=== PATIENT | male | born 1950 | race Caucasian/White ===

== ENCOUNTER 2019-04-30 22:07 | Inpatient (IN) | payer MEDICARE, BC, SELFPAY ==
[2019-04-30 22:12] VITALS: BP 185/85; PULSE 64; RESP 18; TEMP 36.6; O2SAT 98; BMI 26.8
[2019-04-30] MEDS: SODIUM CHLORIDE 0.9% 1,000 ML 1000 ML IV (22:21)
[2019-04-30] MEDS: KETOROLAC 60 MG/2 ML VIAL 15 MG IV (22:21)
[2019-04-30] MEDS: ONDANSETRON 4 MG/2 ML INJ IV (22:21)
[2019-04-30 22:26] LABS: Add Manual Diff / Slide Review NO; Basophils Absolute Auto 0 /uL (0-100); Basophils Percent Auto 0.3 % (0-2); Eosinophils Absolute Auto 100 /uL (0-450); Eosinophils Percent Auto 2.1 % (2-4); Hematocrit 37.8 % (41-53); Hemoglobin 12.8 g/dL (13.5-17.5); Lymphocytes Absolute Auto 1000 /uL (1100-4500); Mean Corpuscular HGB Conc 33.9 % (30-36); Mean Corpuscular Hemoglobin 32.4 PG (26-34); Mean Corpuscular Volume 95.6 fL (80-100); Monocytes Absolute Auto 700 /uL (0-900); Monocytes Percent Auto 12.2 % (3-14); Neutrophils Absolute Auto 4100 /uL (1500-7000); Neutrophils Percent Auto 69.4 % (50-75); Platelet Count 166 X10^3/uL (150-400); Red Blood Cell Count 3.95 X10^6/uL (4.5-5.9); Red Cell Distribution Width 13.7 % (11.6-14.8)
[2019-04-30 22:35] LABS: BUN Creatinine Ratio 14.2 (6-22); Blood Urea Nitrogen 75 mg/dL (9-20); Calcium 9.3 mg/dL (8.4-10.2); Carbon Dioxide 20 mmol/L (22-32); Chloride 109 mmol/L (98-107); Estimated Glomerular Filt Rate 10.8 mL/min (>60); Glucose 114 mg/dL (80-110); HEMOLYSIS < 15 (0-50); Potassium 4.9 mmol/L (3.4-5.1); Sodium 139 mmol/L (137-145)
--- NOTE | 2019-04-30 22:36 | ED.ABDPAIN ---
HPI - Abdominal Pain General Chief Complaint: Abdominal Pain Stated Complaint: Kidney Stone Time Seen by Provider: 04/30/19 22:07 Source: patient and family Mode of arrival: ambulatory Limitations: no limitations History of Present Illness HPI narrative: 68-year-old male occasional smoker with medical history significant for stroke secondary to PFO (which has been repaired), GERD, hypertension, and kidney stones presents with his with a chief complaint of severe right lower quadrant pain with radiation to his right flank over the course of the day. He denies any provocation or palliation of the pain and states that it is colicky in nature, seemingly having a mind of its own. He has had kidney stones in the past and states this feels just like prior stones. Patient denies dysuria or hematuria, but does admit to frequent night time urination and excessive thirst as of late. MD complaint: abdominal pain and flank pain Onset (ago): hour(s) Pain Consistency: intermittent Location: RLQ and R flank Severity: moderate Radiation: R flank Relieving factors: nothing Exacerbating factors: nothing Related Data Home Medications Medication Instructions Recorded Confirmed aspirin 325 mg PO QDAY #0 10/03/16 cholecalciferol (vitamin D3) 5,000 iu PO QDAY #0 10/03/16 glucosamine sulfate [Genicin] 1,500 mg PO Q DAY #0 10/03/16 ibuprofen 600 mg PO PRN PRN #0 10/03/16 lisinopril 10 mg PO QDAY #0 10/03/16 omega 7-rdt-mbw-fish oil [Fish Oil] 1,000 mg PO QDAY #0 10/03/16 omeprazole 20 mg PO QDAY #0 10/03/16 [flax seed] #0 11/18/17 Allergies Allergy/AdvReac Type Severity Reaction Status Date / Time levofloxacin [From LEVAQUIN] Allergy Mild RASH Unverified 01/03/18 12:38 hydroxyzine [From VISTARIL] AdvReac Intermediate LOOPY Unverified 01/03/18 12:38 Review of Systems Constitutional Denies chills, Denies fever(s), Denies lethargy and Denies weakness Eyes Denies change in vision, Denies eye discharge, Denies irritation and Denies loss of vision ENT Ears, Nose, Mouth, and Throat: Denies change in voice, Denies neck pain and Denies sore throat Cardiovascular Denies chest pain, Denies irregular heart rhythm, Denies lightheadedness, Denies palpitations, Denies dyspnea, Denies dyspnea on exertion and Denies orthopnea Respiratory Denies cough, Denies dyspnea, Denies dyspnea on exertion and Denies wheezing Gastrointestinal Gastrointestinal: Denies abdominal pain, Denies change in bowel habits, Denies diarrhea, Denies nausea and Denies vomiting Genitourinary Denies hematuria, Reports flank pain, Reports nocturia, Denies urinary incontinence and Denies urinary urgency Musculoskeletal Denies neck pain Integumentary/Breasts Denies pruritus, Denies erythema, Denies rash and Denies wounds Neurologic Denies confusion, Denies loss of vision and Denies weakness Psychiatric Denies anxiety, Denies confusion, Denies depression, Denies homicidal ideation and Denies suicidal ideation Endocrine Denies palpitations Hematologic/Lymphatic Denies easy bruising Allergic/Immunologic Denies wheezing [facility] Medical History (Updated 05/01/19 @ 00:14 by Jordy Kern DO) Obstructive sleep apnea syndrome (Chronic) Snoring (Resolved) Primary insomnia (Chronic) CVA (cerebral vascular accident) (Chronic) Hypertension (Chronic) Surgical History (Updated 08/07/18 @ 18:59 by NIXON Nettles) S/P percutaneous patent foramen ovale closure (Chronic ~2007) Social History Smoking Status: Current some day smoker Social History Smoking Status: Current some day smoker Exam Narrative Exam Narrative: GENERAL: 68-year-old male appears younger than stated age and clearly uncomfortable, alert oriented x3, GCS 15 HEAD: Atraumatic. Normocephalic. No temporal or scalp tenderness. EYES: Pupils equal round and reactive. Extraocular motions intact. No scleral icterus. No injection or drainage. ENT: Nose without bleeding, purulent drainage or septal hematoma. Throat without erythema, tonsillar hypertrophy or exudate. Uvula midline. Airway patent. NECK: Trachea midline. No JVD or lymphadenopathy. Supple, nontender, no meningeal signs. CARDIOVASCULAR: Regular rate and rhythm without murmurs, gallops, or rubs. RESPIRATORY: Clear to auscultation. Breath sounds equal bilaterally. No wheezes, rales, or rhonchi. GASTROINTESTINAL: Abdomen soft, mild suprapubic tenderness, nondistended. No hepato-splenomegaly, or palpable masses. No guarding. EXTREMITIES: No clubbing, cyanosis, or edema. No joint tenderness, effusion, or edema noted. BACK: Nontender without deformity or crepitance. No flank tenderness. NEURO: AOx3. SKIN: No rash or erythema. Initial Vital Signs Initial Vital Signs: Vital Signs Temperature 97.9 F 04/30/19 22:12 Pulse Rate 64 04/30/19 22:12 Respiratory Rate 18 04/30/19 22:12 Blood Pressure 185/85 H 04/30/19 22:12 Pulse Oximetry 98 04/30/19 22:12 Course Orders Ordered: ED Orders 04/30/19 22:15 Alanine Aminotransferase Stat Aspartate Aminotransferase Stat Basic Metabolic Panel Stat Complete Blood Count AUTO DIFF Stat Prostate Specific Antigen Stat 04/30/19 22:52 CT kidney ureter bladder (KUB) Stat 05/01/19 00:30 Creatinine & eGFR Stat 05/01/19 03:05 Creatinine & eGFR Stat Belladonna Alkaloids/Opium (B&O Supprettes) 1 each OR Q6HR PRN PRN Reason: Spasms Last Admin: 05/01/19 02:41 Dose: 1 each Ondansetron HCl (Zofran) 4 mg IV Q4HR PRN PRN Reason: Nausea And Vomiting Last Admin: 04/30/19 22:21 Dose: 4 mg Discontinued Medications Sodium Chloride (Normal Saline 0.9%) 1,000 mls @ 1,000 mls/hr IV BOLUS ONE Stop: 04/30/19 23:09 Last Infusion: 04/30/19 23:21 Dose: 0 mls/hr Admin: 04/30/19 22:21 Dose: 1,000 mls/hr Ketorolac Tromethamine (Toradol) 15 mg IV NOW ONE Stop: 04/30/19 22:11 Last Admin: 04/30/19 22:21 Dose: 15 mg Reevaluation(s) Reevaluation #1: Ashby catheter placed after bladder distension noted on CT, rapid improvement of symptoms, large volume of urine Consultations Consultation #1: call to urology at . No additional intervention needed at this time, certainly no need for transfer. Ashby needs to stay in until follow up with local urology Consultation #2: call to Nephrology at [facility]. No need for transfer. Local admission appropriate given downward trend of Cr/GFR, normal electrolytes, and reversible cause of renal failure Consultation #3: hospitalist happy to accept patient Vital Signs - 8 hr 04/30/19 22:12 04/30/19 23:15 04/30/19 23:33 Temperature 97.9 F Pulse Rate 64 52 L 50 L Respiratory Rate 18 16 Blood Pressure 185/85 H Blood Pressure [Left Arm] 154/80 H 154/100 H Pulse Oximetry 98 100 100 05/01/19 00:01 05/01/19 00:36 05/01/19 00:40 Temperature Pulse Rate 57 L 51 L 51 L Respiratory Rate 16 Blood Pressure Blood Pressure [Left Arm] 163/80 H 151/79 H 141/79 H Pulse Oximetry 100 98 99 05/01/19 02:03 05/01/19 03:37 Temperature Pulse Rate 53 L 50 L Respiratory Rate 16 Blood Pressure Blood Pressure [Left Arm] 148/75 H 133/79 Pulse Oximetry 99 97 MDM - Abdominal Pain Lab Data Result diagrams: 04/30/19 22:15 05/01/19 03:05 Lab Results 04/30/19 04/30/19 04/30/19 Range/Units 00:30 22:15 22:15 WBC 6.0 (4.5-11.0) X10^3/uL RBC 3.95 L (4.5-5.9) X10^6/uL Hgb 12.8 L (13.5-17.5) g/dL Hct 37.8 L (41-53) % MCV 95.6 (80-100) fL MCH 32.4 (26-34) PG MCHC 33.9 (30-36) % RDW 13.7 (11.6-14.8) % Plt Count 166 (150-400) X10^3/uL Neut % (Auto) 69.4 (50-75) % Lymph % (Auto) 16.0 L (25-40) % [place] % (Auto) 12.2 (3-14) % Eos % (Auto) 2.1 (2-4) % Baso % (Auto) 0.3 (0-2) % Neut # (Auto) 4100 (7746-5524) /uL Lymph # (Auto) 1000 L (2920-6797) /uL [place] # (Auto) 700 (0-900) /uL Eos # (Auto) 100 (0-450) /uL Baso # (Auto) 0 (0-100) /uL Sodium 139 (137-145) mmol/L Potassium 4.9 (3.4-5.1) mmol/L Chloride 109 H (98-107) mmol/L Carbon Dioxide 20 L (22-32) mmol/L BUN 75 H (9-20) mg/dL Creatinine 5.30 H (0.66-1.25) mg/dL Estimated GFR 10.8 L (>60) mL/min BUN/Creatinine Ratio 14.2 (6-22) Glucose 114 H (80-110) mg/dL Calcium 9.3 (8.4-10.2) mg/dL AST (17-59) IU/L ALT (21-72) IU/L Prostate Specific Ag (0.10-4.00) ng/mL Urine RBC 0-1/hpf (0-5/HPF) Urine WBC None seen (0-5/HPF) Ur Squamous Epith Cells None seen (0-5/HPF) Urine Bacteria None seen (None) Ur Culture Indicated? Cult not indicated 04/30/19 05/01/19 05/01/19 Range/Units 22:15 00:30 03:05 WBC (4.5-11.0) X10^3/uL RBC (4.5-5.9) X10^6/uL Hgb (13.5-17.5) g/dL Hct (41-53) % MCV (80-100) fL MCH (26-34) PG MCHC (30-36) % RDW (11.6-14.8) % Plt Count (150-400) X10^3/uL Neut % (Auto) (50-75) % Lymph % (Auto) (25-40) % [place] % (Auto) (3-14) % Eos % (Auto) (2-4) % Baso % (Auto) (0-2) % Neut # (Auto) (4457-0935) /uL Lymph # (Auto) (3049-9393) /uL [place] # (Auto) (0-900) /uL Eos # (Auto) (0-450) /uL Baso # (Auto) (0-100) /uL Sodium (137-145) mmol/L Potassium (3.4-5.1) mmol/L Chloride (98-107) mmol/L Carbon Dioxide (22-32) mmol/L BUN (9-20) mg/dL Creatinine 4.70 H 3.80 H (0.66-1.25) mg/dL Estimated GFR 12.4 L 15.9 L (>60) mL/min BUN/Creatinine Ratio (6-22) Glucose (80-110) mg/dL Calcium (8.4-10.2) mg/dL AST 20 (17-59) IU/L ALT 17 L (21-72) IU/L Prostate Specific Ag 3.93 (0.10-4.00) ng/mL Urine RBC (0-5/HPF) Urine WBC (0-5/HPF) Ur Squamous Epith Cells (0-5/HPF) Urine Bacteria (None) Ur Culture Indicated? Point of care testing: Urine Dip Bedside Urine Glucose Negative Bedside Urine Bilirubin - Negative Bedside Urine Ketone - Negative Urine Specific [place] 1.015 Bedside Urine Occult Blood +/- Bedside Urine pH 6.0 Bedside Urine Protein - Negative Bedside Urine Nitrite - Negative Bedside Urine Leukocytes - Negative Esterase Critical Care Time Critical Care Time: Yes Total Critical Care Time: 35 Attestation: The high probability of a clinically significant, sudden or life threatening deterioration of the [renal] system(s) required my full and direct attention, intervention and personal management. The aggregate critical care time was [35] minutes. This time is in addition to time spent performing reported procedures but includes the following: [x] Data Review and interpretation [x] Patient assessment and monitoring of vital signs [x] Documentation [x] Medication orders and management Discharge Plan Departure Patient Disposition: Admitted as Observation Clinical Impression: Acute bilateral obstructive uropathy Acute renal failure Qualifiers: Acute renal failure type: unspecified Qualified Code(s): N17.9 - Acute kidney failure, unspecified Admit Date/Time: 05/01/19 03:28 Admit Provider: Cheaynne Matta
--- NOTE | 2019-04-30 22:52 | DI.CT.S_ITS ---
PROCEDURE: CT KIDNEY URETER BLADDER (KUB) INDICATIONS: flank pain, history stones TECHNIQUE: Noncontrast 5 mm thick sections acquired from the diaphragms to the symphysis. 5 mm thick coronal and sagittal reformats were then performed. For radiation dose reduction, the following was used: automated exposure control, adjustment of mA and/or kV according to patient size. COMPARISON: None. FINDINGS: Image quality: Excellent. Lung bases: Lung bases are clear. The abnormal heart size. Prosthetic device between the left and right atria. Urinary system: Right kidney: No stone, moderate hydronephrosis. Calyceal rupture with perirenal fluid tracking predominantly anterior to the kidney. Multiple large exophytic renal cysts. Right ureter: Moderate island as the base of the bladder. No stone. Left kidney: Moderate hydronephrosis. No stone. Multiple large or very large exophytic renal cysts. The left ureter: Moderately dilated to the base of the bladder. No stone. There is significant enlargement of the prostate. The bladder is markedly distended, and trabeculated. Findings are consistent with bladder outlet obstruction. Other solid organs: Numerous hepatic cysts, including a partially peripherally calcified left lobe liver cyst which measures 7.8 cm. No suspicious liver masses. Gallbladder is contracted. Pancreas is normal in contours. Spleen is normal in size. No adrenal nodules. Peritoneum and bowel: Unenhanced bowel loops demonstrate normal wall thickness and caliber. No free fluid or air. The surgical clips suggest remote sigmoid colectomy. Nodes and vessels: No retroperitoneal or mesenteric adenopathy by size criteria. Aorta and inferior vena cava are normal in caliber. Abdominal wall: No ventral hernias. Pelvis: No free pelvic fluid. No inguinal hernias or adenopathy. Bones: No suspicious bony lesions. No vertebral body compression fractures. IMPRESSION: 1. Findings are consistent with bladder outlet obstruction secondary to a one enlarged prostate. The bladder is markedly distended and trabeculated. 2. There is moderate bilateral hydronephrosis and hydroureter to the level of the base of the bladder. This is consistent with obstruction at the bladder outlet. 3. There has been rupture of a right renal calyx with perirenal fluid present. Comment: Final report is concurrent with preliminary interpretation provided by [facility]. Dictated by: Dinh Sellers M.D. on 05/01/2019 at 8:46 Approved by: Dinh Sellers M.D. on 05/01/2019 at 8:54
[2019-04-30 23:15] VITALS: BP 154/80; PULSE 52; RESP 16; O2SAT 100
[2019-04-30 23:33] VITALS: BP 154/100; PULSE 50; O2SAT 100
[2019-04-30 23:50] LABS: Alanine Aminotransferase 17 IU/L (21-72); Aspartate Aminotransferase 20 IU/L (17-59)
--- NOTE | 2019-04-30 23:54 | ED_ITS ---
HPI - Abdominal Pain General Chief Complaint: Abdominal Pain Stated Complaint: Kidney Stone Time Seen by Provider: 04/30/19 22:07 Source: patient and family Mode of arrival: ambulatory Limitations: no limitations History of Present Illness HPI narrative: 68-year-old male occasional smoker with medical history signif icant for stroke secondary to PFO (which has been repaired), GERD, hypertension, and kidney stones presents with his with a chief complaint of severe right lower quadrant pain with radiation to his right flank over the course of the day. He denies any provocation or palliation of the pain and states that it is colicky in nature, seemingly having a mind of its own. He has had kidney stones in the past and states this feels just like prior stones. Patient denies dysuria or hematuria, but does admit to frequent night time urination and excessive thirst as of late. MD complaint: abdominal pain and flank pain Onset (ago): hour(s) Pain Consistency: intermittent Location: RLQ and R flank Severity: moderate Radiation: R flank Relieving factors: nothing Exacerbating factors: nothing Related Data Home Medications Medication Instructions Recorded Confirmed aspirin 325 mg PO QDAY #0 10/03/16 cholecalciferol (vitamin D3) 5,000 iu PO QDAY #0 10/03/16 glucosamine sulfate [Genicin] 1,500 mg PO Q DAY #0 10/03/16 ibuprofen 600 mg PO PRN PRN #0 10/03/16 lisinopril 10 mg PO QDAY #0 10/03/16 omega 6-std-ozw-fish oil [Fish Oil] 1,000 mg PO QDAY #0 10/03/16 omeprazole 20 mg PO QDAY #0 10/03/16 [flax seed] #0 11/18/17 Allergies Allergy/AdvReac Type Severity Reaction Status Date / Time levofloxacin [From LEVAQUIN] Allergy Mild RASH Unverified 01/03/18 12:38 hydroxyzine [From VISTARIL] AdvReac Intermediate LOOPY Unverified 01/03/18 12:38 Review of Systems Constitutional Denies chills, Denies fever(s), Denies lethargy and Denies weakness Eyes Denies change in vision, Denies eye discharge, Denies irritation and Denies loss of vision ENT Ears, Nose, Mouth, and Throat: Denies change in voice, Denies neck pain and Denies sore throat Cardiovascular Denies chest pain, Denies irregular heart rhythm, Denies lightheadedness, Denies palpitations, Denies dyspnea, Denies dyspnea on exertion and Denies orthopnea Respiratory Denies cough, Denies dyspnea, Denies dyspnea on exertion and Denies wheezing Gastrointestinal Gastrointestinal: Denies abdominal pain, Denies change in bowel habits, Denies diarrhea, Denies nausea and Denies vomiting Genitourinary Denies hematuria, Reports flank pain, Reports nocturia, Denies urinary incontinence and Denies urinary urgency Musculoskeletal Denies neck pain Integumentary/Breasts Denies pruritus, Denies erythema, Denies rash and Denies wounds Neurologic Denies confusion, Denies loss of vision and Denies weakness Psychiatric Denies anxiety, Denies confusion, Denies depression, Denies homicidal ideation and Denies suicidal ideation Endocrine Denies palpitations Hematologic/Lymphatic Denies easy bruising Allergic/Immunologic Denies wheezing [facility] Medical History (Updated 05/01/19 @ 00:14 by Jordy Kern DO) Obstructive sleep apnea syndrome (Chronic) Snoring (Resolved) Primary insomnia (Chronic) CVA (cerebral vascular accident) (Chronic) Hypertension (Chronic) Surgical History (Updated 08/07/18 @ 18:59 by NIXON Nettles) S/P percutaneous patent foramen ovale closure (Chronic ~2007) Social History Smoking Status: Current some day smoker Social History Smoking Status: Current some day smoker Exam Narrative Exam Narrative: GENERAL: 68-year-old male appears younger than stated age and clearly uncomfortable, alert oriented x3, GCS 15 HEAD: Atraumatic. Normocephalic. No temporal or scalp tenderness. EYES: Pupils equal round and reactive. Extraocular motions intact. No scleral icterus. No injection or drainage. ENT: Nose without bleeding, purulent drainage or septal hematoma. Throat without erythema, tonsillar hypertrophy or exudate. Uvula midline. Airway patent. NECK: Trachea midline. No JVD or lymphadenopathy. Supple, nontender, no meningeal signs. CARDIOVASCULAR: Regular rate and rhythm without murmurs, gallops, or rubs. RESPIRATORY: Clear to auscultation. Breath sounds equal bilaterally. No wheezes, rales, or rhonchi. GASTROINTESTINAL: Abdomen soft, mild suprapubic tenderness, nondistended. No hepato-splenomegaly, or palpable masses. No guarding. EXTREMITIES: No clubbing, cyanosis, or edema. No joint tenderness, effusion, or edema noted. BACK: Nontender without deformity or crepitance. No flank tenderness. NEURO: AOx3. SKIN: No rash or erythema. Initial Vital Signs Initial Vital Signs: Vital Signs Temperature 97.9 F 04/30/19 22:12 Pulse Rate 64 04/30/19 22:12 Respiratory Rate 18 04/30/19 22:12 Blood Pressure 185/85 H 04/30/19 22:12 Pulse Oximetry 98 04/30/19 22:12 Course Orders Ordered: ED Orders 04/30/19 22:15 Alanine Aminotransferase Stat Aspartate Aminotransferase Stat Basic Metabolic Panel Stat Complete Blood Count AUTO DIFF Stat Prostate Specific Antigen Stat 04/30/19 22:52 CT kidney ureter bladder (KUB) Stat 05/01/19 00:30 Creatinine & eGFR Stat 05/01/19 03:05 Creatinine & eGFR Stat Belladonna Alkaloids/Opium (B&O Supprettes) 1 each NH Q6HR PRN PRN Reason: Spasms Last Admin: 05/01/19 02:41 Dose: 1 each Ondansetron HCl (Zofran) 4 mg IV Q4HR PRN PRN Reason: Nausea And Vomiting Last Admin: 04/30/19 22:21 Dose: 4 mg Discontinued Medications Sodium Chloride (Normal Saline 0.9%) 1,000 mls @ 1,000 mls/hr IV BOLUS ONE Stop: 04/30/19 23:09 Last Infusion: 04/30/19 23:21 Dose: 0 mls/hr Admin: 04/30/19 22:21 Dose: 1,000 mls/hr Ketorolac Tromethamine (Toradol) 15 mg IV NOW ONE Stop: 04/30/19 22:11 Last Admin: 04/30/19 22:21 Dose: 15 mg Reevaluation(s) Reevaluation #1: Ashby catheter placed after bladder distension noted on CT, rapid improvement of symptoms, large volume of urine Consultations Consultation #1: call to urology at . No additional intervention needed at this time, certainly no need for transfer. Ashby needs to stay in until follow up with local urology Consultation #2: call to Nephrology at [facility]. No need for transfer. Local admission appropriate given downward trend of Cr/GFR, normal electrolytes, and reversible cause of renal failure Consultation #3: hospitalist happy to accept patient Vital Signs - 8 hr 04/30/19 22:12 04/30/19 23:15 04/30/19 23:33 Temperature 97.9 F Pulse Rate 64 52 L 50 L Respiratory Rate 18 16 Blood Pressure 185/85 H Blood Pressure [Left Arm] 154/80 H 154/100 H Pulse Oximetry 98 100 100 05/01/19 00:01 05/01/19 00:36 05/01/19 00:40 Temperature Pulse Rate 57 L 51 L 51 L Respiratory Rate 16 Blood Pressure Blood Pressure [Left Arm] 163/80 H 151/79 H 141/79 H Pulse Oximetry 100 98 99 05/01/19 02:03 05/01/19 03:37 Temperature Pulse Rate 53 L 50 L Respiratory Rate 16 Blood Pressure Blood Pressure [Left Arm] 148/75 H 133/79 Pulse Oximetry 99 97 MDM - Abdominal Pain Lab Data Result diagrams: 04/30/19 22:15 05/01/19 03:05 Lab Results 04/30/19 04/30/19 04/30/19 Range/Units 00:30 22:15 22:15 WBC 6.0 (4.5-11.0) X10^3/uL RBC 3.95 L (4.5-5.9) X10^6/uL Hgb 12.8 L (13.5-17.5) g/dL Hct 37.8 L (41-53) % MCV 95.6 (80-100) fL MCH 32.4 (26-34) PG MCHC 33.9 (30-36) % RDW 13.7 (11.6-14.8) % Plt Count 166 (150-400) X10^3/uL Neut % (Auto) 69.4 (50-75) % Lymph % (Auto) 16.0 L (25-40) % [place] % (Auto) 12.2 (3-14) % Eos % (Auto) 2.1 (2-4) % Baso % (Auto) 0.3 (0-2) % Neut # (Auto) 4100 (5539-4136) /uL Lymph # (Auto) 1000 L (8042-8604) /uL Bee # (Auto) 700 (0-900) /uL Eos # (Auto) 100 (0-450) /uL Baso # (Auto) 0 (0-100) /uL Sodium 139 (137-145) mmol/L Potassium 4.9 (3.4-5.1) mmol/L Chloride 109 H (98-107) mmol/L Carbon Dioxide 20 L (22-32) mmol/L BUN 75 H (9-20) mg/dL Creatinine 5.30 H (0.66-1.25) mg/dL Estimated GFR 10.8 L (>60) mL/min BUN/Creatinine Ratio 14.2 (6-22) Glucose 114 H (80-110) mg/dL Calcium 9.3 (8.4-10.2) mg/dL AST (17-59) IU/L ALT (21-72) IU/L Prostate Specific Ag (0.10-4.00) ng/mL Urine RBC 0-1/hpf (0-5/HPF) Urine WBC None seen (0-5/HPF) Ur Squamous Epith Cells None seen (0-5/HPF) Urine Bacteria None seen (None) Ur Culture Indicated? Cult not indicated 04/30/19 05/01/19 05/01/19 Range/Units 22:15 00:30 03:05 WBC (4.5-11.0) X10^3/uL RBC (4.5-5.9) X10^6/uL Hgb (13.5-17.5) g/dL Hct (41-53) % MCV (80-100) fL MCH (26-34) PG MCHC (30-36) % RDW (11.6-14.8) % Plt Count (150-400) X10^3/uL Neut % (Auto) (50-75) % Lymph % (Auto) (25-40) % [place] % (Auto) (3-14) % Eos % (Auto) (2-4) % Baso % (Auto) (0-2) % Neut # (Auto) (1977-6763) /uL Lymph # (Auto) (9611-8349) /uL Bee # (Auto) (0-900) /uL Eos # (Auto) (0-450) /uL Baso # (Auto) (0-100) /uL Sodium (137-145) mmol/L Potassium (3.4-5.1) mmol/L Chloride (98-107) mmol/L Carbon Dioxide (22-32) mmol/L BUN (9-20) mg/dL Creatinine 4.70 H 3.80 H (0.66-1.25) mg/dL Estimated GFR 12.4 L 15.9 L (>60) mL/min BUN/Creatinine Ratio (6-22) Glucose (80-110) mg/dL Calcium (8.4-10.2) mg/dL AST 20 (17-59) IU/L ALT 17 L (21-72) IU/L Prostate Specific Ag 3.93 (0.10-4.00) ng/mL Urine RBC (0-5/HPF) Urine WBC (0-5/HPF) Ur Squamous Epith Cells (0-5/HPF) Urine Bacteria (None) Ur Culture Indicated? Point of care testing: Urine Dip Bedside Urine Glucose Negative Bedside Urine Bilirubin - Negative Bedside Urine Ketone - Negative Urine Specific [place] 1.015 Bedside Urine Occult Blood +/- Bedside Urine pH 6.0 Bedside Urine Protein - Negative Bedside Urine Nitrite - Negative Bedside Urine Leukocytes - Negative Esterase Critical Care Time Critical Care Time: Yes Total Critical Care Time: 35 Attestation: The high probability of a clinically significant, sudden or life threatening deterioration of the [renal] system(s) required my full and direct attention, intervention and personal management. The aggregate critical care time was [35] minutes. This time is in addition to time spent performing reported procedures but includes the following: [x] Data Review and interpretation [x] Patient assessment and monitoring of vital signs [x] Documentation [x] Medication orders and management Discharge Plan Departure Patient Disposition: Admitted as Observation Clinical Impression: Acute bilateral obstructive uropathy Acute renal failure Qualifiers: Acute renal failure type: unspecified Qualified Code(s): N17.9 - Acute kidney failure, unspecified Admit Date/Time: 05/01/19 03:28 Admit Provider: Cheyanne Matta
[2019-05-01] VITALS (14 sets, daily range): BP systolic 133–163; BP diastolic 60–85; PULSE 40–57; RESP 16–18; TEMP 36.4–37.1; O2SAT 96–100; BMI 26.8
[2019-05-01 00:22] LABS: Prostate Specific Antigen 3.93 ng/mL (0.10-4.00)
[2019-05-01 00:34] LABS: Bacteria Urine None Seen; WBC Urine None Seen (0-5/HPF)
[2019-05-01 00:47] LABS: Culture Indicated Urine Cult Not Indicated; RBC Urine 0-1/HPF (0-5/HPF); Squamous Epithelial Cell Urine None Seen (0-5/HPF)
[2019-05-01 00:57] LABS: Estimated Glomerular Filt Rate 12.4 mL/min (>60)
--- NOTE | 2019-05-01 02:36 | PC.NURSE ---
pt ambulating to the bathroom to attempt a bowel movement
[2019-05-01] MEDS: BELLADONNA/OPIUM SUPPOSITORIES 1 EACH PR (02:41)
[2019-05-01 03:23] LABS: Estimated Glomerular Filt Rate 15.9 mL/min (>60)
--- NOTE | 2019-05-01 04:49 | PM.HP.1 ---
History of Present Illness Date Patient Seen: 05/01/19 Time Patient Seen: 04:50 Chief complaint: Kidney Stone Narrative: The patient is a 68-year-old male with PMH significant for PFO (s/p PFO closure), TIA/CVA w/residual deficit, HTN, nephrolithiasis (4-5 lifetime episodes, passed on his own w/o surgical intervention), PURNIMA (on CPAP), current tobacco dependence, OA (s/p bilateral knee replacement), and spinal stenosis. Patient does use NSAIDs daily. Patient presented to the ED out of concern for abdominal pain. Symptom onset is acute, initially noted to days ago. Initially pain localized to the LLQ of the abdomen, patient felt he was constipated and treated discomfort with milk of magnesia. Shortly after pain migrated to the RLQ of the abdomen now radiating posteriorly to the right flank. Associated symptoms include nausea and decreased urine output. Denies fever and chills. No chest pain, palpitations, dizziness, lightheadedness, dysuria, or hematuria. Patient takes naproxen daily for osteoarthritis and lumbar pain. In the ED initial lab work revealed a creatinine of 5.3, which is significantly elevated from baseline of 0.8. CT of A/P suggestive bladder outlet obstruction with bilateral hydroureteronephrosis. No urolithiasis. Enlarged prostate. ED presentation & work-up T 97.9? F BP 185/85 HR 64 RR 18 SpO2 98% on room air GCS 15 WBC 6.0 HGB 12.8 HCT 37.8 PLT 166 NA 139 K 4.9 CL 109 CA 9.3 GLU 114 CO2 20 BUN 75 CR 5.3 AST 20 ALT 17 Prostate specific AG 3.93 Urinalysis negative for sediment CT A/P without contrast Minor atelectasis at the lung bases. Partially visualized atrial septal occluder. 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 Severe bilateral hydroureteronephrosis. Urinary bladder significantly distended and trabeculated suggesting chronic outlet obstruction. The prostate is enlarged. No urolithiasis. Gallbladder solid or is otherwise unremarkable. Bowel gas pattern nonspecific. No obstruction. No hernia or acute fracture. Impression Suspect bladder outlet obstruction with resultant hydroureteronephrosis and distended trabeculated urinary bladder. ED treatment. Hand catheter was placed. Patient has diuresed 3600 ml. Received 1 L NS bolus, 4 mg of IV ondansetron, 15 mg of IV ketorolac, and belladonna/opium suppository Patient History Medical History Obstructive sleep apnea syndrome (Chronic) Snoring (Resolved) Primary insomnia (Chronic) CVA (cerebral vascular accident) (Chronic) Hypertension (Chronic) Surgical History S/P percutaneous patent foramen ovale closure (Chronic ~2007) Social History household members: spouse Smoking Status: Current some day smoker alcohol intake: current Family & Social History Social History: household members spouse Prior Living Arrangements House Safety & Behavioral: Feels Safe in Current Yes Environment Been Physically Hurt or No Threatened By a Person Suicidal Ideation Description None Suicide Plan Description No Plan Tobacco & Substance use: Tobacco type Cigars. Smoke cigarettes in the past. Smoking Status Current some day smoker. Reports 30 year history of tobacco dependence of which 10 years w/ 1 ppd. Currently smokes 1 cigar daily. alcohol intake Current. Social drinker. alcohol intake frequency 0-2 drinks per day Substance Use Type Denies use. Meds Home Medications Medication Instructions Recorded Confirmed Type cholecalciferol (vitamin D3) 5,000 iu PO QDAY #0 10/03/16 05/01/19 History glucosamine sulfate [Genicin] 1,500 mg PO Q DAY #0 10/03/16 05/01/19 History ibuprofen 600 mg PO PRN PRN #0 10/03/16 05/01/19 History lisinopril 10 mg PO QDAY #0 10/03/16 05/01/19 History omega 4-jfq-dfa-fish oil [Fish Oil] 1,000 mg PO QDAY #0 10/03/16 05/01/19 History omeprazole 20 mg PO QDAY #0 10/03/16 05/01/19 History [flax seed] #0 11/18/17 History Allergies Allergy/AdvReac Type Severity Reaction Status Date / Time levofloxacin [From LEVAQUIN] Allergy Mild RASH Unverified 01/03/18 12:38 hydroxyzine [From VISTARIL] AdvReac Intermediate LOOPY Unverified 01/03/18 12:38 Review of Systems Review of Systems All systems reviewed & are unremarkable except as noted in HPI and below Exam Vital Signs (past 8 hours): - 04/30/19 22:12 04/30/19 23:15 04/30/19 23:33 Temperature 97.9 F Pulse Rate 64 52 L 50 L Respiratory Rate 18 16 Blood Pressure 185/85 H Blood Pressure [Left Arm] 154/80 H 154/100 H Pulse Oximetry 98 100 100 05/01/19 00:01 05/01/19 00:36 05/01/19 00:40 Temperature Pulse Rate 57 L 51 L 51 L Respiratory Rate 16 Blood Pressure Blood Pressure [Left Arm] 163/80 H 151/79 H 141/79 H Pulse Oximetry 100 98 99 05/01/19 02:03 05/01/19 03:37 05/01/19 03:57 Temperature 98.5 F Pulse Rate 53 L 50 L 49 L Respiratory Rate 16 17 Blood Pressure 143/79 H Blood Pressure [Left Arm] 148/75 H 133/79 Pulse Oximetry 99 97 98 Oxygen Delivery Method Room Air Oxygen Flow Rate 0 Narrative Exam Narrative: Constitutional: NAD Neurologic: AOx3, no focal neurological deficits Head: NC, AT Eyes: PERRL, EOMI, Ears: external ears normal, no otorrhea Nose: external nose normal, no epistaxis Throat: dry MM, oropharynx w/o exudate Neck: no masses, lymphadenopathy, or JVD Chest / Respiratory: equal chest rise, unlabored respiratory effort, no dyspnea or tachypnea, diminished lower lobes, otherwise clear Heart / CV: S1S2 Abdomen / GI: round, nontender : Moderate suprapubic distention, no CVA tenderness, hand catheter present with hematuria Peripheral / Vascular: warm to touch, DP and PT pulses palpable, BLE edema 2+ pitting (pre-tibial) Skin: no ecchymosis or suspicious lesions / ulcers Objective Labs Result Diagrams: 05/01/19 05:50 05/01/19 05:50 Labs: Laboratory Results - last 24 hr 04/30/19 04/30/19 04/30/19 00:30 22:15 22:15 WBC 6.0 RBC 3.95 L Hgb 12.8 L Hct 37.8 L MCV 95.6 MCH 32.4 MCHC 33.9 RDW 13.7 Plt Count 166 Neut % (Auto) 69.4 Lymph % (Auto) 16.0 L [place] % (Auto) 12.2 Eos % (Auto) 2.1 Baso % (Auto) 0.3 Neut # (Auto) 4100 Lymph # (Auto) 1000 L [place] # (Auto) 700 Eos # (Auto) 100 Baso # (Auto) 0 Sodium 139 Potassium 4.9 Chloride 109 H Carbon Dioxide 20 L BUN 75 H Creatinine 5.30 H Estimated GFR 10.8 L BUN/Creatinine Ratio 14.2 Glucose 114 H Calcium 9.3 AST ALT Prostate Specific Ag Urine RBC 0-1/hpf Urine WBC None seen Ur Squamous Epith Cells None seen Urine Bacteria None seen Ur Culture Indicated? Cult not indicated 04/30/19 05/01/19 05/01/19 22:15 00:30 03:05 WBC RBC Hgb Hct MCV MCH MCHC RDW Plt Count Neut % (Auto) Lymph % (Auto) [place] % (Auto) Eos % (Auto) Baso % (Auto) Neut # (Auto) Lymph # (Auto) [place] # (Auto) Eos # (Auto) Baso # (Auto) Sodium Potassium Chloride Carbon Dioxide BUN Creatinine 4.70 H 3.80 H Estimated GFR 12.4 L 15.9 L BUN/Creatinine Ratio Glucose Calcium AST 20 ALT 17 L Prostate Specific Ag 3.93 Urine RBC Urine WBC Ur Squamous Epith Cells Urine Bacteria Ur Culture Indicated? Assessment & Plan Assessment & Plan narrative: Patient is admitted for obstructive uropathy and LUIS FERNANDO. Obstructive uropathy, acute, present on admission, active LUIS FERNANDO with benign urinary sediment. No evidence of an infection. CT imaging with findings of polycystic kidneys, severe bilateral hydroureteronephrosis, urinary bladder distension, and trabeculation the bladder. RF for obstructive uropathy include nephrolithiasis and enlarged prostate - Urethral catheter inserted in ED. Manage accordingly. Explained to the patient that he may need to go home with a Hand catheter. - Concern for post-obstructive diuresis, UO 4300 (3600 ED + 700 on unit), will need to monitor closely; so far has received 1L on IVF. - NS bolus 1L, then NS at 250 ml / hr - Close monitoring of VS, I/O (Q2H), and electrolytes - Replete electrolyte disturbances accordingly - Supportive care: pain and nausea management Acute kidney injury, present on admission, active Baseline sCr 0.8. Presented w/ sCr 5.3. LUIS FERNANDO in the setting of obstructive uropathy. Recovery of renal function will depend on extent induration of the obstruction. - sCr downward trending, 5.3 -> 4.7 -> 3.8, continue trending - Freq lab monitoring and e-lyte repletion Post-obstructive diuresis, acute, complication of bladder decompression, active Initial output of 1000 mils post insertion of urethral catheter. Followed by 800 to a 1000 male diuresis each hour. Diuresed 4300 since 2350 to 0500, w/ 1L of infused. - 1L NS bolus, followed NS at 250 ml/hr - Close monitoring of urine output and electrolytes. Consider checking urine and serum osmolality. renal panel, mag q4h starting at 10 am x6 - IV fluid with normal saline, will need to be adjusted to no more than 75% of the prior to our urine output to avoid stimulation of further diuresis - Close monitoring for hypovolemia, hemodynamic instability, acid-base disturbances, and electrolyte imbalance Metabolic acidosis w/normal anion gap, acute, present on admission, active - Complication of bladder outlet obstruction, correct underlying condition Essential hypertension, chronic condition, present on admission, active Patient notes will control BP at home with lisinopril. BP elevated on initial presentation, likely a sequela of bladder outlet obstruction. BP downward trending with bladder decompression. Patient is at risk of transient hypotension and post obstructive diuresis. - Monitor BP closely, Q4H and prn - Hold CHIMNEY BUILDER BRICK lisinopril at this time Hematuria, acute, present on admission, active Hematuria has become apparent after placement urethral catheter. Likely transient. - Continue monitoring - Trend hemoglobin level, H/H q8h starting at 10 am x3 Full code. Spouse is the designated surrogate decision maker. Home medications reviewed and reconciled accordingly. VTE prophylaxis with SCDs. Quality VTE Deep Vein Thrombosis/Pulmonary Embolism Present on Admission: No
--- NOTE | 2019-05-01 05:22 | PC.ADMIT ---
Safe handoff from Sandra MOREAU, ED. Pt arrived on stretcher at 0357, was able to ambulate to bed. Pt VSS, lung sounds are clear bilaterally. Pt denies pain or nausea at this time. Pt has hand catheter that has urine output w/ hematuria. Pt was educated about the use of call light and it is within reach. Patient is calm and cooperative. [email or web address] Admission Note: The patient,Richmond Jane,68 y/o, was given written information regarding hospital policies, unit procedures and contact persons. Patient's smoking status: Current some day smoker. Vital Signs - 8 hr 04/30/19 22:12 04/30/19 23:15 04/30/19 23:33 Temperature 97.9 F Pulse Rate 64 52 L 50 L Respiratory Rate 18 16 Blood Pressure 185/85 H Blood Pressure [Left Arm] 154/80 H 154/100 H Pulse Oximetry 98 100 100 05/01/19 00:01 05/01/19 00:36 05/01/19 00:40 Temperature Pulse Rate 57 L 51 L 51 L Respiratory Rate 16 Blood Pressure Blood Pressure [Left Arm] 163/80 H 151/79 H 141/79 H Pulse Oximetry 100 98 99 05/01/19 02:03 05/01/19 03:37 05/01/19 03:57 Temperature 98.5 F Pulse Rate 53 L 50 L 49 L Respiratory Rate 16 17 Blood Pressure 143/79 H Blood Pressure [Left Arm] 148/75 H 133/79 Pulse Oximetry 99 97 98
[2019-05-01] MEDS: SODIUM CHLORIDE 0.9% 500 ML 1000 ML IV (05:53)
--- NOTE | 2019-05-01 06:02 | PC.NURSE ---
Pt had 750 ml of urine out at 0550, 500ml bolus of NS given. Pt then started on NS 250ml/hr.
[2019-05-01 06:12] LABS: Add Manual Diff / Slide Review NO; Basophils Absolute Auto 0 /uL (0-100); Basophils Percent Auto 0.4 % (0-2); Eosinophils Absolute Auto 100 /uL (0-450); Eosinophils Percent Auto 2.3 % (2-4); Hematocrit 34.4 % (41-53); Hemoglobin 11.9 g/dL (13.5-17.5); Lymphocytes Absolute Auto 900 /uL (1100-4500); Lymphocytes Percent Auto 18.1 % (25-40); Mean Corpuscular HGB Conc 34.5 % (30-36); Mean Corpuscular Hemoglobin 32.7 PG (26-34); Mean Corpuscular Volume 94.9 fL (80-100); Monocytes Absolute Auto 600 /uL (0-900); Monocytes Percent Auto 10.9 % (3-14); Neutrophils Absolute Auto 3600 /uL (1500-7000); Neutrophils Percent Auto 68.3 % (50-75); Platelet Count 156 X10^3/uL (150-400); Red Blood Cell Count 3.62 X10^6/uL (4.5-5.9); Red Cell Distribution Width 13.8 % (11.6-14.8); White Blood Cell Count 5.2 X10^3/uL (4.5-11.0)
[2019-05-01 06:18] LABS: Lactate (Lactic Acid) 0.6 mmol/L (0.7-2.1)
[2019-05-01 06:19] LABS: Albumin 3.6 g/dL (3.5-5.0); BUN Creatinine Ratio 16.2 (6-22); Blood Urea Nitrogen 55 mg/dL (9-20); Calcium 9.3 mg/dL (8.4-10.2); Carbon Dioxide 20 mmol/L (22-32); Chloride 112 mmol/L (98-107); Glucose 98 mg/dL (80-110); HEMOLYSIS < 15 (0-50); Magnesium 2.5 mg/dL (1.6-2.3); Phosphorous 4.2 mg/dL (2.3-3.7); Sodium 140 mmol/L (137-145); Uric Acid 8.1 mg/dL (3.5-8.5)
[2019-05-01] MEDS: SODIUM CHLORIDE 0.9% 1,000 ML 250 ML IV ×3 (06:25→14:35)
--- NOTE | 2019-05-01 09:18 | CM.DANOTE ---
DCP: Case received, EMR reviewed and met with patient. Introduced self and role. Was able to meet with patient and obtain some baseline health history. DCP assessment completed with information currently available. Patient is a 68 year old male who admitted early this morning to the care of the hospitalist team. PCP: Dr. Crockett. Payer: confirmed: Medicare/BCBS Out of [facility]. Patient came to the hospital via family vehicle secondary to symptoms of kidney stone. Patient holds diagnosis of urinary retention. Met with patient in his room. He stated, I really thought it was a kidney stone, because I have had them before, and they told me that it could be my prostate, because there was some kind of blockage. At this time, he has a hand catheter. Patient is alert and oriented, independent. He resides here in [place] with his spouse, Fanta. He will be having some tests while he is here in the hospital. P: DCP to follow closely, and be available for any resources that patient may need at discharge. Rika Bah RN/Weigher Operator
[2019-05-01 11:51] LABS: Hematocrit 35.2 % (41-53); Hemoglobin 12.1 g/dL (13.5-17.5)
[2019-05-01 11:59] LABS: Albumin 3.6 g/dL (3.5-5.0); BUN Creatinine Ratio 18.8 (6-22); Blood Urea Nitrogen 45 mg/dL (9-20); Calcium 8.9 mg/dL (8.4-10.2); Carbon Dioxide 21 mmol/L (22-32); Chloride 112 mmol/L (98-107); Glucose 101 mg/dL (80-110); HEMOLYSIS < 15 (0-50); Magnesium 2.4 mg/dL (1.6-2.3); Phosphorous 3.3 mg/dL (2.3-3.7); Potassium 5.3 mmol/L (3.4-5.1); Sodium 140 mmol/L (137-145)
[2019-05-01 14:53] LABS: Albumin 3.5 g/dL (3.5-5.0); Blood Urea Nitrogen 42 mg/dL (9-20); Calcium 8.8 mg/dL (8.4-10.2); Carbon Dioxide 20 mmol/L (22-32); Chloride 112 mmol/L (98-107); Estimated Glomerular Filt Rate 33.3 mL/min (>60); Glucose 121 mg/dL (80-110); HEMOLYSIS < 15 (0-50); Magnesium 2.2 mg/dL (1.6-2.3); Phosphorous 3.4 mg/dL (2.3-3.7); Potassium 5.1 mmol/L (3.4-5.1); Sodium 141 mmol/L (137-145)
--- NOTE | 2019-05-01 16:07 | PM.EVENT ---
Date Patient Seen: 05/01/19 Patient seen and examined, chart reviewed, patient has no specific complaints. He is not short of breath and has no pain. He continues to put out significant urine. His creatinine has improved from 5.3 down to 2.0. He understands that he will likely will be discharged home on a Ashby catheter. Will start Flomax at this time. Impression 1. Acute renal failure, secondary to ATN, improving Plan continue IV hydration, add Flomax
[2019-05-01] MEDS: TAMSULOSIN 0.4 MG CAPSULE PO (17:19)
[2019-05-01] MEDS: SODIUM CHLORIDE 0.9% 1,000 ML 150 ML IV (17:20)
[2019-05-01 21:07] LABS: Hematocrit 35.4 % (41-53)
[2019-05-01 21:14] LABS: Albumin 3.5 g/dL (3.5-5.0); BUN Creatinine Ratio 22.4 (6-22); Blood Urea Nitrogen 38 mg/dL (9-20); Carbon Dioxide 23 mmol/L (22-32); Chloride 109 mmol/L (98-107); Estimated Glomerular Filt Rate 40.2 mL/min (>60); Glucose 106 mg/dL (80-110); HEMOLYSIS < 15 (0-50); Magnesium 2.2 mg/dL (1.6-2.3); Phosphorous 3.7 mg/dL (2.3-3.7); Potassium 5.3 mmol/L (3.4-5.1); Sodium 138 mmol/L (137-145)
[2019-05-02] VITALS (7 sets, daily range): BP systolic 127–144; BP diastolic 61–79; PULSE 46–58; RESP 16–18; TEMP 36.5–37; O2SAT 94–98
[2019-05-02 02:08] LABS: Hematocrit 35.1 % (41-53); Hemoglobin 12.3 g/dL (13.5-17.5)
[2019-05-02 02:24] LABS: Albumin 3.3 g/dL (3.5-5.0); Blood Urea Nitrogen 33 mg/dL (9-20); Carbon Dioxide 23 mmol/L (22-32); Chloride 111 mmol/L (98-107); Estimated Glomerular Filt Rate 46.4 mL/min (>60); Glucose 98 mg/dL (80-110); HEMOLYSIS < 15 (0-50); Magnesium 2.1 mg/dL (1.6-2.3); Phosphorous 3.3 mg/dL (2.3-3.7); Sodium 138 mmol/L (137-145)
[2019-05-02] MEDS: SODIUM CHLORIDE 0.9% 1,000 ML 150 ML IV (03:04)
--- NOTE | 2019-05-02 03:11 | PC.NURSE ---
Senior Design Engineer Note: 0000: Pt resting in bed. Vital signs stable. Remains on telemetry. Ashby catheter patent, draining large amt clear asha urine. Ashby drainage bag changed to urinemeter. IV in place in rt forearm, with NS infusing at 150cc/hr. Pt denies pain or discomfort at this time.
[2019-05-02 06:04] LABS: Add Manual Diff / Slide Review NO; Basophils Absolute Auto 0 /uL (0-100); Basophils Percent Auto 0.7 % (0-2); Eosinophils Absolute Auto 100 /uL (0-450); Eosinophils Percent Auto 2.5 % (2-4); Hematocrit 36.9 % (41-53); Hemoglobin 12.6 g/dL (13.5-17.5); Lymphocytes Absolute Auto 1400 /uL (1100-4500); Lymphocytes Percent Auto 27.2 % (25-40); Mean Corpuscular Hemoglobin 32.4 PG (26-34); Mean Corpuscular Volume 95.3 fL (80-100); Monocytes Absolute Auto 500 /uL (0-900); Monocytes Percent Auto 10.1 % (3-14); Neutrophils Absolute Auto 3100 /uL (1500-7000); Neutrophils Percent Auto 59.5 % (50-75); Platelet Count 163 X10^3/uL (150-400); Red Blood Cell Count 3.88 X10^6/uL (4.5-5.9); Red Cell Distribution Width 13.5 % (11.6-14.8); White Blood Cell Count 5.2 X10^3/uL (4.5-11.0)
[2019-05-02 06:15] LABS: Albumin 3.6 g/dL (3.5-5.0); BUN Creatinine Ratio 18.1 (6-22); Blood Urea Nitrogen 29 mg/dL (9-20); Calcium 9.2 mg/dL (8.4-10.2); Carbon Dioxide 24 mmol/L (22-32); Chloride 111 mmol/L (98-107); Estimated Glomerular Filt Rate 43.1 mL/min (>60); Glucose 97 mg/dL (80-110); HEMOLYSIS < 15 (0-50); Magnesium 2.2 mg/dL (1.6-2.3); Phosphorous 3.2 mg/dL (2.3-3.7); Potassium 5.1 mmol/L (3.4-5.1); Sodium 140 mmol/L (137-145)
[2019-05-02 06:23] LABS: BUN Creatinine Ratio 20.7 (6-22); Blood Urea Nitrogen 29 mg/dL (9-20); Calcium 9.2 mg/dL (8.4-10.2); Carbon Dioxide 25 mmol/L (22-32); Chloride 111 mmol/L (98-107); Estimated Glomerular Filt Rate 50.2 mL/min (>60); Glucose 98 mg/dL (80-110); HEMOLYSIS 16 (0-50); Sodium 139 mmol/L (137-145)
[2019-05-02] MEDS: TAMSULOSIN 0.4 MG CAPSULE PO (08:53)
--- NOTE | 2019-05-02 11:41 | P.DS_ITS ---
History of Present Illness Date Patient Seen: 05/02/19 Chief complaint: Kidney Stone Narrative: he patient is a 68-year-old male with PMH significant for PFO (s/p PFO closure), TIA/CVA w/residual deficit, HTN, nephrolithiasis (4-5 lifetime episodes, passed on his own w/o surgical intervention), PURNIMA (on CPAP), current tobacco dependence, OA (s/p bilateral knee replacement), and spinal stenosis. Patient does use NSAIDs daily. Patient presented to the ED out of concern for abdominal pain. Symptom onset is acute, initially noted to days ago. Initially pain localized to the LLQ of the abdomen, patient felt he was constipated and treated discomfort with milk of magnesia. Shortly after pain migrated to the RLQ of the abdomen now radiating posteriorly to the right flank. Associated symptoms include nausea and decreased urine output. Denies fever and chills. No chest pain, palpitations, dizziness, lightheadedness, dysuria, or hematuria. Patient takes naproxen daily for osteoarthritis and lumbar pain. In the ED initial lab work revealed a creatinine of 5.3, which is significantly elevated from baseline of 0.8. CT of A/P suggestive bladder outlet obstruction with bilateral hydroureteronephrosis. No urolithiasis. Enlarged prostate. Discharge Providers Date of admission: 05/01/19 03:28 Discharge Date: 05/02/19 Primary care physician: Mirza Crockett MD Discharge provider: Yaquelin Torres MD Summary Discharge Diagnosis: 1. Acute renal failure secondary to 2. Bladder outlet obstruction 3. Bilateral hydronephrosis 4. Prostatic hypertrophy 5. Hypertension 6. GERD 7. Bilateral renal cysts Hospital Course: The patient is 68-year-old male who was admitted to the [facility] for acute renal failure secondary to bladder outlet obstruction with associated bilateral hydronephrosis. Patient had a Hand catheter placed with significant diuresis following. He was given IV hydration which resulted and improvement. His electrolytes remain normal. His creatinine decreased from 5.3 down to 1.4. The patient had evidence of chronic urinary retention on CT scan. Therefore Hand catheter was left in place. The patient was started on Flomax. He will follow up as an outpatient with Urology. The patient recovered quicker than expected. The patient denies any abdominal pain, he does have some discomfort from the Hand catheter, otherwise has no significant complaints. He had minimal bleeding with movement but the urine remains clear. The patient was deemed rajiv ropriate for discharge and arrangements are being made for him to follow up with Urology as an outpatient and he will follow up his primary care physician Dr. Crockett next week. Status at Discharge Cognitive/behavioral status at discharge: oriented Functional status at discharge: independent ambulation Overall status at discharge: patient is back to baseline Time Spent with Patient Less than 30 minutes Exam Vital Signs (past 8 hours): - 05/02/19 05:00 05/02/19 07:10 05/02/19 07:55 Temperature 98.6 F 98.3 F Pulse Rate 54 L 46 L Respiratory Rate 17 16 Blood Pressure 127/61 131/77 Pulse Oximetry 97 94 97 Oxygen Delivery Method Room Air Oxygen Flow Rate 0 Narrative Exam Narrative: Pleasant gentleman in no acute distress Lungs: Clear to auscultation Cardiac exam: Regular rate rhythm normal S1-S2 Abdomen: Soft and nontender Extremities: No edema : Hand catheter in place Objective Labs Result Diagrams: 05/02/19 05:45 05/02/19 05:45 Labs: Laboratory Results - last 24 hr 05/01/19 05/01/19 05/01/19 11:40 11:40 14:28 WBC RBC Hgb 12.1 L Hct 35.2 L MCV MCH MCHC RDW Plt Count Neut % (Auto) Lymph % (Auto) [place] % (Auto) Eos % (Auto) Baso % (Auto) Neut # (Auto) Lymph # (Auto) [place] # (Auto) Eos # (Auto) Baso # (Auto) Sodium 140 141 Potassium 5.3 H 5.1 Chloride 112 H 112 H Carbon Dioxide 21 L 20 L BUN 45 H 42 H Creatinine 2.40 H 2.00 H Estimated GFR 27.0 L 33.3 L BUN/Creatinine Ratio 18.8 21.0 Glucose 101 121 H Calcium 8.9 8.8 Phosphorus 3.3 3.4 Magnesium 2.4 H 2.2 Albumin 3.6 3.5 05/01/19 05/01/19 05/02/19 20:45 20:45 01:55 WBC RBC Hgb 12.0 L 12.3 L Hct 35.4 L 35.1 L MCV MCH MCHC RDW Plt Count Neut % (Auto) Lymph % (Auto) [place] % (Auto) Eos % (Auto) Baso % (Auto) Neut # (Auto) Lymph # (Auto) [place] # (Auto) Eos # (Auto) Baso # (Auto) Sodium 138 Potassium 5.3 H Chloride 109 H Carbon Dioxide 23 BUN 38 H Creatinine 1.70 H Estimated GFR 40.2 L BUN/Creatinine Ratio 22.4 H Glucose 106 Calcium 9.0 Phosphorus 3.7 Magnesium 2.2 Albumin 3.5 05/02/19 05/02/19 05/02/19 01:55 05:45 05:45 WBC 5.2 RBC 3.88 L Hgb 12.6 L Hct 36.9 L MCV 95.3 MCH 32.4 MCHC 34.0 RDW 13.5 Plt Count 163 Neut % (Auto) 59.5 Lymph % (Auto) 27.2 [place] % (Auto) 10.1 Eos % (Auto) 2.5 Baso % (Auto) 0.7 Neut # (Auto) 3100 Lymph # (Auto) 1400 [place] # (Auto) 500 Eos # (Auto) 100 Baso # (Auto) 0 Sodium 138 140 Potassium 5.0 5.1 Chloride 111 H 111 H Carbon Dioxide 23 24 BUN 33 H 29 H Creatinine 1.50 H 1.60 H Estimated GFR 46.4 L 43.1 L BUN/Creatinine Ratio 22.0 18.1 Glucose 98 97 Calcium 9.0 9.2 Phosphorus 3.3 3.2 Magnesium 2.1 2.2 Albumin 3.3 L 3.6 05/02/19 05:45 WBC RBC Hgb Hct MCV MCH MCHC RDW Plt Count Neut % (Auto) Lymph % (Auto) [place] % (Auto) Eos % (Auto) Baso % (Auto) Neut # (Auto) Lymph # (Auto) [place] # (Auto) Eos # (Auto) Baso # (Auto) Sodium 139 Potassium 5.0 Chloride 111 H Carbon Dioxide 25 BUN 29 H Creatinine 1.40 H Estimated GFR 50.2 L BUN/Creatinine Ratio 20.7 Glucose 98 Calcium 9.2 Phosphorus Magnesium Albumin Discharge Plan Discharge Plan Discharge Problem: Acute bilateral obstructive uropathy, Acute renal failure Patient Disposition: Home Discharge comment: Patient to follow up with Urology [facility] [phone] Please call to schedule follow up appointment 1-2 weeks Discharge Med Rec/Prescriptions Prescriptions: New tamsulosin [Flomax] 0.4 mg Capsule 0.4 mg PO DAILY Qty: 30 RF: 0 Continued lisinopril 10 MG tablet 10 mg PO QDAY Qty: 0 RF: 0 omega 5-vni-nal-fish oil [Fish Oil] 1,000 MG capsule 1,000 mg PO QDAY Qty: 0 RF: 0 cholecalciferol (vitamin D3) 10,000 UNIT tablet 5,000 iu PO QDAY Qty: 0 RF: 0 omeprazole 20 MG capsule,delayed release(DR/EC) 20 mg PO QDAY Qty: 0 RF: 0 glucosamine sulfate [Genicin] 500 MG capsule 1,500 mg PO Q DAY Qty: 0 RF: 0 [flax seed] Qty: 0 RF: 0 Discontinued ibuprofen 200 MG tablet 600 mg PO PRN PRN (Reason: Pain (Scale Score 1-3)) Qty: 0 RF: 0 Follow up/Referrals: Mirza Crockett MD [Primary Care Provider] - Provider Discharge Instructions Diet: Low-sodium Activity: as tolerated Other treatments: continue hand catheter Visit Report/Discharge Packet Instructions: How to Care for Your Hand Catheter -- Male, DI for Constipation, Tamsulosin Discharge Data Primary Care Provider: Mirza Crockett Attending Provider: Cheyanne Matta Admit Date/Time: 05/01/19 03:28 Quality VTE Deep Vein Thrombosis/Pulmonary Embolism Present on Admission: No
--- NOTE | 2019-05-02 15:34 | PC.NURSE ---
pending discharge: Pt feels ready to d/c home. MD Torres reviewed d/c instructions with pt. Leg bag given and instructed in use. Pt is able to take the bag off and on leg. Instructed in how to clean the leg bag and hand bag and how to do self cath care. His appt to urology has been made and was already scheduled to see his PCP Crockett this monday. Reviewed d/c instruction sheets. Questions answered. Will d/c home when arrives.
[2019-05-02 15:58] LABS: Prostate Specific Antigen 3.49 ng/mL (0.10-4.00)
--- NOTE | 2019-05-02 16:26 | PC.NURSE ---
Vesna powers note: Patient alert and pleasant. Discharged home via in stable condition. Discussed importance of discharge instructions and follow up appt. with PMD. Verbalized understanding of instructions. Home with via private vehicle.
== END 2019-05-02 16:28 | disposition home or self-care (01) | DRG 683 ==
LOC: ED 05-01 03:28 → AC 05-01 08:55
PROVIDERS: Internal Medicine; Admitting Provider Nurse Practitioner Gerontology; Emergency Provider Emergency Medicine; Family Provider Internal Medicine; PCP Internal Medicine; Visit Provider Nurse Practitioner Gerontology
DX: N17.9 Acute kidney failure, unspecified (principal); N13.8 Other obstructive and reflux uropathy; E87.2 Acidosis; Q61.3 Polycystic kidney, unspecified; N40.1 Benign prostatic hyperplasia with lower urinary tract symptoms; N13.30 Unspecified hydronephrosis; R31.0 Gross hematuria; I10 Essential (primary) hypertension; G47.33 Obstructive sleep apnea (adult) (pediatric); F17.290 Nicotine dependence, other tobacco product, uncomplicated
CPT/HCPCS: 36415; 36591; 51701; 74176; 80048; 80069; 81003; 81015; 82565; 83605; 83735; 84153; 84450; 84460; 84550; 85014; 85018; 85025; 96361; 96374; 96375; 99284; 99285; J1885; J2405

== ENCOUNTER → 2019-05-21 09:32 | Outpatient (CLI) | payer MEDICARE, BC, SELFPAY ==
[2019-05-01 04:07] VITALS: BMI 26.8
--- NOTE | 2019-05-21 | DI.US.S_ITS ---
PROCEDURE: US RENAL COMPLETE INDICATIONS: CYST TECHNIQUE: Real-time scanning was performed of the kidneys and bladder, with image documentation. COMPARISON: [facility], CT, CT KIDNEY URETER BLADDER (KUB), 04/30/2019, 22:56. FINDINGS: Kidneys: Kidneys are normal in size. Right kidney measures 12.6 cm long; left kidney measures 15.8 cm long. Right renal cortical thickness is 1.9 cm; left renal cortical thickness is 1.3 cm. Renal cortical echotexture is normal. No hydronephrosis or nephrolithiasis. No suspicious solid mass lesions. Bilateral simple appearing renal cysts are seen. The largest cyst on the right measures up to 5.9 cm. The largest cyst in the left measures up to 8.3 cm. Bladder: A Ashby catheter decompresses the urinary bladder. There is a nonvascular solid mass versus hematoma seen involving the urinary bladder that measures up to 10.2 cm. Miscellaneous: There is mild free fluid seen involving the left flank, as previously demonstrated. IMPRESSION: No hydronephrosis is now seen. Bilateral prominent renal cysts are seen. The urinary bladder is decompressed by a catheter. There is a 10.2 cm nonvascular focus seen within the bladder, likely representing hemorrhage. Differential diagnosis includes a bladder mass, yet this is considered to be less likely given the prior CT appearance. Mild left flank free fluid can be seen. Dictated by: Bakari Maldonado M.D. on 05/21/2019 at 12:15 Approved by: Bakari Maldonado M.D. on 05/21/2019 at 12:19
== END ==
PROVIDERS: Family Provider Internal Medicine; PCP Internal Medicine; Visit Provider Urology
DX: N28.1 Cyst of kidney, acquired (principal)
CPT/HCPCS: 76770

== ENCOUNTER 2019-05-22 23:45 | Emergency (ER) | payer MEDICARE, BC, SELFPAY ==
[2019-05-01 04:07] VITALS: BMI 26.8
[2019-05-22 23:55] VITALS: BP 136/81; PULSE 75; RESP 15; TEMP 37.1; O2SAT 97; BMI 26.4
--- NOTE | 2019-05-23 00:55 | PC.NURSE ---
Patient reports that his catheter is no longer draining. States he was at his urologist's earlier today and had a 16fr coude placed to a leg bag which was draining great, no blood. States at 2130 the bag stopped draining urine. Pt reports no pain and arrives for further eval. Upon bladder scan, pt had approximately 500mL of urine retained. The present catheter was discontinued without complications and a new 18Fr coude placed to the leg bag which drained 900mL of clear urine. Patient reports he can not feel any difference, but states also that he wasn't feeling the urge to go when he came in either. Patient catheter placed with sterile technique, pt tolerated well. Urine to lab.
[2019-05-23 00:59] VITALS: BP 130/78; PULSE 75; RESP 18; O2SAT 100
[2019-05-23 01:04] LABS: Bacteria Urine None Seen
--- NOTE | 2019-05-23 01:08 | ED.MALEGU ---
HPI - Male Genitourinary General Chief complaint: Urogenital-Male Stated complaint: catheter is leaking, not working properly Time Seen by Provider: 05/23/19 00:23 Source: patient Mode of arrival: ambulatory Limitations: no limitations History of Present Illness HPI Narrative: Patient is a 68-year-old male who presents with leaking around his Ashby catheter. He had acute renal failure due to urinary retention. He was actually at the Urology office today worried Ashby catheter changed. He is unable to urinate on his own. Change around 3:00 p.m.. Around 930 they noticed that it stopped draining he had absolutely no abdominal pain. Related Data Home Medications Medication Instructions Recorded Confirmed cholecalciferol (vitamin D3) 5,000 iu PO QDAY #0 10/03/16 05/01/19 glucosamine sulfate [Genicin] 1,500 mg PO Q DAY #0 10/03/16 05/01/19 lisinopril 10 mg PO QDAY #0 10/03/16 05/01/19 omega 8-rju-ncg-fish oil [Fish Oil] 1,000 mg PO QDAY #0 10/03/16 05/01/19 omeprazole 20 mg PO QDAY #0 10/03/16 05/01/19 [flax seed] #0 11/18/17 Previous Rx's Medication Instructions Recorded tamsulosin [Flomax] 0.4 mg PO DAILY #30 cap 05/02/19 Allergies Allergy/AdvReac Type Severity Reaction Status Date / Time levofloxacin [From LEVAQUIN] Allergy Mild RASH Verified 05/22/19 23:55 hydroxyzine [From VISTARIL] AdvReac Intermediate LOOPY Verified 05/22/19 23:55 Review of Systems Review of Systems Narrative: GENERAL: Denies chills,fever HEENT: Denies throat pain RESPIRATORY: Denies dyspnea, cough, wheezing CARDIOVASCULAR: Denies chest pain, palpitations GASTROINTESTINAL: Denies nausea, vomiting : See HPI MUSCULOSKELETAL: Denies extremity pain, injury SKIN: No rash, no laceration, no pruritus NEUROLOGIC: Denies weakness, dizziness, headache, numbness 8 point review of systems is negative except for those stated above and HPI PFSH Medical History CVA (cerebral vascular accident) (Chronic) Hypertension (Chronic) Obstructive sleep apnea syndrome (Chronic) Primary insomnia (Chronic) Snoring (Resolved) Surgical History S/P percutaneous patent foramen ovale closure (Chronic ~2007) Family History (Updated 05/01/19 @ 06:03 by NIXON Piedra) Grandfather Stroke Sister PFO (patent foramen ovale) Social History household members: spouse Smoking Status: Current some day smoker alcohol intake: current Family History Grandfather Stroke Sister PFO (patent foramen ovale) Social History household members: spouse Smoking Status: Current some day smoker alcohol intake: current Exam Initial Vital Signs Initial Vital Signs: Vital Signs Temperature 98.7 F 05/22/19 23:55 Pulse Rate 75 05/22/19 23:55 Respiratory Rate 15 05/22/19 23:55 Blood Pressure 136/81 05/22/19 23:55 Pulse Oximetry 97 05/22/19 23:55 GENERAL: Well-appearing, well-nourished and in no acute distress. CARDIOVASCULAR: peripheral pulses in tact, cap refill <2 sec RESPIRATORY: No respiratory distress, speaks in full sentences without difficulty ABDOMEN: Soft, nontender, no guarding or rebound : Ashby catheter in place young clean no gross hematuria EXTREMITIES: Normal range of motion, no clubbing or edema. Neurovascularly intact NEUROLOGICAL: Cranial nerves II through XII grossly intact. Normal gait and speech. SKIN: Warm, dry, no petechiae, no rashes or lesions. Course Orders Ordered: ED Orders 05/23/19 00:46 Urine Culture Stat Urine Microscopic Stat Vital Signs Vital signs: Vital Signs - 8 hr 05/22/19 23:55 05/23/19 00:59 Temperature 98.7 F Pulse Rate 75 75 Respiratory Rate 15 18 Blood Pressure 136/81 Blood Pressure [Left Arm] 130/78 Pulse Oximetry 97 100 MDM - Male Genitourinary Lab Data Attestation: I reviewed the patient's lab results. Labs: Lab Results 05/23/19 Range/Units 00:46 Urine RBC 0-1/hpf (0-5/HPF) Urine WBC 5-10/hpf H (0-5/HPF) Urine Bacteria None seen (None) Ur Culture Indicated? Specimen cultured Urine Dip Bedside Urine Glucose Negative Bedside Urine Bilirubin - Negative Bedside Urine Ketone - Negative Urine Specific [place] [facility] 1.010 Bedside Urine Occult Blood +++ Bedside Urine pH 6.0 Bedside Urine Protein - Negative Bedside Urine Urobilinogen - Negative Bedside Urine Nitrite - Negative Bedside Urine Leukocytes + 70 Esterase MDM Narrative Medical decision making narrative: Patient has had a Ashby catheter for at least the last 3 weeks. Some will wait for culture sensitivity to return. At this time he is afebrile he is asymptomatic. Discharge Plan Departure Patient Disposition: Home Clinical Impression: Acute urinary retention Discharge Date/Time: 05/23/19 01:24 Instructions: How to Care for Your Ashby Catheter -- Male Activity Restrictions/Additional Instructions: *You have been diagnosed with urinary retention *What to do: At this time will wait for your culture to return before starting antibiotics. *Continue to take medications as directed *Follow up with your primary care provider in 2-3 days *Return to ER if you should have decreased Ashby output, gross blood in tube or any new, worsening or concerning symptoms Prescriptions: No Action lisinopril 10 MG tablet 10 mg PO QDAY Qty: 0 RF: 0 omega 4-flx-ifm-fish oil [Fish Oil] 1,000 MG capsule 1,000 mg PO QDAY Qty: 0 RF: 0 cholecalciferol (vitamin D3) 10,000 UNIT tablet 5,000 iu PO QDAY Qty: 0 RF: 0 omeprazole 20 MG capsule,delayed release(DR/EC) 20 mg PO QDAY Qty: 0 RF: 0 glucosamine sulfate [Genicin] 500 MG capsule 1,500 mg PO Q DAY Qty: 0 RF: 0 [flax seed] Qty: 0 RF: 0 tamsulosin [Flomax] 0.4 mg Capsule 0.4 mg PO DAILY Qty: 30 RF: 0 Referrals: Mirza Crockett MD [Primary Care Provider] -
[2019-05-23 01:15] LABS: Culture Indicated Urine Specimen Cultured; RBC Urine 0-1/HPF (0-5/HPF); WBC Urine 5-10/HPF (0-5/HPF)
== END 2019-05-23 01:24 | disposition home or self-care (01) ==
PROVIDERS: Emergency Provider Emergency Medicine; Family Provider Internal Medicine; PCP Internal Medicine
DX: R33.8 Other retention of urine (principal); G47.33 Obstructive sleep apnea (adult) (pediatric)
CPT/HCPCS: 51701; 51705; 51798; 81003; 81015; 87086; 99214; 99282; 99283

== ENCOUNTER → 2019-08-21 16:12 | Outpatient (ROUT) | payer MEDICARE, BC, SELFPAY ==
[2019-05-01 04:07] VITALS: BMI 26.8
[2019-08-21 16:27] LABS: HEMOLYSIS < 15 (0-50); Iron 68 ug/dL (49-181)
[2019-08-21 16:29] LABS: BUN Creatinine Ratio 18.9 (6-22); Blood Urea Nitrogen 17 mg/dL (9-20); Calcium 9.5 mg/dL (8.4-10.2); Carbon Dioxide 26 mmol/L (22-32); Chloride 104 mmol/L (98-107); Estimated Glomerular Filt Rate > 60.0 mL/min (>60); Glucose 104 mg/dL (80-110); HEMOLYSIS < 15 (0-50); Magnesium 2.3 mg/dL (1.6-2.3); Potassium 4.4 mmol/L (3.4-5.1); Sodium 138 mmol/L (137-145)
[2019-08-21 16:34] LABS: Add Manual Diff / Slide Review NO; Basophils Absolute Auto 100 /uL (0-100); Basophils Percent Auto 0.8 % (0-2); Eosinophils Absolute Auto 300 /uL (0-450); Eosinophils Percent Auto 3.2 % (2-4); Hematocrit 39.8 % (41-53); Hemoglobin 13.8 g/dL (13.5-17.5); Lymphocytes Absolute Auto 1300 /uL (1100-4500); Mean Corpuscular HGB Conc 34.7 % (30-36); Mean Corpuscular Hemoglobin 32.6 PG (26-34); Monocytes Absolute Auto 1200 /uL (0-900); Monocytes Percent Auto 12.7 % (3-14); Neutrophils Absolute Auto 6600 /uL (1500-7000); Neutrophils Percent Auto 69.3 % (50-75); Platelet Count 296 X10^3/uL (150-400); Red Blood Cell Count 4.24 X10^6/uL (4.5-5.9); Red Cell Distribution Width 13.5 % (11.6-14.8); White Blood Cell Count 9.6 X10^3/uL (4.5-11.0)
[2019-08-21 16:38] LABS: Percent Iron Saturation 23 % (20-50); Total Iron Binding Capacity 300 ug/dL (261-462); Transferrin 241 mg/dL (206-381)
[2019-08-21 17:17] LABS: Vitamin B12 643 pg/mL (239-931)
== END ==
PROVIDERS: Family Provider Internal Medicine; PCP Internal Medicine; Visit Provider Physician Assistant
DX: N17.9 Acute kidney failure, unspecified (principal); D64.9 Anemia, unspecified; N39.0 Urinary tract infection, site not specified; A41.9 Sepsis, unspecified organism; E53.8 Deficiency of other specified B group vitamins; E83.42 Hypomagnesemia; E87.6 Hypokalemia
CPT/HCPCS: 80048; 82607; 83540; 83550; 83735; 85025

== ENCOUNTER 2019-10-23 10:18 | Day surgery (SDC) | payer MEDICARE, OTHER, SELFPAY ==
[2019-05-01 04:07] VITALS: BMI 26.8
--- NOTE | 2019-10-23 | PATH_ITS ---
[facility] Accession Number: [id number] . 01 Material submitted: . colon - ASCENDING COLON POLYP X3 . 01 Diagnosis: Ascending Colon, Polyps: Tubular adenoma x3. Additional step sections examined. V 10/25/2019 1508 Local . 01 Electronically signed: . Ashutosh Ballard MD, PhD, Pathologist NPI- [id number] . 01 Gross description: . ASCENDING COLON POLYP X3: Received in formalin are 3 fragment(s) of howell, soft tissue measuring 0.2 x 0.2 x 0.2 cm to 0.4 x 0.3 x 0.2 cm submitted entirely in 1 cassette(s) /[facility] 10/23/2019 2244 Local . 01 Pathologist provided ICD-10: D12.2 . 01 CPT . 981887 Performed at: 01 [facility] [address] [place] [address] [id number] MD Noel Todd MD Phone: [phone]
--- NOTE | 2019-10-23 08:09 | PM.HP.1 ---
History of Present Illness History of Present Illness Date Patient Seen: 10/23/19 Chief complaint: [id number] SCREENING COLONOSCOPY W/POSS BX Narrative: 69-year-old male who is here for for primary colon cancer screening. The patient states he had a colonoscopy performed 10 years ago which showed no abnormalities. There is no family history of colon cancer or colon polyps. He describes a history of ruptured diverticulitis in the 90s which was treated with segmental colon resection. Patient History Medical History (Updated 06/07/19 @ 00:00 by ) CVA (cerebral vascular accident) (Chronic) Hypertension (Chronic) Obstructive sleep apnea syndrome (Chronic) Primary insomnia (Inactive) Snoring (Inactive) Surgical History (Updated 05/23/19 @ 14:33 by NIXON Nettles) Hx of total knee arthroplasty (Inactive) S/P percutaneous patent foramen ovale closure (Chronic ~2007) S/P total knee arthroplasty (Inactive) Family & Social History Social History: household members spouse Tobacco & Substance use: Tobacco type cigars Smoking Status Current some day smoker alcohol intake current alcohol intake frequency 0-2 drinks per day Substance Use Type does not use Meds Home Medications and Allergies Home Medications Medication Instructions Recorded Confirmed Type omeprazole 20 mg PO QDAY #0 10/03/16 10/23/19 History tamsulosin [Flomax] 0.4 mg PO DAILY #30 cap 05/02/19 05/23/19 Rx Resmed Airsense 10 CPAP #1 ea 05/23/19 05/23/19 History Allergies Allergy/AdvReac Type Severity Reaction Status Date / Time levofloxacin [From LEVAQUIN] Allergy Mild RASH Verified 05/23/19 13:43 hydroxyzine [From VISTARIL] AdvReac Intermediate LOOPY Verified 05/23/19 13:43 Exam Narrative Exam Narrative: General: Patient is well developed, not in apparent distress Cardiovascular: Regular rate and rhythm, no murmurs, rubs, or gallops; no evidence of edema; no palpable abdominal aortic aneurysm Gastrointestinal: Normoactive bowel sounds, soft, nontender, nondistended, no rebound tenderness, no hepatosplenomegaly, no evidence of hernia Assessment & Plan Assessment & Plan narrative: 69-year-old male who is here for colon cancer screening Regarding the procedure(s), the risks and potential complications, benefits, and alternatives (including not doing the procedure) were discussed with the patient. The risks include but are not limited to bleeding, splenic injury, infection, perforation which may require surgical intervention, missed lesions, and adverse reactions to sedative medicines. After a question and answer period, the patient agreed to proceed with the procedure(s) and gives informed consent.
[2019-10-23 10:43] VITALS: BP 143/83; PULSE 72; RESP 15; TEMP 36.8; O2SAT 96; BMI 25.5
--- NOTE | 2019-10-23 11:03 | PM.OP.ENDO ---
Operative Date/Time/Diagnoses Date of procedure: 10/23/19 Procedure Notes Procedure in detail: Surgeon: Elijah Griffith MD Procedure: Colonoscopy with snare and forceps polypectomy Preoperative diagnosis: Colon cancer screening, average risk Postoperative diagnosis: Colon polyps x3 status post polypectomy; colocolonic anastomosis; grade 2 internal hemorrhoids Medications: Conscious sedation using 4 mg IV of Midazolam and 100 mcg IV of Fentanyl Preanesthesia Assessment An H and P was performed/updated and the Px?s ASA class is 2. The procedure was discussed in detail with the patient. The potential risks and complications including infection, bleeding, missed lesions, perforation, need for surgery in case of perforation, prolonged hospital stay, and were explained. A brief question and answer period was allotted and once all questions were answered, informed consent was obtained. The patient was brought back to the procedure room and placed on standard monitoring. The patient?s vital signs were monitored continuously throughout the entire procedure. Prior to starting, a timeout was performed to confirm the patient?s identity, allergies, medications, and procedure. Procedure in detail The patient was placed in left lateral decubitus position and once adequate sedation was obtained a MARCO ANTONIO was performed. The digital rectal examination did not reveal any palpable lesions. The tip of the colonoscope was placed in the anal canal and advanced without difficulty all the way to the cecum which was identified by the appendiceal orifice and the ileocecal valve. Careful examination of all alcantar of the colon was performed with irrigation of any residual stool. In the ascending colon, there was note of 2 sessile polyps measuring 2-3 mm which were removed by means of cold Jumbo forceps. Resection and retrieval was complete with minimal bleeding In the ascending colon, there was note of a 5 mm sessile polyp which was removed by means of a cold snare. Resection and retrieval was complete with minimal bleeding. There was note of scattered diverticula in the descending colon and sigmoid colon At 10 cm from the anal verge there was note of a healthy-appearing end to end colocolonic anastomosis Retroflexion was performed in the rectum which revealed grade 2 internal hemorrhoids The patient tolerated the procedure well and will be brought back to the recovery area to be discharged once criteria are met. The prep was judged to be good and adequate to identify polyps less than 5 mm. The withdrawal time was 9 minutes. The total physician intraservice time was 14 minutes. Complications There were no complications and estimated blood loss was minimal. Recommendations: Resume previous diet Continue outPx medications Follow up pathology results Repeat colonoscopy in 3 or 5 years depending on pathology results An emergency contact number was given to the patient for any complications related to the procedure
[2019-10-23] MEDS: fentaNYL 250 MCG/5 ML INJ IV (11:28)
[2019-10-23] MEDS: MIDAZOLAM 5 MG/5 ML VIAL IV (11:29)
[2019-10-23 11:32] VITALS: BP 139/94; PULSE 70; RESP 16; TEMP 36.4; O2SAT 98
[2019-10-23 11:35] VITALS: BP 125/86; PULSE 61; RESP 16; TEMP 36.4; O2SAT 98
== END 2019-10-23 12:01 | disposition home or self-care (01) ==
PROVIDERS: Family Provider Internal Medicine; PCP Internal Medicine; Visit Provider Internal Medicine Gastroenterology
PROC: 0DJD8ZZ Inspection of Lower Intestinal Tract, Via Natural or Artificial Opening Endoscopic (ICD-10-PCS; CPT 45378; principal; 2019-10-23 11:30)
DX: Z12.11 Encounter for screening for malignant neoplasm of colon (principal); F17.210 Nicotine dependence, cigarettes, uncomplicated; I10 Essential (primary) hypertension; G47.33 Obstructive sleep apnea (adult) (pediatric); Z86.73 Personal history of transient ischemic attack (TIA), and cerebral infarction without residual deficits; K64.1 Second degree hemorrhoids; D12.2 Benign neoplasm of ascending colon
CPT/HCPCS: 45385; 45380; J2250; J3010

== ENCOUNTER → 2020-06-10 10:22 | Outpatient (CLI) | payer MEDICARE, OTHER, SELFPAY ==
[2019-05-01 04:07] VITALS: BMI 26.8
[2020-06-11 08:52] LABS: COVID19 Sendout Not Detected (Not Detect)
== END ==
PROVIDERS: Family Provider Internal Medicine; PCP Internal Medicine; Visit Provider Physician Assistant
DX: Z11.59 Encounter for screening for other viral diseases (principal)
CPT/HCPCS: 87635

== ENCOUNTER → 2021-06-07 09:34 | Outpatient (CLI) | payer MEDICARE, OTHER, SELFPAY ==
[2019-05-01 04:07] VITALS: BMI 26.8
[2021-06-10 17:36] LABS: Lactoferrin, Fecal Quant 2.94 ug/mL(g) (0.00-7.24)
== END ==
PROVIDERS: Family Provider Internal Medicine; PCP Internal Medicine; Referring Provider Internal Medicine; Visit Provider Internal Medicine
DX: R19.7 Diarrhea, unspecified (principal)
CPT/HCPCS: 83631; 87045; 87493; 87899

== ENCOUNTER → 2021-11-10 15:44 | Outpatient (CLI) | payer MEDICARE, OTHER, SELFPAY ==
[2019-05-01 04:07] VITALS: BMI 26.8
[2021-11-10 17:10] LABS: BUN Creatinine Ratio 22.2 (6-22); Blood Urea Nitrogen 22 mg/dL (9-20); Estimated Glomerular Filt Rate > 60.0 mL/min (>60)
== END ==
PROVIDERS: Family Provider Internal Medicine; PCP Internal Medicine; Referring Provider Urology; Visit Provider Urology
DX: R31.0 Gross hematuria (principal)
CPT/HCPCS: 36415; 82565; 84520

== ENCOUNTER → 2021-11-16 14:05 | Outpatient (CLI) | payer MEDICARE, OTHER, SELFPAY ==
[2019-05-01 04:07] VITALS: BMI 26.8
--- NOTE | 2021-11-16 | DI.CT.S_ITS ---
PROCEDURE: CT ABDOMEN PELVIS WO/W CON INDICATIONS: Hematuria TECHNIQUE: After the administration of oral contrast, 5 mm thick sections acquired from the diaphragms to the iliac crests. After the administration of intravenous contrast, 5 mm thick sections acquired from the diaphragms to the symphysis. 5 mm thick coronal and sagittal reformats were acquired. For radiation dose reduction, the following was used: automated exposure control, adjustment of mA and/or kV according to patient size. COMPARISON: [facility], CT, CT KIDNEY URETER BLADDER (KUB), 04/30/2019, 22:56. FINDINGS: Image quality: Excellent. ABDOMEN: Lung bases: Lung bases are clear. Heart size is normal. Hiatal hernia contains fat, similar prior Solid organs: Liver again shows a multiple cysts of varying size with mural calcification involving a left hepatic cyst, similar prior exam. Gallbladder is unremarkable. Spleen, adrenal glands and pancreas unremarkable other than mild bilateral adrenal hypertrophy, similar prior. Both kidneys also contained cysts of varying size, similar prior exam. Hydronephrosis, however, has resolved compared to the prior. No calculi present. Bowel and peritoneum: Stomach, small and large bowel loops are normal in caliber and wall thickness. No free fluid or air. Moderate fecal debris in the colon without obstruction. Rectal and small bowel anastomotic suture ring intact. Nodes and vessels: No retroperitoneal or mesenteric adenopathy by size criteria. Aorta and inferior vena are normal in caliber. Miscellaneous: No ventral hernias. PELVIS: Genitourinary: Bladder is again distended with significant trabeculations. Prostate is enlarged also similar prior Miscellaneous: No inguinal hernias or adenopathy. Bones: No suspicious bony lesions. No vertebral body compression fractures. IMPRESSION: 1. Bilateral hydronephrosis has resolved in the interval. 2. Prostatic hypertrophy and bladder distension with bladder wall trabeculations consistent with sequelae of chronic bladder outlet obstruction, stable from the prior. 3. 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 on 11/16/2021 at 16:59
== END ==
PROVIDERS: Family Provider Internal Medicine; PCP Internal Medicine; Referring Provider Urology; Visit Provider Urology
DX: R31.0 Gross hematuria (principal); N32.89 Other specified disorders of bladder; N40.0 Benign prostatic hyperplasia without lower urinary tract symptoms; N20.0 Calculus of kidney; K76.89 Other specified diseases of liver
CPT/HCPCS: 74178

== ENCOUNTER → 2021-12-29 09:06 | Outpatient (CLI) | payer MEDICARE, OTHER, SELFPAY ==
[2019-05-01 04:07] VITALS: BMI 26.8
--- NOTE | 2021-12-29 | DI.US.S_ITS ---
PROCEDURE: US ABD AORTA ANEURYSM SCREEN INDICATIONS: AAA SCREEN TECHNIQUE: Real time scanning was performed of the aorta and iliac arteries, with image documentation. COMPARISON: None. FINDINGS: Aorta: Proximal aorta is not seen. Mid-aorta measures 1.8 cm. Distal aortic diameter is 1.6 cm. Iliac arteries: Right common iliac artery measures 1.3 cm. Left common iliac artery measures 1.1 cm. IMPRESSION: No evidence of abdominal aortic aneurysm. Dictated by: Carlos Tyler M.D. on 12/29/2021 at 11:23 Approved by: Carlos Tyler M.D. on 12/29/2021 at 11:24
== END ==
PROVIDERS: Family Provider Internal Medicine; PCP Internal Medicine; Referring Provider Internal Medicine; Visit Provider Internal Medicine
DX: Z13.6 Encounter for screening for cardiovascular disorders (principal)
CPT/HCPCS: 76706

== ENCOUNTER → 2022-03-17 11:05 | Outpatient (CLI) | payer MEDICARE, OTHER, SELFPAY ==
[2019-05-01 04:07] VITALS: BMI 26.8
[2022-03-17 11:55] LABS: Add Manual Diff / Slide Review NO; Basophils Absolute Auto 0 /uL (0-100); Basophils Percent Auto 0.5 % (0-2); Eosinophils Absolute Auto 100 /uL (0-450); Eosinophils Percent Auto 1.8 % (2-4); Hematocrit 40.3 % (41-53); Hemoglobin 13.6 g/dL (13.5-17.5); Lymphocytes Absolute Auto 900 /uL (1100-4500); Lymphocytes Percent Auto 23.6 % (25-40); Mean Corpuscular HGB Conc 33.8 % (30-36); Mean Corpuscular Hemoglobin 31.9 PG (26-34); Mean Corpuscular Volume 94.5 fL (80-100); Monocytes Absolute Auto 400 /uL (0-900); Monocytes Percent Auto 9.8 % (3-14); Neutrophils Absolute Auto 2500 /uL (1500-7000); Neutrophils Percent Auto 64.3 % (50-75); Platelet Count 168 X10^3/uL (150-400); Red Blood Cell Count 4.27 X10^6/uL (4.5-5.9); Red Cell Distribution Width 13.5 % (11.6-14.8); White Blood Cell Count 3.9 X10^3/uL (4.5-11.0)
[2022-03-17 12:30] LABS: Erythrocyte Sedimentation Rate 6 MM/HR (0-15)
== END ==
PROVIDERS: Family Provider Internal Medicine; PCP Internal Medicine; Referring Provider Orthopaedic Surgery; Visit Provider Orthopaedic Surgery
DX: M25.561 Pain in right knee (principal); T84.84XA Pain due to internal orthopedic prosthetic devices, implants and grafts, initial encounter
CPT/HCPCS: 36415; 85025; 85651; 86140

== ENCOUNTER → 2022-04-04 11:48 | Outpatient (CLI) | payer MEDICARE, OTHER, SELFPAY ==
[2019-05-01 04:07] VITALS: BMI 26.8
[2022-04-04 13:17] LABS: Alanine Aminotransferase 21 IU/L (<50); Albumin 3.7 g/dL (3.5-5.0); Albumin Globulin Ratio 1.6 (1.0-2.8); Alkaline Phosphatase 62 U/L (38-126); Aspartate Aminotransferase 24 IU/L (17-59); Bilirubin Total 0.6 mg/dL (0.2-1.3); Bilirubin Unconjugated 0.5 mg/dL (0.0-1.1); Globulin 2.3 g/dL (1.7-4.1); HEMOLYSIS < 15 (0-50)
== END ==
PROVIDERS: Family Provider Internal Medicine; PCP Internal Medicine; Referring Provider Dermatology; Visit Provider Dermatology
DX: B35.1 Tinea unguium (principal)
CPT/HCPCS: 36415; 80076

== ENCOUNTER → 2022-04-11 14:53 | Outpatient (CLI) | payer MEDICARE, OTHER, SELFPAY ==
[2019-05-01 04:07] VITALS: BMI 26.8
--- NOTE | 2022-04-11 15:04 | DI.CT.S_ITS ---
PROCEDURE: CT KNEE RIGHT WITHOUT CON INDICATIONS: pain due to internal orthopedic prosthetic device TECHNIQUE: Noncontrast 1-1.5 mm axial sections acquired from the mid-patella to the proximal tibia, with coronal and sagittal reformats. COMPARISON: [facility], CR, XR KNEE ARTHRITIC SERIES BI, 03/17/2022, 9:46. FINDINGS: Image quality: Diagnostic. Beam hardening artifacts from right knee prosthesis are seen. Bones: Patient is status post prior right total knee arthroplasty. Right knee alignment is anatomic. No gross hardware loosening or failure. No evidence of hardware malrotation. There is no fracture or dislocation. No suspicious bony lesion. Soft tissues: Moderate joint effusion is seen with thickened synovial lining concerning for synovitis. No gross intra-articular loose body. No abnormal soft tissue calcifications. Distal quadriceps tendon and patellar tendon are intact. IMPRESSION: 1. Prior right total knee arthroplasty with anatomic right knee alignment. No fracture or dislocation. No gross hardware loosening or failure. 2. Moderate joint effusion with thickened synovial lining concerning for synovitis. No abnormal soft tissue calcifications or intra-articular loose bodies. Dictated by: Allan Butler M.D. on 04/11/2022 at 17:02 Approved by: Allan Butler M.D. on 04/11/2022 at 17:04
== END ==
PROVIDERS: Family Provider Internal Medicine; PCP Internal Medicine; Referring Provider Orthopaedic Surgery; Visit Provider Orthopaedic Surgery
DX: T84.84XA Pain due to internal orthopedic prosthetic devices, implants and grafts, initial encounter (principal); M25.461 Effusion, right knee; Z96.651 Presence of right artificial knee joint
CPT/HCPCS: 73700

== ENCOUNTER 2022-06-10 21:49 | Emergency (ER) | payer MEDICARE, OTHER, SELFPAY ==
[2019-05-01 04:07] VITALS: BMI 26.8
[2022-06-10 22:02] VITALS: BP 143/89; PULSE 69; RESP 16; TEMP 36.4; O2SAT 96; BMI 27.1
--- NOTE | 2022-06-10 22:14 | DI.RAD.S_ITS ---
PROCEDURE: XR KNEE RT 3V INDICATIONS: fall TECHNIQUE: 3 views of the knee were acquired. COMPARISON: [facility] ZACHARY Perez, KNEE SERIES RT, 05/05/2017, 14:28. FINDINGS: Bones: No fractures or dislocations. A right knee prosthesis is redemonstrated. No definite new suspicious periprosthetic lucencies. There is moderate lateral tilt of the patella which appears slightly increased from the prior study. No suspicious bony lesions. Soft tissues: There is a moderate joint effusion. No suspicious soft tissue calcifications. IMPRESSION: 1. No fracture or dislocation. 2. No definite evidence of hardware loosening or infection. 3. Moderate joint effusion. Dictated by: Noel aCllaway M.D. on 06/11/2022 at 0:05 Approved by: Noel Callaway M.D. on 06/11/2022 at 0:07
--- NOTE | 2022-06-10 22:14 | DI.RAD.S_ITS ---
PROCEDURE: XR KNEE LT 3V INDICATIONS: fall TECHNIQUE: 3 views of the knee were acquired. COMPARISON: [facility], , KNEE 1-2 VIEWS LEFT, 02/09/2017, 11:41. FINDINGS: Bones: No fractures or dislocations. There is a left knee prosthesis redemonstrated. No definite new suspicious periprosthetic lucencies. There is a moderate lateral tilt of the patella No suspicious bony lesions. Soft tissues: There is a small joint effusion. No suspicious soft tissue calcifications. IMPRESSION: 1. No fractures or dislocation. 2. No definite periprosthetic lucencies to suggest loosening or infection. 3. Small joint effusion. Dictated by: Noel Callaway M.D. on 06/11/2022 at 0:04 Approved by: Noel Callaway M.D. on 06/11/2022 at 0:05
[2022-06-10] MEDS: ACETAMINOPHEN 325 MG TABLET 975 MG PO (22:44)
[2022-06-10] MEDS: TRAMADOL 50 MG TABLET PO (22:44)
--- NOTE | 2022-06-10 23:38 | DI.RAD.S_ITS ---
PROCEDURE: XR WRIST RT MIN 3V INDICATIONS: Fall, Swelling TECHNIQUE: 4 views of the wrist were acquired. COMPARISON: None. FINDINGS: Bones: There is deformity of the scaphoid suggesting sequelae of a prior fracture, with an adjacent fracture fragment along the ulnar aspect of the scaphoid. There is associated widening of the scapholunate interval. Mild to moderate degeneration demonstrated within the carpus and at the 1st carpometacarpal joint. There is moderate to severe degeneration at the radiocarpal joint. Scaphoid view: There is deformity of the scaphoid consistent with sequelae of a prior fracture. There is a small ossicle along the ulnar aspect of the scaphoid which may represent the distal fracture fragment. Soft tissues: No suspicious soft tissue calcifications. IMPRESSION: 1. No definite acute displaced fracture or dislocation. 2. 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 Dictated by: Noel Callaway M.D. on 06/11/2022 at 1:15 Approved by: Noel Callaway M.D. on 06/11/2022 at 1:19
--- NOTE | 2022-06-11 02:44 | ED.FALL ---
HPI - Fall General Chief Complaint: Fall Stated Complaint: Fell and hurt lip and knee Time Seen by Provider: 06/10/22 22:14 Source: patient Mode of arrival: Wheelchair History of Present Illness HPI Narrative: 71-year-old gentleman with a history of bilateral knee replacements, BPH, reflux was out hiking today stumbled fell forward landing on both knees and his left wrist also hit his lower lip. There is no dental injury no jaw pain. He was able to get up and get back to the car is complaining of increasing pain in both knees with walking and notices more swelling in the left knee. Was a minor abrasion to the base of the left hand. He reports no recent fever, cough, chills, chest pain, palpitations, dyspnea, orthopnea, lower extremity edema. Related Data Home Medications Medication Instructions Recorded Confirmed omeprazole 20 mg capsule,delayed 20 mg PO QDAY ##0 10/03/16 10/23/19 release Resmed Airsense 10 CPAP #1 ea 05/23/19 05/23/19 gabapentin 300 mg capsule 300 mg PO DAILY 05/21/20 05/21/20 tamsulosin 0.4 mg capsule (Flomax) 0.8 mg PO DAILY 11/12/20 Allergies Allergy/AdvReac Type Severity Reaction Status Date / Time levofloxacin [From LEVAQUIN] Allergy Mild RASH Verified 06/10/20 12:38 hydroxyzine [From VISTARIL] AdvReac Intermediate LOOPY Verified 06/10/20 12:38 Review of Systems Review of Systems Narrative: Remainder of complete review of systems is otherwise unremarkable except for that included in the HPI. Patient History Medical History CVA (cerebral vascular accident) GERD (gastroesophageal reflux disease) Hypertension Kidney stones Obstructive sleep apnea syndrome Primary insomnia Snoring Surgical History Hx of total knee arthroplasty S/P percutaneous patent foramen ovale closure (~2007) S/P total knee arthroplasty Family History Grandfather Stroke Sister PFO (patent foramen ovale) Social History household members: spouse Smoking Status: Former smoker alcohol intake: current Smoking Status: Former smoker alcohol intake frequency: 0-2 drinks per day Substance Use Type: does not use Exam Initial Vital Signs Initial Vital Signs: Vital Signs Temperature 97.6 F 06/10/22 22:02 Pulse Rate 69 06/10/22 22:02 Respiratory Rate 16 06/10/22 22:02 Blood Pressure 143/89 H 06/10/22 22:02 Pulse Oximetry 96 06/10/22 22:02 Oxygen Delivery Method 06/10/22 22:02 General: Alert appropriate in no acute distress HEENT: Minor abrasion to the lower lip without any dental injury. There is no tenderness with closing his jaw and jaw joint pain Respiratory: Able to speak in full sentences, no obvious respiratory distress Skin: No obvious rashes, warm and dry Neurologic: Grossly intact no obvious asymmetries or abnormalities Psych: appropriate insight and affect, cooperative Extremity: Left wrist with minor tenderness but neurovascularly intact. No gross bony deformity. Both knees are examined. Left knee with moderate effusion, minor abrasion, able to extend to 180? and to flex to approximately 90. Right knee with mild effusion, mild abrasion slightly improved range of motion overall. Neurovascularly intact bilaterally. Course Orders Ordered: ED Orders 06/10/22 22:14 XR knee LT 3V Stat XR knee RT 3V Stat 06/10/22 23:38 XR wrist RT min 3V Stat Discontinued Medications Acetaminophen (Acetaminophen 325 Mg Tablet) 975 mg PO NOW ONE Stop: 06/10/22 22:15 Last Admin: 06/10/22 22:44 Dose: 975 mg Documented By: BHAVIN Tramadol HCl (Tramadol 50 Mg Tablet) 50 mg PO NOW ONE Stop: 06/10/22 22:15 Last Admin: 06/10/22 22:44 Dose: 50 mg Documented By: BHAVIN Vital Signs Vital signs: Vital Signs - 8 hr 06/10/22 22:02 Temperature 97.6 F Pulse Rate 69 Respiratory Rate 16 Blood Pressure 143/89 H Pulse Oximetry 96 Oxygen Delivery Method Room Air MDM - Fall Imaging Data X-ray wrist: Radiologist's Impression: FINDINGS:? ? Bones:? There is deformity of the scaphoid suggesting sequelae of a prior fracture, with an adjacent fracture fragment along the ulnar aspect of the scaphoid.? There is associated widening of the scapholunate interval.? Mild to moderate degeneration demonstrated within the carpus and at the 1st carpometacarpal joint.? There is moderate to severe degeneration at the radiocarpal joint.? ? Scaphoid view:? There is deformity of the scaphoid consistent with sequelae of a prior fracture.? There is a small ossicle along the ulnar aspect of the scaphoid which may represent the distal fracture fragment. ? Soft tissues:? No suspicious soft tissue calcifications.? ? IMPRESSION:? ? 1. No definite acute displaced fracture or dislocation. ? 2. 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 ? ? Dictated by: Noel Callaway M.D. on 06/11/2022 at 1:15 ? ? Xray knee: My Impression: Left side Radiologist's Impression: FINDINGS:? ? Bones:? No fractures or dislocations.? There is a left knee prosthesis redemonstrated.? No definite new suspicious periprosthetic lucencies.? There is a moderate lateral tilt of the patella No suspicious bony lesions.? ? Soft tissues:? There is a small joint effusion.? No suspicious soft tissue calcifications.? ? IMPRESSION:? ? 1. No fractures or dislocation. ? 2. No definite periprosthetic lucencies to suggest loosening or infection. ? 3. Small joint effusion.? ? Dictated by: Noel Callaway M.D. on 06/11/2022 at 0:04 ? ? XR right knee: Radiologist's Impression: FINDINGS:? ? Bones:? No fractures or dislocations.? A right knee prosthesis is redemonstrated.? No definite new suspicious periprosthetic lucencies.? There is moderate lateral tilt of the patella which appears slightly increased from the prior study.? No suspicious bony lesions.? ? Soft tissues:? There is a moderate joint effusion.? No suspicious soft tissue calcifications.? ? IMPRESSION:? ? 1. No fracture or dislocation. ? 2. No definite evidence of hardware loosening or infection.? ? 3. Moderate joint effusion.? ? ? Dictated by: Noel Callaway M.D. on 06/11/2022 at 0:05 ? ? MDM Narrative Medical decision making narrative: 71-year-old gentleman who was hiking earlier today fell forward minor abrasion to the his lower lip with no dental injury, sprain to the left wrist with no bony injury. Landed on both knees both been replaced no problems with the prostheses he is a bit tender has minor effusions bilaterally left greater than right. Had been frustrated that he did not have complete range of motion back after knee replacements and had been working with physical therapy. Encouraged him to continue with physical therapy and if he feels that he is having increasing issues he will need to follow up again with his orthopedic surgeon. There is no other injuries identified and he is safe for home discharge. Discharge Plan Departure Patient Disposition: Home Clinical Impression: Sprain of both knees Fall Qualifiers: Encounter type: initial encounter Qualified Code(s): W19.XXXA - Unspecified fall, initial encounter Sprain of wrist, right Qualifiers: Encounter type: initial encounter Qualified Code(s): S63.501A - Unspecified sprain of right wrist, initial encounter Instructions: DI for Knee Sprain Activity Restrictions/Additional Instructions: Thank you for coming in today Fortunately you did not break anything or damage your knee prostheses with your fall today. You are going to be sore in you clearly did sprain your wrist in both knees. If you are feeling unsteady or feeling that your knee is actually going to give out you need to make sure that you are using an immobilizer and a cane, crutches or walker. I would encourage you to continue with physical therapy and if you find that you are not improving by the end of next week following up with Dr. Zeng would be very appropriate. I wish you the best Prescriptions: No Action omeprazole 20 MG capsule,delayed release(DR/EC) 20 mg PO QDAY Qty: 0 (DME) Resmed Airsense 10 CPAP Qty: 1 Label Comments: Pressure: 6-12 cmH2O DME: Rx Instructions: As directed gabapentin 300 mg capsule 300 mg PO DAILY tamsulosin [Flomax] 0.4 mg capsule 0.8 mg PO DAILY Referrals: Albert Hopper MD [Primary Care Provider] -
[2022-06-11 03:32] VITALS: BP 144/78; PULSE 80; RESP 19
== END 2022-06-11 03:34 | disposition home or self-care (01) ==
PROVIDERS: Emergency Provider Emergency Medicine; Family Provider Internal Medicine; PCP Internal Medicine
DX: S83.92XA Sprain of unspecified site of left knee, initial encounter (principal); S83.91XA Sprain of unspecified site of right knee, initial encounter; S63.501A Unspecified sprain of right wrist, initial encounter; W19.XXXA Unspecified fall, initial encounter
CPT/HCPCS: 73110; 73562; 99283; 99284

== ENCOUNTER → 2023-06-30 07:58 | Outpatient (CLI) | payer MEDICARE, OTHER, SELFPAY ==
[2019-05-01 04:07] VITALS: BMI 26.8
[2023-06-30 09:07] LABS: Alanine Aminotransferase 19 IU/L (<50); Albumin 3.7 g/dL (3.5-5.0); Albumin Globulin Ratio 1.7 (1.0-2.8); Alkaline Phosphatase 49 U/L (38-126); Aspartate Aminotransferase 19 IU/L (17-59); BUN Creatinine Ratio 17.2 (6-22); Bilirubin Total 0.5 mg/dL (0.2-1.3); Blood Urea Nitrogen 15 mg/dL (9-20); Calcium 9.3 mg/dL (8.4-10.2); Carbon Dioxide 25 mmol/L (22-32); Chloride 106 mmol/L (98-107); Cholesterol 167 mg/dL (140-199); Estimated Glomerular Filt Rate > 60 mL/min (>60); Globulin 2.2 g/dL (1.7-4.1); Glucose 101 mg/dL (80-110); HDL Cholesterol 55 mg/dL (40-60); HEMOLYSIS < 15 (0-50); LDL Cholesterol Calculated 89 mg/dL (<100); Potassium 4.1 mmol/L (3.4-5.1); Sodium 137 mmol/L (137-145); Total Protein 5.9 g/dL (6.3-8.2); Triglycerides 113 mg/dL (35-150)
== END ==
PROVIDERS: Family Provider Internal Medicine; PCP Student in an Organized Health Care Education/Training Program
DX: I10 Essential (primary) hypertension (principal)
CPT/HCPCS: 36415; 80053; 80061

== ENCOUNTER 2023-10-17 07:10 | Day surgery (SDC) | payer MEDICARE, OTHER, SELFPAY ==
[2019-05-01 04:07] VITALS: BMI 26.8
--- NOTE | 2023-10-17 | PATH_ITS ---
[facility] Accession Number: [id number] No. of containers..01 Tissue . 01 Material submitted: . colon - CECAL POLYP . 01 Diagnosis: Cecum, Polyp x1: Tubular adenoma. MRV 10/20/2023 1359 Local . 01 Electronically signed: . Stephie Shen MD, Pathologist NPI- [id number] . 01 Gross description: . CECAL POLYP: Received in formalin are 2 fragment(s) of howell, soft tissue measuring 0.2 x 0.2 x 0.2 cm to 0.3 x 0.2 x 0.2 cm submitted entirely in 1 cassette(s) /OUMAR 10/18/2023 1835 Local . 01 Pathologist provided ICD-10: D12.0 . 01 CPT . 408907 Specimen Comment: A courtesy copy of this report has been sent to [phone] Performed at: 01 [facility] [address] [place] [address], [place], [place] [id number] MD Noel Todd MD Phone: [phone]
[2023-10-17 07:34] VITALS: BP 156/92; PULSE 65; RESP 24; TEMP 36; O2SAT 96
[2023-10-17] MEDS: LACTATED RINGERS 1,000 ML 42 ML IV (07:34)
--- NOTE | 2023-10-17 07:58 | P.HP_ITS ---
History of Present Illness History of Present Illness Date Patient Seen: 10/17/23 Time Patient Seen: 07:58 Chief complaint: Screening Colonoscopy Narrative: 73-year-old man personal history of colonic polyps here for screening colonoscopy. No abdominal concerns today. Last colonoscopy 5 years ago. No family history of intestinal malignancy. 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 [facility] Medical History CVA (cerebral vascular accident) GERD (gastroesophageal reflux disease) Hypertension Kidney stones Obstructive sleep apnea syndrome Primary insomnia Snoring Surgical History Hx of total knee arthroplasty S/P percutaneous patent foramen ovale closure (~2007) S/P total knee arthroplasty Family History Grandfather Stroke Sister PFO (patent foramen ovale) Social History household members: spouse Smoking Status: Former smoker alcohol intake: current Meds Home Medications and Allergies Home Medications Medication Instructions Recorded Confirmed Type Resmed Airsense 10 CPAP #1 ea 05/23/19 08/03/23 History tamsulosin 0.4 mg capsule (Flomax) 0.8 mg PO DAILY 11/12/20 10/17/23 History acetaminophen 650 mg 1,300 mg PO Q12H 08/10/22 10/17/23 History tablet,extended release (Tylenol Arthritis Pain) cholecalciferol (vitamin D3) 125 125 mcg PO DAILY 06/29/23 08/03/23 History mcg (5,000 unit) capsule finasteride 5 mg tablet 5 mg PO DAILY 06/29/23 10/17/23 History loratadine 10 mg tablet 10 mg PO DAILY 06/29/23 08/03/23 History gabapentin 300 mg capsule See Rx Instructions PO DAILY #270 09/19/23 10/17/23 Rx caps Allergies Allergy/AdvReac Type Severity Reaction Status Date / Time levofloxacin [From LEVAQUIN] Allergy Mild RASH Verified 10/17/23 07:22 Exam Vital Signs (past 8 hours): - 10/17/23 07:34 Temperature 96.8 F L Pulse Rate 65 Respiratory Rate 24 Blood Pressure 156/92 H Pulse Oximetry 96 Oxygen Delivery Method Room Air Oxygen Delivery Method Room Air Narrative Exam Narrative: General adult man alert oriented no acute distress Chest nonlabored respiration Extremities warm well perfused Assessment & Plan Assessment & Plan narrative: The patient requires colorectal screening and colonoscopy is recommended. Technical details were discussed. Risks, benefits, alternatives explained. Risks including but not limited to myocardial infarction, aspiration, bleeding, pain, missed lesion, incomplete examination, need for further radiographic studies, colonic perforation, and need for major abdominal surgery were discussed. All questions were answered to their satisfaction, and they are in agreement with this plan.
--- NOTE | 2023-10-17 08:00 | P.OP.COLON_ITS ---
Operative Date/Time/Diagnoses Date of procedure: 10/17/23 Time of procedure: 08:00 Pre-op diagnosis: Personal history of colonic polyps Post-op diagnosis: other (Colonic polyp x1) Procedure & Clinicians Study performed: Colonoscopy and polypectomy Same procedure as scheduled: Yes Indications: Personal history of colonic polyps Colorectal screening Surgeon: Dany Armendariz Procedure Notes Procedure in detail: The history and physical was performed/updated and the patient is ASA class is 2. The procedure was discussed in detail with the patient. Potential risks complications including infection, bleeding, missed diagnosis, perforation, need for surgery, and were explained. Their questions were answered and informed consent was obtained. Patient was brought to the procedure room and placed standard monitoring equipment. The patient's vital signs were monitored continuously throughout the entire procedure. Prior to starting time-out was performed. The patient was placed in the left lateral recumbent position. Procedural sedation was administered by anesthesia. Examination began with a thorough inspection of the perianal area there was no evidence of fissures, fistulae, external hemorrhoids or cutaneous malignancy. The colonoscopy scope was then placed into the anal canal and was advanced to the cecum, which was identified by the ileocecal valve, the appendiceal orifice and the confluence of the taenia. The scope was then slowly withdrawn examining colon thoroughly in all directions, irrigating it of any residual stool. The scope was retroflexed within the rectum The patient tolerated the procedure well. They will be discharged once criteria are met. The prep was of good/excellent quality. The withdrawl time was 8 minutes. FINDINGS * Cecum flat linear 5 mm in length polyp removed in pieces using biopsy forceps * Descending colon mild diverticulosis * Internal hemorrhoids Specimen(s): other (Cecal polyp) Impression: Colonic polyp x1 Post-procedure Recommendations: High fiber diet Plan for aftercare: Follow-up is dependent on pathology findings Disposition: same day surgery
[2023-10-17 08:26] VITALS: BP 127/72; PULSE 52; RESP 18; TEMP 36.1; O2SAT 98
[2023-10-17 08:30] VITALS: BP 124/67; PULSE 44; RESP 14; O2SAT 98
--- NOTE | 2023-10-17 08:32 | PM.OP.EC ---
Operative Date/Time/Diagnoses Date of procedure: 10/17/23 Time of procedure: 08:32 Pre-op diagnosis: Colorectal screening Esophageal dysphagia Procedure & Clinicians Study performed: Diagnostic esophagoduodenoscopy and screening colonoscopy Same procedure as scheduled: Yes Indications: Esophageal dysphagia. Colorectal screening Surgeon: Dany Armendariz Procedure Notes Procedure in detail: The history and physical was performed/updated and the patient is ASA class is 2. The procedure was discussed in detail with the patient. Potential risks complications including infection, bleeding, missed diagnosis, perforation, need for surgery, and were explained. Their questions were answered and informed consent was obtained. Patient placed in left lateral decubitus position. Time out was performed. Procedural sedation was administered by Anesthesia. A bite block was placed. the scope was inserted into the mouth and advanced through the esophagus and into the stomach. the pylorus was intubated and the duodenum was examined to the 2nd portion.. The scope was retroflexed within the stomach. The stomach was then decompressed and scope pulled back to the GE junction. The scope was then removed Examination began with a thorough inspection of the perianal area there was no evidence of fissures, fistulae, external hemorrhoids or cutaneous malignancy. The colonoscopy scope was then placed into the anal canal and was advanced to the cecum, which was identified by the ileocecal valve, the appendiceal orifice and the confluence of the taenia. The scope was then slowly withdrawn examining colon thoroughly in all directions, irrigating it of any residual stool. FINDINGS ? The patient tolerated the procedure well. They will be discharged once criteria are met. The prep was of good/excellent quality. The withdrawl time was * minutes. Post-procedure Disposition: same day surgery
[2023-10-17 08:35] VITALS: BP 131/71; PULSE 58; RESP 12; O2SAT 97
[2023-10-17 08:44] VITALS: BP 133/76; PULSE 57; RESP 14; TEMP 36.1; O2SAT 99
== END 2023-10-17 08:56 | disposition home or self-care (01) ==
PROVIDERS: Family Provider Internal Medicine; PCP Student in an Organized Health Care Education/Training Program; Referring Provider Surgery; Visit Provider Surgery
PROC: 0DJD8ZZ Inspection of Lower Intestinal Tract, Via Natural or Artificial Opening Endoscopic (ICD-10-PCS; CPT 45378; principal; 2023-10-17 08:15)
DX: Z12.11 Encounter for screening for malignant neoplasm of colon (principal); Z86.010 Personal history of colon polyps; Z98.890 Other specified postprocedural states; K21.9 Gastro-esophageal reflux disease without esophagitis; G47.33 Obstructive sleep apnea (adult) (pediatric); K57.30 Diverticulosis of large intestine without perforation or abscess without bleeding; K64.8 Other hemorrhoids; D12.0 Benign neoplasm of cecum
CPT/HCPCS: 45380; J2704

== ENCOUNTER → 2023-11-22 16:26 | Outpatient (CLI) | payer MEDICARE, OTHER, SELFPAY ==
[2019-05-01 04:07] VITALS: BMI 26.8
--- NOTE | 2023-11-22 16:27 | DI.US.S_ITS ---
PROCEDURE: US PERIPH VENOUS LOW EXTREM RT INDICATIONS: SWELLING TECHNIQUE: Real-time imaging, as well as color and pulse Doppler interrogation, were performed of the lower extremity deep veins from the inguinal ligament to the popliteal fossa, with documentation of the visualized calf veins. COMPARISON: None. FINDINGS: The common femoral, femoral, popliteal, and the visualized calf veins are normally compressible, and free of intraluminal thrombus. Color and pulse Doppler demonstrate normal phasic intraluminal flow. There is normal augmentation response to distal compression maneuver. Gabriel's cyst measuring 5.8 x 5.8 x 3.5 centimeters. At the palpable region of concern, there is a hypoechoic fluid collection containing thin internal septations measuring 4.4 x 3.9 x 2.5 centimeters. IMPRESSION: No findings of lower extremity deep venous thrombosis. Soft tissue hematoma along the proximal/medial calf. Dictated by: Santosh Colmenares M.D. on 11/22/2023 at 17:09 Approved by: Santosh Colmenares M.D. on 11/22/2023 at 17:10
== END ==
PROVIDERS: Family Provider Internal Medicine; PCP Student in an Organized Health Care Education/Training Program; Referring Provider Family Medicine; Visit Provider Family Medicine
DX: M79.89 Other specified soft tissue disorders (principal); M79.81 Nontraumatic hematoma of soft tissue; M71.21 Synovial cyst of popliteal space [Baker], right knee
CPT/HCPCS: 93971

== ENCOUNTER 2024-04-03 11:06 | Inpatient (IN) | payer MEDICARE, OTHER, SELFPAY ==
[2019-05-01 04:07] VITALS: BMI 26.8
[2024-04-03] VITALS (12 sets, daily range): BP systolic 110–150; BP diastolic 67–89; PULSE 59–86; RESP 16–18; TEMP 36.2–36.8; O2SAT 92–98; BMI 26.4
--- NOTE | 2024-04-03 11:22 | ED_ITS ---
HPI - Abdominal Pain General Chief Complaint: Abdominal Pain Stated Complaint: ABD PAIN T-3 Time Seen by Provider: 04/03/24 11:07 Source: patient Mode of arrival: Ambulatory History of Present Illness HPI narrative: Patient is a 73-year-old male history of diverticulitis with colon resection presenting today with abdominal cramping for the last 3 days. He denies any nausea or vomiting he says that he has not had a bowel movement he is passing very little gas. No fever or chills. No other symptoms Related Data Home Medications Medication Instructions Recorded Confirmed Resmed Airsense 10 CPAP #1 ea 05/23/19 11/22/23 tamsulosin 0.4 mg capsule (Flomax) 0.8 mg PO DAILY 11/12/20 11/22/23 acetaminophen 650 mg 1,300 mg PO Q12H 08/10/22 11/22/23 tablet,extended release (Tylenol Arthritis Pain) cholecalciferol (vitamin D3) 125 125 mcg PO DAILY 06/29/23 11/22/23 mcg (5,000 unit) capsule finasteride 5 mg tablet 5 mg PO DAILY 06/29/23 11/22/23 loratadine 10 mg tablet 10 mg PO DAILY 06/29/23 11/22/23 Previous Rx's Medication Instructions Recorded tramadol 50 mg tablet 50 mg PO BID PRN pain #30 tabs 02/26/24 gabapentin 300 mg capsule 300 mg PO .COMPLEX #270 caps 03/18/24 Allergies Allergy/AdvReac Type Severity Reaction Status Date / Time levofloxacin [From LEVAQUIN] Allergy Mild RASH Verified 11/22/23 15:39 Patient History Medical History CVA (cerebral vascular accident) GERD (gastroesophageal reflux disease) Hypertension Kidney stones Obstructive sleep apnea syndrome Primary insomnia Snoring Surgical History Hx of total knee arthroplasty S/P percutaneous patent foramen ovale closure (~2007) S/P total knee arthroplasty Family History Grandfather Stroke Sister PFO (patent foramen ovale) Social History household members: spouse Smoking Status: Former smoker alcohol intake: current Smoking Status: Former smoker alcohol intake frequency: 0-2 drinks per day Substance Use Type: does not use Exam Initial Vital Signs Initial Vital Signs: Vital Signs Temperature 98.2 F 04/03/24 11:10 Pulse Rate 73 04/03/24 11:10 Respiratory Rate 18 04/03/24 11:10 Blood Pressure 141/86 H 04/03/24 11:10 Pulse Oximetry 98 04/03/24 11:10 Oxygen Delivery Method Room Air 04/03/24 11:10 GENERAL: Alert 73-year-old male appears HEENT: Head atraumatic,EOMI, pupils reactive, face symmetric, moist mucous membranes CARDIOVASCULAR: Regular rate and rhythm without murmurs, rubs or gallops. RESPIRATORY: Breath sounds equal bilaterally, no wheezes rales or rhonchi. ABDOMEN: Soft, mild tenderness noticed significant distention no guarding or EXTREMITIES: Normal range of motion, no clubbing or edema. Neurovascularly intact NEUROLOGICAL: Alert and oriented x4.Normal gait and speech. Cranial nerves II through XII grossly intact. SKIN: Warm, dry, no laceration, no petechiae, no rashes or lesions. Course Orders Ordered: ED Orders 04/03/24 11:55 Complete Blood Count AUTO DIFF Stat Comprehensive Metabolic Panel Stat Lipase Stat Urine Culture Stat Urine Microscopic Stat 04/03/24 12:32 CT abdomen pelvis w con Stat 04/03/24 14:06 EKG-12 Lead Stat Morphine Sulfate (Morphine 2 Mg/Ml Inj) 2 mg IV Q2HR PRN PRN Reason: Pain, Moderate (4-6) Last Admin: 04/03/24 14:34 Dose: 2 mg Documented By: [facility] Ondansetron HCl (Ondansetron 4 Mg/2 Ml Inj) 4 mg IV Q6HR PRN PRN Reason: Nausea And Vomiting Discontinued Medications Morphine Sulfate (Morphine 2 Mg/Ml Inj) 2 mg IV NOW ONE Stop: 04/03/24 12:33 Last Admin: 04/03/24 12:55 Dose: 2 mg Documented By: Ondansetron HCl (Ondansetron 4 Mg/2 Ml Inj) 4 mg IV NOW ONE Stop: 04/03/24 12:33 Last Admin: 04/03/24 12:55 Dose: 4 mg Documented By: Vital Signs Vital signs: Vital Signs - 8 hr 04/03/24 11:10 04/03/24 12:51 04/03/24 12:52 Temperature 98.2 F Pulse Rate 73 68 Respiratory Rate 18 Blood Pressure 141/86 H Pulse Oximetry 98 92 98 Oxygen Delivery Method Room Air 04/03/24 12:52 04/03/24 13:06 04/03/24 13:07 Temperature Pulse Rate 65 67 Respiratory Rate Blood Pressure 150/89 H Pulse Oximetry 94 96 Oxygen Delivery Method 04/03/24 13:07 04/03/24 13:30 04/03/24 13:30 Temperature Pulse Rate 63 Respiratory Rate Blood Pressure 141/77 H 120/74 Pulse Oximetry 97 Oxygen Delivery Method 04/03/24 14:00 04/03/24 14:00 Temperature Pulse Rate 62 Respiratory Rate Blood Pressure 125/87 Pulse Oximetry 96 Oxygen Delivery Method MDM - Abdominal Pain Lab Data 04/03/24 11:55 04/03/24 11:55 Labs: Lab Results 04/03/24 Range/Units 11:55 WBC 8.9 (4.5-11.0) X10^3/uL RBC 5.06 (4.5-5.9) X10^6/uL Hgb 15.5 (13.5-17.5) g/dL Hct 46.0 (41-53) % MCV 91.0 (80-100) fL MCH 30.6 (26-34) PG MCHC 33.6 (30-36) % RDW 14.0 (11.6-14.8) % Plt Count 214 (150-400) X10^3/uL Neut % (Auto) 86.7 H (50-75) % Lymph % (Auto) 6.8 L (25-40) % [place] % (Auto) 6.1 (3-14) % Eos % (Auto) 0.2 L (2-4) % Baso % (Auto) 0.2 (0-2) % Neut # (Auto) 7700 H (3363-3028) /uL Lymph # (Auto) 600 L (4752-9215) /uL [place] # (Auto) 500 (0-900) /uL Eos # (Auto) 0 (0-450) /uL Baso # (Auto) 0 (0-100) /uL Sodium 139 (137-145) mmol/L Potassium 4.0 (3.4-5.1) mmol/L Chloride 105 (98-107) mmol/L Carbon Dioxide 28 (22-32) mmol/L BUN 17 (9-20) mg/dL Creatinine 0.77 (0.66-1.25) mg/dL Estimated GFR > 60 (>60) mL/min BUN/Creatinine Ratio 22.1 H (6-22) Glucose 123 H (80-110) mg/dL Lactate 1.0 (0.7-2.1) mmol/L Calcium 9.5 (8.4-10.2) mg/dL Total Bilirubin 0.6 (0.2-1.3) mg/dL AST 25 (17-59) IU/L ALT 22 (<50) IU/L Alkaline Phosphatase 83 (38-126) U/L Total Creatine Kinase 60 (55-170) U/L Troponin I < 0.012 (0.01-0.034) ng/mL Total Protein 7.7 (6.3-8.2) g/dL Albumin 4.6 (3.5-5.0) g/dL Globulin 3.1 (1.7-4.1) g/dL Albumin/Globulin Ratio 1.5 (1.0-2.8) Lipase 78 (23-300) U/L Urine RBC None seen (0-5/HPF) Urine WBC 5-10/hpf H (0-5/HPF) Ur Squamous Epith Cells None seen (0-5/HPF) Urine Bacteria Few (2-10) H (None) Ur Culture Indicated? Specimen cultured Vol Urine Centrifuged 10ml (spun) Point of care testing: Urine Dip Bedside Urine Glucose Negative Bedside Urine Bilirubin - Negative Bedside Urine Ketone - Negative Urine Specific [place] 1.015 Bedside Urine Occult Blood - Negative Bedside Urine pH 6.0 Bedside Urine Protein +/- 15 Bedside Urine Urobilinogen - Negative Bedside Urine Nitrite - Negative Bedside Urine Leukocytes - Negative Esterase Imaging Data CT scan - abdomen/pelvis: Radiologist's Impression: PROCEDURE: CT ABDOMEN PELVIS W CON INDICATIONS: ab pain TECHNIQUE: After the administration of intravenous contrast, axial sections acquired from the lung bases to the pubic symphysis. Coronal and sagittal reformats were performed. For radiation dose reduction, the following was used: automated exposure control, adjustment of mA and/or kV according to patient size. COMPARISON: 04/30/2019. FINDINGS: Image quality: Diagnostic. Lower Chest: Bibasilar dependent atelectasis is seen. Heart size is mildly enlarged, no pericardial effusion. ABDOMEN: Liver: No solid mass. Numerous hepatic cysts are again seen including a partially peripherally calcified left hepatic cyst measures up to 7 x 5.6 cm in size series 2, image 21 not significantly changed from prior study. Gallbladder: No radiopaque gallstones or wall thickening. Biliary ducts: No biliary dilation. Pancreas: No ductal dilation. Spleen: Size is within normal limits. Adrenal Glands: No adrenal nodules. Kidneys and Ureters: No hydronephrosis. No solid mass. Simple appearing bilateral renal cysts are again seen unchanged from prior study. No complex renal cystic lesion which requires follow up. Stomach and Bowel: Fluid distension of small bowel loops throughout abdomen with a few air-fluid levels. There is zone of transition involving distal small bowel loop in right lower quadrant series 2, image 54 and series 3, image 32. No abnormal bowel wall thickening. No mesenteric fat stranding. Appendix is not definitively identified. Postsurgical changes are seen in right lower quadrant abdomen which may indicate prior appendectomy. Peritoneum: No abnormal intraperitoneal fluid. No free air. Ventral Wall: No significant ventral hernia. Abdominal Nodes: No retroperitoneal or mesenteric adenopathy by size criteria. Vessels: Aorta and inferior vena cava are normal in size. PELVIS: Pelvic Organs: Unremarkable. Bladder: Markedly distended urinary bladder without gross bladder wall thickening or discrete bladder wall mass. Multiple bladder wall diverticuli are seen. Pelvic Nodes: No enlarged lymph nodes. Miscellaneous: No inguinal hernias are seen. Bones: No aggressive osseous abnormality. IMPRESSION: 1. Finding is suggestive of high-grade distal small-bowel obstruction with zone of transition involving terminal ileum in right lower quadrant as above. 2. Suggestion of prior appendectomy. No abnormal bowel wall thickening. No free fluid or free air. 3. Markedly distended urinary bladder with multiple bladder wall diverticuli. No discrete bladder wall mass. No obstructing renal stones or hydronephrosis. Numerous bilateral renal cysts unchanged from prior study. 4. Numerous hepatic cysts also unchanged from prior study. Dictated by: Allan Butler M.D. on 04/03/2024 at 13:45 ECG Data Attestation: I personally reviewed and interpreted this ECG as follows: Prior ECG tracings: available for review Interpretation: Normal sinus rhythm rate 61 SC interval 182 QRS 80 QTC 414 T-wave inversions noted in lead 3 and AVF without acute ST elevations similar to previous EKG in 2016 MDM Narrative Medical decision making narrative: Patient is 73-year-old male prior abdominal surgeries presenting to the abdominal cramping. No significant nausea or vomiting. But definitely decreased bowel movements decreased flatulence. Abdomen is soft not significantly tender or distended not an acute abdomen and no signs of peritonitis Blood work has been reviewed WBC 8.9 hemoglobin 15.5 hematocrit 46.6 platelets 214, sodium 139, potassium 4.0 chloride 105 carbon dioxide 28 BUN 17 creatinine 0.7 glucose 123, troponin negative, lactate 1.0 Imaging has been reviewed and does show high grade distal small bowel obstruction with a transition point in right lower quadrant Re-evaluation patient complaining of chest pressure and pain EKG was done does not show any sort of ischemia troponin and lactate were added. He continues to deny any nausea expect suspect chest pain maybe secondary to SBO. Dr. Gomes on-call surgery updated patient's symptoms test results and agrees with admission Discharge Plan Departure Patient Disposition: Admitted as Observation Clinical Impression: Complete small bowel obstruction Admit Date/Time: 04/03/24 14:06 Admit Provider: Dale Gomes
[2024-04-03 12:13] LABS: Add Manual Diff / Slide Review NO; Basophils Absolute Auto 0 /uL (0-100); Basophils Percent Auto 0.2 % (0-2); Eosinophils Absolute Auto 0 /uL (0-450); Eosinophils Percent Auto 0.2 % (2-4); Hemoglobin 15.5 g/dL (13.5-17.5); Lymphocytes Absolute Auto 600 /uL (1100-4500); Lymphocytes Percent Auto 6.8 % (25-40); Mean Corpuscular HGB Conc 33.6 % (30-36); Mean Corpuscular Hemoglobin 30.6 PG (26-34); Monocytes Absolute Auto 500 /uL (0-900); Monocytes Percent Auto 6.1 % (3-14); Neutrophils Absolute Auto 7700 /uL (1500-7000); Neutrophils Percent Auto 86.7 % (50-75); Platelet Count 214 X10^3/uL (150-400); Red Blood Cell Count 5.06 X10^6/uL (4.5-5.9); White Blood Cell Count 8.9 X10^3/uL (4.5-11.0)
[2024-04-03 12:27] LABS: Alanine Aminotransferase 22 IU/L (<50); Albumin 4.6 g/dL (3.5-5.0); Albumin Globulin Ratio 1.5 (1.0-2.8); Alkaline Phosphatase 83 U/L (38-126); Aspartate Aminotransferase 25 IU/L (17-59); BUN Creatinine Ratio 22.1 (6-22); Bilirubin Total 0.6 mg/dL (0.2-1.3); Blood Urea Nitrogen 17 mg/dL (9-20); Calcium 9.5 mg/dL (8.4-10.2); Carbon Dioxide 28 mmol/L (22-32); Chloride 105 mmol/L (98-107); Estimated Glomerular Filt Rate > 60 mL/min (>60); Globulin 3.1 g/dL (1.7-4.1); Glucose 123 mg/dL (80-110); HEMOLYSIS < 15 (0-50); Lipase 78 U/L (23-300); Sodium 139 mmol/L (137-145); Total Protein 7.7 g/dL (6.3-8.2)
--- NOTE | 2024-04-03 12:32 | DI.CT.S_ITS ---
PROCEDURE: CT ABDOMEN PELVIS W CON INDICATIONS: ab pain TECHNIQUE: After the administration of intravenous contrast, axial sections acquired from the lung bases to the pubic symphysis. Coronal and sagittal reformats were performed. For radiation dose reduction, the following was used: automated exposure control, adjustment of mA and/or kV according to patient size. COMPARISON: 04/30/2019. FINDINGS: Image quality: Diagnostic. Lower Chest: Bibasilar dependent atelectasis is seen. Heart size is mildly enlarged, no pericardial effusion. ABDOMEN: Liver: No solid mass. Numerous hepatic cysts are again seen including a partially peripherally calcified left hepatic cyst measures up to 7 x 5.6 cm in size series 2, image 21 not significantly changed from prior study. Gallbladder: No radiopaque gallstones or wall thickening. Biliary ducts: No biliary dilation. Pancreas: No ductal dilation. Spleen: Size is within normal limits. Adrenal Glands: No adrenal nodules. Kidneys and Ureters: No hydronephrosis. No solid mass. Simple appearing bilateral renal cysts are again seen unchanged from prior study. No complex renal cystic lesion which requires follow up. Stomach and Bowel: Fluid distension of small bowel loops throughout abdomen with a few air-fluid levels. There is zone of transition involving distal small bowel loop in right lower quadrant series 2, image 54 and series 3, image 32. No abnormal bowel wall thickening. No mesenteric fat stranding. Appendix is not definitively identified. Postsurgical changes are seen in right lower quadrant abdomen which may indicate prior appendectomy. Peritoneum: No abnormal intraperitoneal fluid. No free air. Ventral Wall: No significant ventral hernia. Abdominal Nodes: No retroperitoneal or mesenteric adenopathy by size criteria. Vessels: Aorta and inferior vena cava are normal in size. PELVIS: Pelvic Organs: Unremarkable. Bladder: Markedly distended urinary bladder without gross bladder wall thickening or discrete bladder wall mass. Multiple bladder wall diverticuli are seen. Pelvic Nodes: No enlarged lymph nodes. Miscellaneous: No inguinal hernias are seen. Bones: No aggressive osseous abnormality. IMPRESSION: 1. Finding is suggestive of high-grade distal small-bowel obstruction with zone of transition involving terminal ileum in right lower quadrant as above. 2. Suggestion of prior appendectomy. No abnormal bowel wall thickening. No free fluid or free air. 3. Markedly distended urinary bladder with multiple bladder wall diverticuli. No discrete bladder wall mass. No obstructing renal stones or hydronephrosis. Numerous bilateral renal cysts unchanged from prior study. 4. Numerous hepatic cysts also unchanged from prior study. Dictated by: Allan Butler M.D. on 04/03/2024 at 13:45 Approved by: Allan Butler M.D. on 04/03/2024 at 13:49
[2024-04-03] MEDS: MORPHINE 2 MG/ML INJ IV ×2 (12:55→14:34)
[2024-04-03] MEDS: ONDANSETRON 4 MG/2 ML INJ IV ×2 (12:55→17:14)
[2024-04-03 13:06] LABS: Bacteria Urine Few (2-10); Culture Indicated Urine Specimen Cultured; RBC Urine None Seen (0-5/HPF); Squamous Epithelial Cell Urine None Seen (0-5/HPF); Urine Volume 10mL (spun); WBC Urine 5-10/HPF (0-5/HPF)
--- NOTE | 2024-04-03 14:06 | EKG_ITS ---
[address] [address] Test Date: 2024-04-03 Pat Name: Richmond Jane Department: Room: 90A Gender: Male Tools Developer: FRANCISCO : 1950 Requested By: Order Number: [id number] Reading MD: Boaz Lee MD Measurements Intervals [place] Rate: 61 P: 45 IN: 182 QRS: -26 QRSD: 80 T: -7 QT: 412 QTc: 414 Interpretive Statements Normal sinus rhythm with sinus arrhythmia Minimal voltage criteria for LVH, may be normal variant ( R in aVL ) Electronically Signed On 04-04-2024 7:52:56 PDT by Boaz Lee MD
[2024-04-03 15:01] LABS: Creatine Kinase 60 U/L (55-170)
[2024-04-03 15:14] LABS: Troponin I < 0.012 ng/mL (0.01-0.034)
--- NOTE | 2024-04-03 19:07 | P.HP_ITS ---
History of Present Illness History of Present Illness Date Patient Seen: 04/03/24 Time Patient Seen: 19:08 Chief complaint: ABD PAIN T-3 Narrative: Richmond is a 73-year-old man who presented with abdominal distention and discomfort for about [address] scan was performed and demonstrated a small-bowel obstruction. He did have several abdominal surgeries in the 90s starting with a colectomy for diverticulitis with a colostomy. He then had a complication which led to an ileostomy followed by an ileostomy reversal. He has never had a bowel obstruction before. He has not had a bowel movement in several days and has had minimal flatus for the past few days. [facility] Medical History CVA (cerebral vascular accident) GERD (gastroesophageal reflux disease) Hypertension Kidney stones Obstructive sleep apnea syndrome Primary insomnia Snoring Surgical History Hx of total knee arthroplasty S/P percutaneous patent foramen ovale closure (~2007) S/P total knee arthroplasty Family History Grandfather Stroke Sister PFO (patent foramen ovale) Social History household members: spouse Smoking Status: Former smoker alcohol intake: current Meds Home Medications and Allergies Home Medications Medication Instructions Recorded Confirmed Type Resmed Airsense 10 CPAP #1 ea 05/23/19 04/03/24 History tamsulosin 0.4 mg capsule (Flomax) 0.8 mg PO DAILY 11/12/20 04/03/24 History acetaminophen 650 mg 1,300 mg PO Q12H 08/10/22 04/03/24 History tablet,extended release (Tylenol Arthritis Pain) cholecalciferol (vitamin D3) 125 125 mcg PO DAILY 06/29/23 04/03/24 History mcg (5,000 unit) capsule finasteride 5 mg tablet 5 mg PO DAILY 06/29/23 04/03/24 History loratadine 10 mg tablet 10 mg PO DAILY 06/29/23 04/03/24 History tramadol 50 mg tablet 50 mg PO BID PRN pain #30 tabs 02/26/24 04/03/24 Rx gabapentin 300 mg capsule 300 mg PO .COMPLEX #270 caps 03/18/24 04/03/24 Rx Allergies Allergy/AdvReac Type Severity Reaction Status Date / Time levofloxacin [From LEVAQUIN] Allergy Mild RASH Verified 11/22/23 15:39 Exam Vital Signs (past 8 hours): - 04/03/24 11:10 04/03/24 12:51 04/03/24 12:52 Temperature 98.2 F Pulse Rate 73 68 Respiratory Rate 18 Blood Pressure 141/86 H Pulse Oximetry 98 92 98 Oxygen Delivery Method Room Air 04/03/24 12:52 04/03/24 13:06 04/03/24 13:07 Temperature Pulse Rate 65 67 Respiratory Rate Blood Pressure 150/89 H Pulse Oximetry 94 96 Oxygen Delivery Method 04/03/24 13:07 04/03/24 13:30 04/03/24 13:30 Temperature Pulse Rate 63 Respiratory Rate Blood Pressure 141/77 H 120/74 Pulse Oximetry 97 Oxygen Delivery Method 04/03/24 14:00 04/03/24 14:00 04/03/24 14:30 Temperature Pulse Rate 62 59 L Respiratory Rate Blood Pressure 125/87 Pulse Oximetry 96 96 Oxygen Delivery Method 04/03/24 14:30 04/03/24 14:56 04/03/24 14:57 Temperature Pulse Rate 60 Respiratory Rate Blood Pressure 123/78 132/80 Pulse Oximetry 97 Oxygen Delivery Method 04/03/24 15:00 04/03/24 16:03 Temperature 97.1 F L Pulse Rate 62 Respiratory Rate 16 Blood Pressure 145/88 H Pulse Oximetry 97 Oxygen Delivery Method Room Air Oxygen Delivery Method Room Air Narrative Exam Narrative: Abdomen is soft and moderately distended without peritoneal signs There is a Pfannenstiel scar Objective Labs 04/03/24 11:55 04/03/24 11:55 Labs: Laboratory Results - last 24 hr 04/03/24 11:55 WBC 8.9 RBC 5.06 Hgb 15.5 Hct 46.0 MCV 91.0 MCH 30.6 MCHC 33.6 RDW 14.0 Plt Count 214 Neut % (Auto) 86.7 H Lymph % (Auto) 6.8 L [place] % (Auto) 6.1 Eos % (Auto) 0.2 L Baso % (Auto) 0.2 Neut # (Auto) 7700 H Lymph # (Auto) 600 L [place] # (Auto) 500 Eos # (Auto) 0 Baso # (Auto) 0 Sodium 139 Potassium 4.0 Chloride 105 Carbon Dioxide 28 BUN 17 Creatinine 0.77 Estimated GFR > 60 BUN/Creatinine Ratio 22.1 H Glucose 123 H Lactate 1.0 Calcium 9.5 Total Bilirubin 0.6 AST 25 ALT 22 Alkaline Phosphatase 83 Total Creatine Kinase 60 Troponin I < 0.012 Total Protein 7.7 Albumin 4.6 Globulin 3.1 Albumin/Globulin Ratio 1.5 Lipase 78 Urine RBC None seen Urine WBC 5-10/hpf H Ur Squamous Epith Cells None seen Urine Bacteria Few (2-10) H Ur Culture Indicated? Specimen cultured Vol Urine Centrifuged 10ml (spun) Assessment & Plan Assessment and plan (1) Complete small bowel obstruction: Status: Acute Plan He did report passage of flatus at the time of this examination. Janeth appears to have a small-bowel obstruction which may be in the process of resolving. Since he has not vomited we will refrain from placing the NG tube and wait for more flatus. If he does have more flatus tonight he can have clear liquid diet tomorrow. I told him about the possible need for an NG-tube if he starts vomiting and a possible Gastrografin challenge versus surgery. Time-Based Coding :: [TOTAL MINUTES] spent with patient and on the chart (including review of chart, obtaining history, exam, reviewing outside data, placing orders, documenting exam and treatment plan, and counseling patient) on [DATE]. Quality VTE Deep Vein Thrombosis/Pulmonary Embolism Present on Admission: No
[2024-04-03] MEDS: DEXTROSE 5%-0.45% NS 1,000 ML 100 ML IV (20:55)
[2024-04-04] VITALS (16 sets, daily range): BP systolic 116–150; BP diastolic 67–86; PULSE 65–82; RESP 12–18; TEMP 35.9–36.8; O2SAT 90–98; BMI 26.4
--- NOTE | 2024-04-04 | DI.RAD.S_ITS ---
PROCEDURE: XR GASTROGRAFIN CHALLENGE COMPARISON: None. INDICATIONS: SBO FINDINGS: Partially visualized nasogastric tube is present overlying the stomach. Dilated loops of small bowel filled with Gastrografin are present. Small amount of contrast is noted in what appears to be the proximal right colon. IMPRESSION: Dilated loops of small bowel most consistent with partial small bowel obstruction. Appearance is relatively stable. Dictated by: Enriqueta Carpenter M.D. on 04/05/2024 at 16:33 Approved by: Enriqueta Carpenter M.D. on 04/05/2024 at 16:41
[2024-04-04 06:45] LABS: Add Manual Diff / Slide Review NO; Basophils Absolute Auto 0 /uL (0-100); Basophils Percent Auto 0.3 % (0-2); Eosinophils Absolute Auto 100 /uL (0-450); Eosinophils Percent Auto 1.8 % (2-4); Hematocrit 40.8 % (41-53); Hemoglobin 13.8 g/dL (13.5-17.5); Lymphocytes Absolute Auto 900 /uL (1100-4500); Lymphocytes Percent Auto 15.8 % (25-40); Mean Corpuscular HGB Conc 33.8 % (30-36); Mean Corpuscular Hemoglobin 30.7 PG (26-34); Mean Corpuscular Volume 90.6 fL (80-100); Monocytes Absolute Auto 700 /uL (0-900); Monocytes Percent Auto 12.2 % (3-14); Neutrophils Absolute Auto 4000 /uL (1500-7000); Neutrophils Percent Auto 69.9 % (50-75); Platelet Count 189 X10^3/uL (150-400); Red Cell Distribution Width 13.9 % (11.6-14.8); White Blood Cell Count 5.7 X10^3/uL (4.5-11.0)
[2024-04-04] MEDS: DEXTROSE 5%-0.45% NS 1,000 ML 100 ML IV (06:46)
[2024-04-04 06:50] LABS: BUN Creatinine Ratio 20.5 (6-22); Blood Urea Nitrogen 16 mg/dL (9-20); Calcium 8.4 mg/dL (8.4-10.2); Carbon Dioxide 26 mmol/L (22-32); Chloride 108 mmol/L (98-107); Estimated Glomerular Filt Rate > 60 mL/min (>60); Glucose 125 mg/dL (80-110); HEMOLYSIS < 15 (0-50); Potassium 4.2 mmol/L (3.4-5.1); Sodium 137 mmol/L (137-145)
[2024-04-04] MEDS: ACETAMINOPHEN 325 MG TABLET 650 MG PO (08:20)
--- NOTE | 2024-04-04 11:39 | P.PN_ITS ---
Subjective Subjective Date Patient Seen: 04/04/24 Time Patient Seen: 11:39 Interval history: Small liquid bowel movement last night but no significant bowel movement or flatus. Still feels bloated and distended. Exam Vital Signs (past 8 hours): - 04/04/24 08:00 Temperature 97.7 F Pulse Rate 72 Respiratory Rate 16 Blood Pressure 121/69 Pulse Oximetry 96 Oxygen Flow Rate 0 Oxygen Delivery Method Room Air Oxygen Flow Rate 0 Narrative Exam Narrative: Asleep Abdomen is soft nontender Objective Labs 04/04/24 06:00 04/04/24 06:00 Labs: Laboratory Results - last 24 hr 04/03/24 04/04/24 11:55 06:00 WBC 8.9 5.7 RBC 5.06 4.50 Hgb 15.5 13.8 Hct 46.0 40.8 L MCV 91.0 90.6 MCH 30.6 30.7 MCHC 33.6 33.8 RDW 14.0 13.9 Plt Count 214 189 Neut % (Auto) 86.7 H 69.9 Lymph % (Auto) 6.[address] [place] % (Auto) 6.1 12.2 Eos % (Auto) 0.2 L 1.8 L Baso % (Auto) 0.2 0.3 Neut # (Auto) 7700 H 4000 Lymph # (Auto) [address] # (Auto) 500 700 Eos # (Auto) 0 100 Baso # (Auto) 0 0 Sodium 139 137 Potassium 4.0 4.2 Chloride 105 108 H Carbon Dioxide 28 26 BUN 17 16 Creatinine 0.77 0.78 Estimated GFR > 60 > 60 BUN/Creatinine Ratio 22.1 H 20.5 Glucose 123 H 125 H Lactate 1.0 Calcium 9.5 8.4 Total Bilirubin 0.6 AST 25 ALT 22 Alkaline Phosphatase 83 Total Creatine Kinase 60 Troponin I < 0.012 Total Protein 7.7 Albumin 4.6 Globulin 3.1 Albumin/Globulin Ratio 1.5 Lipase 78 Urine RBC None seen Urine WBC 5-10/hpf H Ur Squamous Epith Cells None seen Urine Bacteria Few (2-10) H Ur Culture Indicated? Specimen cultured Vol Urine Centrifuged 10ml (spun) [facility] Medical History CVA (cerebral vascular accident) GERD (gastroesophageal reflux disease) Hypertension Kidney stones Obstructive sleep apnea syndrome Primary insomnia Snoring Surgical History Hx of total knee arthroplasty S/P percutaneous patent foramen ovale closure (~2007) S/P total knee arthroplasty Family History Grandfather Stroke Sister PFO (patent foramen ovale) Social History household members: spouse Smoking Status: Former smoker alcohol intake: current Assessment & Plan Assessment and plan (1) Complete small bowel obstruction: Status: Acute Plan Start a Gastrografin challenge by mouth today. Time-Based Coding :: [TOTAL MINUTES] spent with patient and on the chart (including review of chart, obtaining history, exam, reviewing outside data, placing orders, documenting exam and treatment plan, and counseling patient) on [DATE]. Quality VTE Deep Vein Thrombosis/Pulmonary Embolism Present on Admission: No
--- NOTE | 2024-04-04 14:36 | CM.DANOTE ---
Initial DCP Assessment Visit Note Reviewed EMR and team rounds for status updates. Met with pt at bedside to introduce self and role. Pt was found to be laying flat, eyes tighly closed, expressing acute discomfort. He was in the midst of a gastrogaffin challenge, and was not able to take pain medication yet. Pt lives independently at baseline in his own home with his . His will also plan to transport him home once he's medically stable for d/c. Payor: [employer] Provider: Dr. Alicea Pt is a 73 year-old M with a hx of diverticulitis and colon resection presented to the ED last evening with c/o 3-days abdominal cramping, and no BM in several days. CT abd/pelivs showed a small bowel obstruction. Pt was started on conservative measures of bowel rest, was admitted for further tx/evaluation. Today, he is doing the gastrogaffin challenge to clarify the need for surgical intervention or not. DCP will continue to monitor for any evolving needs for d/c plan. At this time, no needs are anticipated for DCP assistance. Discharge Planning/Care Management CM Discharge Assessment Start: 04/04/24 14:34 Freq: Status: Active Protocol: Document 04/04/24 14:35 DPL (Rec: 04/04/24 14:36 DPL [id number]) Discharge Planning Assessment Assigned Shrimp Peeler ALISON Palacios Advance Directives? Yes Advance Directives on File Yes History Provided By Patient,Medical Record Has Patient been admitted in last 30 No days? Prior Living Arrangements House Household Members spouse Type of transporation used prior to Drives own vehicle admit Independent with ADL's Yes Is patient alert and oriented? Yes Caregiver for Another No Comment N/A Comment No anticipated home d/c needs at this time. Barriers to Discharge No Discharge Plan Home Transportation Arrangement Spouse Referrals Initiated None needed Whiteboard Updated in Patient Room with Yes name and ext. # of Shrimp Peeler Review Status In Process Please Provide Date Initial DC 04/04/24 Assessment Was Performed
[2024-04-04] MEDS: HYDROMORPHONE 0.5 MG INJ 0.25 MG IV (15:06)
--- NOTE | 2024-04-04 15:31 | PM.PN.1 ---
Subjective Subjective Date Patient Seen: 04/04/24 Time Patient Seen: 15:31 Interval history: Attempted gastrograffin challenge today. Patient reported increased pain and distention after consuming the Gastrografin and vomited twice. Exam Vital Signs (past 8 hours): - 04/04/24 08:00 Temperature 97.7 F Pulse Rate 72 Respiratory Rate 16 Blood Pressure 121/69 Pulse Oximetry 96 Oxygen Flow Rate 0 Oxygen Delivery Method Room Air Oxygen Flow Rate 0 Narrative Exam Narrative: Abdomen is significantly more tender to palpation today than yesterday with percussion tenderness in the midline Objective Labs 04/04/24 06:00 04/04/24 06:00 Labs: Laboratory Results - last 24 hr 04/04/24 06:00 WBC 5.7 RBC 4.50 Hgb 13.8 Hct 40.8 L MCV 90.6 MCH 30.7 MCHC 33.8 RDW 13.9 Plt Count 189 Neut % (Auto) 69.9 Lymph % (Auto) 15.8 L [place] % (Auto) 12.2 Eos % (Auto) 1.8 L Baso % (Auto) 0.3 Neut # (Auto) 4000 Lymph # (Auto) 900 L [place] # (Auto) 700 Eos # (Auto) 100 Baso # (Auto) 0 Sodium 137 Potassium 4.2 Chloride 108 H Carbon Dioxide 26 BUN 16 Creatinine 0.78 Estimated GFR > 60 BUN/Creatinine Ratio 20.5 Glucose 125 H Calcium 8.4 PFSH Medical History CVA (cerebral vascular accident) GERD (gastroesophageal reflux disease) Hypertension Kidney stones Obstructive sleep apnea syndrome Primary insomnia Snoring Surgical History Hx of total knee arthroplasty S/P percutaneous patent foramen ovale closure (~2007) S/P total knee arthroplasty Family History Grandfather Stroke Sister PFO (patent foramen ovale) Social History household members: spouse Smoking Status: Former smoker alcohol intake: current Assessment & Plan Assessment and plan (1) Complete small bowel obstruction: Status: Acute Plan I recommended proceeding to the operating room for exploratory laparotomy and any indicated procedures due to worsening abdominal exam and symptoms. Time-Based Coding :: [TOTAL MINUTES] spent with patient and on the chart (including review of chart, obtaining history, exam, reviewing outside data, placing orders, documenting exam and treatment plan, and counseling patient) on [DATE]. Quality VTE Deep Vein Thrombosis/Pulmonary Embolism Present on Admission: No
--- NOTE | 2024-04-04 15:38 | DI.RAD.S_ITS ---
PROCEDURE: XR CHEST 1V INDICATIONS: NG placement TECHNIQUE: One view of the chest was acquired. COMPARISON: [facility], CR, XR GASTROGRAFIN CHALLENGE, 04/04/2024, 15:37. FINDINGS: Surgical changes and devices: Enteric tube loops in the stomach and terminates near the cardia. Lungs and pleura: Lung bases are unremarkable where visualized. Mediastinum: Partially seen heart size at the upper limit of normal Bones and chest wall: Unremarkable where visualized Oral contrast is seen within distended loops of bowel. IMPRESSION: Enteric tube loops in the stomach and terminates at the cardia. Oral contrast is partially seen within distended loops of bowel. Dictated by: Henri Morales M.D. on 04/04/2024 at 16:21 Approved by: Henri Morales M.D. on 04/04/2024 at 16:22
[2024-04-04] MEDS: LACTATED RINGERS 1,000 ML 42 ML IV ×2 (16:25→17:38)
[2024-04-04] MEDS: PIPERACILLIN/TAZO 4.5 GM in SODIUM CHLORIDE 0.9% 100 ML IV (16:30)
--- NOTE | 2024-04-04 16:49 | SUR.OPER ---
Supine on padded OR bed, head on pillow, arms secured on padded arm boards at <90 degrees abduction, legs uncrossed, safety belt at thigh, tape over blanket over lower legs.
[2024-04-04] MEDS: ACETAMINOPHEN IV 1,000 MG/100 ML VIAL 400 MG IV (17:00)
[2024-04-04] MEDS: BUPIVACAINE LIPOSOME 266 MG/20 ML VIAL INJ (17:28)
--- NOTE | 2024-04-04 17:49 | PM.OP.1 ---
Operative Date/Time/Diagnoses Date of procedure: 04/04/24 Time of procedure: 17:49 Pre-op diagnosis: Small bowel obstruction Post-op diagnosis: same Procedure & Clinicians Procedure: Exploratory laparotomy Lysis of adhesions Same procedure as scheduled: Yes Surgeon: Dale Gomes Anesthesia Type: General Operative Notes Procedure in detail: The patient was brought to the operating room and general endotracheal anesthesia was induced. Zosyn was administered. A Ashby catheter was placed. The abdomen was prepped and draped in the usual fashion and a time-out was performed. We made a 9 cm midline incision around the umbilicus. We divided the anterior sheath above the umbilicus and carefully grasped the posterior sheath between tonsil clamps and divided the tissue between the clamps with Metzenbaum scissors. We entered the abdomen without injuring the bowel. There were no adhesions to the abdominal wall near the umbilicus. We then carefully extended the incision inferiorly. We eviscerated some dilated loops of small bowel. We traced the first posture of adhesions to the anterior abdominal wall in the left lower quadrant. These adhesions were carefully divided with Metzenbaum scissors freeing up the bowel. It appeared that the bowel was still dilated beyond these points so we traced the bowel to more adhesions to the anterior abdominal wall in the right lower quadrant. Once we divided these adhesions we were across the transition point. There were a few small serosal tears were adhesions had been quite tenacious between bowel wall and anterior abdominal wall. These were closed with 2 or 3 multiple interrupted 3-0 Vicryl seromuscular stitches. We could run the bowel from clearly dilated bowel to clearly decompressed bowel with no obstruction we then injected some Exparel into the fascia and closed with a running 0 PDS suture supported by multiple interrupted 0 Vicryl internal retention sutures. We then closed skin with ava and a sterile dressing was applied. EBL: 10 mL Specimen: None Post-operative Condition: stable Disposition: PACU
[2024-04-04] MEDS: hydrOXYzine 50 MG/ML INJ 25 MG IM (18:25)
[2024-04-04] MEDS: HYDROMORPHONE 0.5 MG INJ IV ×2 (19:48→21:58)
[2024-04-04] MEDS: ONDANSETRON 4 MG/2 ML INJ IV (19:48)
[2024-04-04] MEDS: PIPERACILLIN/TAZO 3.375 GM in SODIUM CHLORIDE 0.9% 100 ML IV (19:49)
[2024-04-05] MEDS: HYDROMORPHONE 0.5 MG INJ IV ×8 (00:51→21:26)
[2024-04-05] MEDS: ONDANSETRON 4 MG/2 ML INJ IV ×2 (00:51→07:50)
[2024-04-05] MEDS: PIPERACILLIN/TAZO 3.375 GM in SODIUM CHLORIDE 0.9% 100 ML IV ×2 (03:47→11:37)
[2024-04-05 08:56] VITALS: BP 115/73; PULSE 64; RESP 16; TEMP 36.7; O2SAT 100
--- NOTE | 2024-04-05 10:41 | CM.DPC ---
DCP Continued: Reviewed EMR and team rounds for pt?s medical status. Per EMR, pt is POD1 exploratory laparotomy. No new discharge needs identified at this time. Plan: Pt to discharge home when stable with to transport. CM Team will continue to follow for coordination of discharge plans. CHASITY Thomas
--- NOTE | 2024-04-05 12:14 | PM.PNPO.1 ---
Subjective Subjective Date Patient Seen: 04/05/24 Time Patient Seen: 12:14 Interval history: Ex lap lysis of adhesions yesterday for SBO. No flatus or BM Exam Vital Signs (past 8 hours): - 04/05/24 08:56 Temperature 98.0 F Pulse Rate 64 Respiratory Rate 16 Blood Pressure 115/73 Pulse Oximetry 100 Oxygen Delivery Method Room Air Oxygen Flow Rate 0 Narrative Exam Narrative: General elderly man alert oriented Chest nonlabored respiration Abdomen distended Objective Labs 04/04/24 06:00 04/04/24 06:00 PFS Medical History CVA (cerebral vascular accident) GERD (gastroesophageal reflux disease) Hypertension Kidney stones Obstructive sleep apnea syndrome Primary insomnia Snoring Surgical History Hx of total knee arthroplasty S/P percutaneous patent foramen ovale closure (~2007) S/P total knee arthroplasty Family History Grandfather Stroke Sister PFO (patent foramen ovale) Social History household members: spouse Smoking Status: Former smoker alcohol intake: current Assessment & Plan Post-op Postoperative Procedures: Procedures Operation Date: 04/04/24 16:30 Actual Procedure Side Surgeon p Exploratory Laparotomy with lysis of adhesions aDle Gomes MD Postoperative status narrative: -continue nasogastric tube until return of bowel function Postoperative plan: routine post-op care Quality VTE Deep Vein Thrombosis/Pulmonary Embolism Present on Admission: No
[2024-04-05] MEDS: DEXTROSE 5%-0.45% NS 1,000 ML 100 ML IV (15:30)
[2024-04-05 17:01] VITALS: BP 139/71; PULSE 64; RESP 18; TEMP 36.7; O2SAT 94
[2024-04-05] MEDS: FINASTERIDE 5 MG TABLET PO (17:44)
[2024-04-05] MEDS: TAMSULOSIN 0.4 MG CAPSULE 0.8 MG PO (17:44)
[2024-04-05 20:16] VITALS: BP 122/68; PULSE 64; RESP 16; TEMP 36.3; O2SAT 94
[2024-04-05] MEDS: GABAPENTIN 600 MG TABLET PO (21:26)
[2024-04-06 01:18] VITALS: BP 121/68; PULSE 67; RESP 20; TEMP 36.4; O2SAT 94
[2024-04-06] MEDS: HYDROMORPHONE 0.5 MG INJ IV (01:25)
[2024-04-06] MEDS: DEXTROSE 5%-0.45% NS 1,000 ML 100 ML IV ×3 (01:30→20:54)
--- NOTE | 2024-04-06 06:05 | PC.NURSE ---
Slept most of the night, awakened to use the BR. Unable to void bladder scanned [address] Armendariz ordered straight, order implemented 615 cc out of dark yellow urine. Declined pain medication @ this time, will continue plan of care & monitor.
[2024-04-06 06:17] VITALS: BP 122/73; PULSE 63; RESP 16; TEMP 36.5; O2SAT 95
[2024-04-06 08:00] VITALS: BP 125/71; PULSE 64; RESP 16; TEMP 36.5; O2SAT 99
[2024-04-06] MEDS: ENOXAPARIN 40 MG/0.4 ML SYRINGE SUBCUT (09:29)
[2024-04-06] MEDS: ACETAMINOPHEN 325 MG TABLET 650 MG PO ×2 (12:22→18:04)
[2024-04-06] MEDS: GABAPENTIN 300 MG CAPSULE PO (12:22)
--- NOTE | 2024-04-06 13:04 | PM.PN.1 ---
Subjective Subjective Date Patient Seen: 04/06/24 Time Patient Seen: 13:04 Interval history: NG removed yesterday Feeling much better today Some flatus this morning. Exam Vital Signs (past 8 hours): - 04/06/24 06:17 04/06/24 08:00 Temperature 97.7 F 97.7 F Pulse Rate 63 64 Respiratory Rate 16 16 Blood Pressure 122/73 125/71 Pulse Oximetry 95 99 Oxygen Flow Rate 0 Oxygen Delivery Method Room Air Oxygen Flow Rate 0 Narrative Exam Narrative: Abdomen is soft, nontender Incision clean dry and intact Objective Labs 04/04/24 06:00 04/04/24 06:00 [facility] Medical History CVA (cerebral vascular accident) GERD (gastroesophageal reflux disease) Hypertension Kidney stones Obstructive sleep apnea syndrome Primary insomnia Snoring Surgical History Hx of total knee arthroplasty S/P percutaneous patent foramen ovale closure (~2007) S/P total knee arthroplasty Family History Grandfather Stroke Sister PFO (patent foramen ovale) Social History household members: spouse Smoking Status: Former smoker alcohol intake: current Assessment & Plan Assessment and plan (1) Complete small bowel obstruction: Status: Acute Plan Start clear liquid diet today Time-Based Coding :: [TOTAL MINUTES] spent with patient and on the chart (including review of chart, obtaining history, exam, reviewing outside data, placing orders, documenting exam and treatment plan, and counseling patient) on [DATE]. Quality VTE Deep Vein Thrombosis/Pulmonary Embolism Present on Admission: No
[2024-04-06 16:00] VITALS: BP 148/81; PULSE 71; RESP 16; TEMP 36.7; O2SAT 98
[2024-04-06 20:35] VITALS: BP 151/76; PULSE 66; RESP 17; TEMP 36.3; O2SAT 95
[2024-04-06] MEDS: TAMSULOSIN 0.4 MG CAPSULE 0.8 MG PO (20:36)
[2024-04-06] MEDS: FINASTERIDE 5 MG TABLET PO (20:37)
[2024-04-06] MEDS: GABAPENTIN 600 MG TABLET PO (20:37)
[2024-04-06] MEDS: PANTOPRAZOLE DR 20 MG TABLET PO (22:22)
[2024-04-07 02:20] VITALS: BP 139/65; PULSE 65; RESP 18; TEMP 36.3; O2SAT 96
[2024-04-07] MEDS: HYDROMORPHONE 0.5 MG INJ IV (03:12)
[2024-04-07] MEDS: ONDANSETRON 4 MG/2 ML INJ IV ×2 (03:20→08:50)
[2024-04-07] MEDS: DEXTROSE 5%-0.45% NS 1,000 ML 100 ML IV ×2 (07:38→17:53)
[2024-04-07 08:00] VITALS: PULSE 70; RESP 18; TEMP 36.6; O2SAT 97
[2024-04-07] MEDS: LORATADINE 10 MG TABLET PO (08:50)
[2024-04-07] MEDS: GABAPENTIN 300 MG CAPSULE PO (08:50)
[2024-04-07] MEDS: ENOXAPARIN 40 MG/0.4 ML SYRINGE SUBCUT (08:50)
--- NOTE | 2024-04-07 10:07 | PM.PN.1 ---
Subjective Subjective Date Patient Seen: 04/07/24 Time Patient Seen: 10:07 Interval history: Feeling no better today, possibly worse Reports discomfort, bloating and lack of appetite today No appreciable recent flatus He needed to have the Ashby catheter replaced last night for urinary retention Exam Vital Signs (past 8 hours): - 04/07/24 02:20 04/07/24 08:00 Temperature 97.4 F L 97.8 F Pulse Rate 65 70 Respiratory Rate 18 18 Blood Pressure 139/65 Pulse Oximetry 96 97 Oxygen Flow Rate 0 0 Oxygen Delivery Method Room Air Oxygen Flow Rate 0 Narrative Exam Narrative: Abdomen is soft, appropriately tender Incision clean, intact Objective Labs 04/04/24 06:00 04/04/24 06:00 [facility] Medical History CVA (cerebral vascular accident) GERD (gastroesophageal reflux disease) Hypertension Kidney stones Obstructive sleep apnea syndrome Primary insomnia Snoring Surgical History Hx of total knee arthroplasty S/P percutaneous patent foramen ovale closure (~2007) S/P total knee arthroplasty Family History Grandfather Stroke Sister PFO (patent foramen ovale) Social History household members: spouse Smoking Status: Former smoker alcohol intake: current Assessment & Plan Assessment and plan (1) Complete small bowel obstruction: Status: Acute Plan Await bowel function before advancing diet Continue Ashby catheter for urinary retention Time-Based Coding :: [TOTAL MINUTES] spent with patient and on the chart (including review of chart, obtaining history, exam, reviewing outside data, placing orders, documenting exam and treatment plan, and counseling patient) on [DATE]. Quality VTE Deep Vein Thrombosis/Pulmonary Embolism Present on Admission: No
--- NOTE | 2024-04-07 11:36 | CM.DPC ---
DCP Cont. Reviewed EMR and team rounds for status updates. Per Dr. Gomes, pt is feeling worse today, is very bloated, has not been able to advance diet, no flatus, no return of bowel function as of today. Will continue to monitor for any further d/c needs/recommendations.
[2024-04-07 14:00] VITALS: BP 123/74; PULSE 67; RESP 16; TEMP 36.4; O2SAT 97
[2024-04-07 20:29] VITALS: BP 146/77; PULSE 58; RESP 16; TEMP 36.2; O2SAT 97
[2024-04-07] MEDS: TAMSULOSIN 0.4 MG CAPSULE 0.8 MG PO (20:32)
[2024-04-07] MEDS: PANTOPRAZOLE DR 20 MG TABLET PO (20:32)
[2024-04-07] MEDS: GABAPENTIN 600 MG TABLET PO (20:32)
[2024-04-07] MEDS: FINASTERIDE 5 MG TABLET PO (20:33)
[2024-04-08 02:25] VITALS: BP 134/72; PULSE 61; RESP 16; TEMP 36.1; O2SAT 91
[2024-04-08] MEDS: DEXTROSE 5%-0.45% NS 1,000 ML 100 ML IV (04:22)
[2024-04-08 06:00] VITALS: BP 114/73; PULSE 65; RESP 20; TEMP 36.2; O2SAT 95
[2024-04-08] MEDS: ACETAMINOPHEN 325 MG TABLET 650 MG PO ×2 (09:02→17:34)
[2024-04-08] MEDS: LORATADINE 10 MG TABLET PO (09:02)
[2024-04-08] MEDS: ENOXAPARIN 40 MG/0.4 ML SYRINGE SUBCUT (09:02)
[2024-04-08] MEDS: GABAPENTIN 300 MG CAPSULE PO (09:02)
[2024-04-08 12:00] VITALS: BP 140/72; PULSE 57; RESP 18; TEMP 36.2; O2SAT 98
--- NOTE | 2024-04-08 12:08 | PM.PN.1 ---
Subjective Subjective Date Patient Seen: 04/08/24 Interval history: Feeling much better today. He had a few bowel movements recently. Exam Vital Signs (past 8 hours): - 04/08/24 06:00 Temperature 97.2 F L Pulse Rate 65 Respiratory Rate 20 Blood Pressure 114/73 Pulse Oximetry 95 Oxygen Flow Rate 0 Oxygen Delivery Method Room Air Oxygen Flow Rate 0 Const General: healthy appearing and No acute distress Objective Labs 04/04/24 06:00 04/04/24 06:00 [facility] Medical History CVA (cerebral vascular accident) GERD (gastroesophageal reflux disease) Hypertension Kidney stones Obstructive sleep apnea syndrome Primary insomnia Snoring Surgical History Hx of total knee arthroplasty S/P percutaneous patent foramen ovale closure (~2007) S/P total knee arthroplasty Family History Grandfather Stroke Sister PFO (patent foramen ovale) Social History household members: spouse Smoking Status: Former smoker alcohol intake: current Assessment & Plan Assessment and plan (1) Complete small bowel obstruction: Status: Acute Plan Ileus appears to be resolving Start regular diet Continue Ashby Time-Based Coding :: [TOTAL MINUTES] spent with patient and on the chart (including review of chart, obtaining history, exam, reviewing outside data, placing orders, documenting exam and treatment plan, and counseling patient) on [DATE]. Quality VTE Deep Vein Thrombosis/Pulmonary Embolism Present on Admission: No
--- NOTE | 2024-04-08 15:48 | DIET.CONS2 ---
Dietary Inpatient Consultation Note Admission Date: 04/03/2024 14:06 73 y M admitted for SBO. Nutrition screened for LOS. Met with pt at bedside. Reports <50% intake for 3 days prior to admission. Has been purposefully attempting to lose weight before admission to hospital, reports most recent weight 84 kg. Ate 100% lunch on regular diet. DFM reviewed to ensure adequate meal composition. No nutritional interventions needed at this time. Will continue to monitor po intakes and f/u prn. Diet: 04/08/24 Lunch Regular [General (Regular) Diet] Diet Modifications: Food Texture: Level 7 - Regular Liquid Consistency: Level 0 - Thin Nutrition Percent Meal Consumed 100% 04/08/24 12:47 Percent Meal Consumed 25% 04/07/24 18:00 Percent Meal Consumed 25% 04/07/24 13:00 Percent Meal Consumed 0% 04/07/24 10:13 Electronically Signed by: Natalee Mckeon 04/08/24 15:48 Clinical Dietitian [address] [address]
[2024-04-08 18:00] VITALS: BP 139/85; PULSE 71; RESP 18; TEMP 36.9; O2SAT 97
[2024-04-08] MEDS: FINASTERIDE 5 MG TABLET PO (20:32)
[2024-04-08] MEDS: TAMSULOSIN 0.4 MG CAPSULE 0.8 MG PO (20:32)
[2024-04-08] MEDS: GABAPENTIN 600 MG TABLET PO (20:32)
[2024-04-08] MEDS: PANTOPRAZOLE DR 20 MG TABLET PO (20:32)
[2024-04-08] MEDS: ONDANSETRON 4 MG/2 ML INJ IV (22:26)
[2024-04-08] MEDS: HYDROMORPHONE 0.5 MG INJ IV (23:42)
--- NOTE | 2024-04-09 00:20 | PC.NURSE ---
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 Bowel tones are present in all four quadrants, patient is passing some gas & belching, last BM was yesterday. Ambulated in the hallway and to the bathroom, appeared to help with some of the discomfort. Patient is nauseous and vomited bile x2, abdomen starting to feel firmer than previous assessment at 1930 and more tender upon palpation. Lung sounds are clear. Denies SOB or chest pain. Notified MD Gomes of findings, new order for NPO status. Medicated for pain as ordered. Oriented to call-light, plan of care ongoing.
[2024-04-09] MEDS: ONDANSETRON 4 MG/2 ML INJ IV ×2 (04:49→09:38)
[2024-04-09 05:00] VITALS: TEMP 37.4
[2024-04-09 06:00] VITALS: BP 136/84; PULSE 83; RESP 19; TEMP 36.4; O2SAT 93
[2024-04-09 08:41] VITALS: BP 145/90; PULSE 80; RESP 19; TEMP 36.1; O2SAT 95
--- NOTE | 2024-04-09 10:10 | PM.PN.1 ---
Subjective Subjective Date Patient Seen: 04/09/24 Time Patient Seen: 10:10 Interval history: He seemed to be tolerating his diet yesterday but then after dinner he started vomiting. He continues to vomit today. He reports that he was still passing gas but he does not feel well. Exam Vital Signs (past 8 hours): - 04/09/24 05:00 04/09/24 06:00 04/09/24 08:41 Temperature 99.3 F 97.6 F 97 F L Pulse Rate 83 80 Respiratory Rate 19 19 Blood Pressure 136/84 145/90 H Pulse Oximetry 93 95 Oxygen Flow Rate 0 0 Oxygen Delivery Method Room Air Oxygen Flow Rate 0 Narrative Exam Narrative: Abdomen is soft, appropriately tender Objective Labs 04/04/24 06:00 04/04/24 06:00 [facility] Medical History CVA (cerebral vascular accident) GERD (gastroesophageal reflux disease) Hypertension Kidney stones Obstructive sleep apnea syndrome Primary insomnia Snoring Surgical History Hx of total knee arthroplasty S/P percutaneous patent foramen ovale closure (~2007) S/P total knee arthroplasty Family History Grandfather Stroke Sister PFO (patent foramen ovale) Social History household members: spouse Smoking Status: Former smoker alcohol intake: current Assessment & Plan Assessment and plan (1) Complete small bowel obstruction: Status: Acute Plan Suspect ileus NPO Resume IV fluids and replace NG tube Time-Based Coding :: [TOTAL MINUTES] spent with patient and on the chart (including review of chart, obtaining history, exam, reviewing outside data, placing orders, documenting exam and treatment plan, and counseling patient) on [DATE]. Quality VTE Deep Vein Thrombosis/Pulmonary Embolism Present on Admission: No
--- NOTE | 2024-04-09 10:50 | DI.RAD.S_ITS ---
PROCEDURE: XR CHEST 1V INDICATIONS: NG placement TECHNIQUE: One view of the chest was acquired. COMPARISON: [facility], CR, XR CHEST 1V, 04/04/2024, 15:37. FINDINGS: Surgical changes and devices: Gastric tube side port projects over the stomach. The tip is not visualized. Lungs and pleura: Streaky left basilar opacities. Mediastinum: Mediastinal contours appear normal. Heart size is normal. Bones and chest wall: No suspicious bony lesions. Overlying soft tissues appear unremarkable. IMPRESSION: Gastric tube side port projects over the stomach. The tip is not visualized, and could be within the duodenum. Consider retraction by 5 cm to ensure proper gastric location. Streaky left basilar opacities, probably atelectasis. Dictated by: Santosh Colmenares M.D. on 04/09/2024 at 10:46 Approved by: Santosh Colmenares M.D. on 04/09/2024 at 10:47
[2024-04-09] MEDS: LACTATED RINGERS 1,000 ML 100 ML IV (11:12)
--- NOTE | 2024-04-09 11:16 | CM.DPC ---
DCP Cont. Reviewed EMR and team rounds for status updates. Per Hospitalist, pt did not tolerate advancing to solid foods yesterday, she became very nauseous. She was then made NPO and the plan is to advance back to clears again once the nausea is resolved. Will monitor for any further d/c needs, none are anticipated at this time.
[2024-04-09 11:26] LABS: Add Manual Diff / Slide Review NO; Basophils Absolute Auto 0 /uL (0-100); Basophils Percent Auto 0.3 % (0-2); Eosinophils Absolute Auto 0 /uL (0-450); Eosinophils Percent Auto 0.2 % (2-4); Hematocrit 40.7 % (41-53); Hemoglobin 13.8 g/dL (13.5-17.5); Lymphocytes Absolute Auto 300 /uL (1100-4500); Lymphocytes Percent Auto 4.5 % (25-40); Mean Corpuscular HGB Conc 33.8 % (30-36); Mean Corpuscular Hemoglobin 30.5 PG (26-34); Mean Corpuscular Volume 90.1 fL (80-100); Monocytes Absolute Auto 800 /uL (0-900); Monocytes Percent Auto 10.7 % (3-14); Neutrophils Absolute Auto 6000 /uL (1500-7000); Neutrophils Percent Auto 84.3 % (50-75); Platelet Count 210 X10^3/uL (150-400); Red Blood Cell Count 4.51 X10^6/uL (4.5-5.9); Red Cell Distribution Width 13.4 % (11.6-14.8); White Blood Cell Count 7.1 X10^3/uL (4.5-11.0)
[2024-04-09 12:00] VITALS: BP 153/74; PULSE 74; RESP 19; TEMP 36.3; O2SAT 91
[2024-04-09 12:00] LABS: BUN Creatinine Ratio 21.7 (6-22); Blood Urea Nitrogen 15 mg/dL (9-20); Calcium 8.8 mg/dL (8.4-10.2); Carbon Dioxide 21 mmol/L (22-32); Chloride 106 mmol/L (98-107); Estimated Glomerular Filt Rate > 60 mL/min (>60); Glucose 126 mg/dL (80-110); HEMOLYSIS < 15 (0-50); Potassium 3.6 mmol/L (3.4-5.1); Sodium 137 mmol/L (137-145)
[2024-04-09 15:00] VITALS: BP 136/74; PULSE 72; RESP 19; TEMP 36.2; O2SAT 95
[2024-04-09] MEDS: ACETAMINOPHEN 325 MG TABLET 650 MG PO (18:00)
[2024-04-09 20:00] VITALS: BP 132/64; PULSE 62; RESP 19; TEMP 36.4; O2SAT 95
[2024-04-10 01:10] VITALS: BP 132/68; PULSE 65; RESP 18; TEMP 36.6; O2SAT 95
[2024-04-10] MEDS: HYDROMORPHONE 0.5 MG INJ IV ×2 (02:38→05:45)
[2024-04-10 08:00] VITALS: BP 130/68; PULSE 54; RESP 16; TEMP 36.5; O2SAT 98
--- NOTE | 2024-04-10 10:12 | P.PN_ITS ---
Subjective Subjective Date Patient Seen: 04/10/24 Time Patient Seen: 10:12 Interval history: Feeling better today. He did have bowel movement last night and he is passing some gas. Feels less distended. The NG tube initially put out a large volume of gastric contents but it has slowed down significantly. Exam Vital Signs (past 8 hours): - 04/10/24 08:00 Temperature 97.7 F Pulse Rate 54 L Respiratory Rate 16 Blood Pressure 130/68 Pulse Oximetry 98 Oxygen Delivery Method Room Air Oxygen Flow Rate 0 Const General: No acute distress Resp Effort & Inspection: normal respiratory effort Objective Labs 04/09/24 11:13 04/09/24 11:13 Labs: Laboratory Results - last 24 hr 04/09/24 11:13 WBC 7.1 RBC 4.51 Hgb 13.8 Hct 40.7 L MCV 90.1 MCH 30.5 MCHC 33.8 RDW 13.4 Plt Count 210 Neut % (Auto) 84.3 H Lymph % (Auto) 4.5 L [place] % (Auto) 10.7 Eos % (Auto) 0.2 L Baso % (Auto) 0.3 Neut # (Auto) 6000 Lymph # (Auto) 300 L [place] # (Auto) 800 Eos # (Auto) 0 Baso # (Auto) 0 Sodium 137 Potassium 3.6 Chloride 106 Carbon Dioxide 21 L BUN 15 Creatinine 0.69 Estimated GFR > 60 BUN/Creatinine Ratio 21.7 Glucose 126 H Calcium 8.8 PFSH Medical History CVA (cerebral vascular accident) GERD (gastroesophageal reflux disease) Hypertension Kidney stones Obstructive sleep apnea syndrome Primary insomnia Snoring Surgical History Hx of total knee arthroplasty S/P percutaneous patent foramen ovale closure (~2007) S/P total knee arthroplasty Family History Grandfather Stroke Sister PFO (patent foramen ovale) Social History household members: spouse Smoking Status: Former smoker alcohol intake: current Assessment & Plan Assessment and plan (1) Complete small bowel obstruction: Status: Acute Plan Ileus appears to be improving DC NG tube and start clears Time-Based Coding :: [TOTAL MINUTES] spent with patient and on the chart (including review of chart, obtaining history, exam, reviewing outside data, placing orders, documenting exam and treatment plan, and counseling patient) on [DATE]. Quality VTE Deep Vein Thrombosis/Pulmonary Embolism Present on Admission: No
[2024-04-10 16:00] VITALS: BP 122/66; PULSE 64; RESP 16; TEMP 36.2; O2SAT 99
[2024-04-10] MEDS: ONDANSETRON 4 MG/2 ML INJ IV (21:00)
[2024-04-10] MEDS: FINASTERIDE 5 MG TABLET PO (21:00)
[2024-04-10] MEDS: PANTOPRAZOLE DR 20 MG TABLET PO (21:00)
[2024-04-10] MEDS: GABAPENTIN 600 MG TABLET PO (21:00)
[2024-04-10] MEDS: TAMSULOSIN 0.4 MG CAPSULE 0.8 MG PO (21:00)
[2024-04-11 08:00] VITALS: BP 121/76; PULSE 66; RESP 16; TEMP 36.3; O2SAT 99
[2024-04-11] MEDS: LORATADINE 10 MG TABLET PO (08:19)
[2024-04-11] MEDS: ONDANSETRON 4 MG/2 ML INJ IV ×3 (08:19→20:52)
[2024-04-11] MEDS: GABAPENTIN 300 MG CAPSULE PO (08:19)
[2024-04-11] MEDS: ENOXAPARIN 40 MG/0.4 ML SYRINGE SUBCUT (08:19)
--- NOTE | 2024-04-11 09:25 | PM.PN.1 ---
Subjective Subjective Date Patient Seen: 04/11/24 Time Patient Seen: 09:25 Interval history: [place] feels marginally better today Passing gas and having some liquid bowel movements Tolerating small amounts of clear liquids but still minimal appetite Exam Vital Signs (past 8 hours): - 04/11/24 08:00 Temperature 97.4 F L Pulse Rate 66 Respiratory Rate 16 Blood Pressure 121/76 Pulse Oximetry 99 Oxygen Delivery Method Room Air Oxygen Flow Rate 0 Const General: No acute distress Resp Effort & Inspection: normal respiratory effort Objective Labs 04/09/24 11:13 04/09/24 11:13 PFSH Medical History CVA (cerebral vascular accident) GERD (gastroesophageal reflux disease) Hypertension Kidney stones Obstructive sleep apnea syndrome Primary insomnia Snoring Surgical History Hx of total knee arthroplasty S/P percutaneous patent foramen ovale closure (~2007) S/P total knee arthroplasty Family History Grandfather Stroke Sister PFO (patent foramen ovale) Social History household members: spouse Smoking Status: Former smoker alcohol intake: current Assessment & Plan Assessment and plan (1) Complete small bowel obstruction: Status: Acute Plan Continue clear liquids Once his appetite returns we can advance to regular Time-Based Coding :: [TOTAL MINUTES] spent with patient and on the chart (including review of chart, obtaining history, exam, reviewing outside data, placing orders, documenting exam and treatment plan, and counseling patient) on [DATE]. Quality VTE Deep Vein Thrombosis/Pulmonary Embolism Present on Admission: No
[2024-04-11 17:00] VITALS: BP 123/67; PULSE 62; RESP 16; TEMP 36.6; O2SAT 99
[2024-04-11] MEDS: LACTATED RINGERS 1,000 ML 120 ML IV (21:52)
[2024-04-11] MEDS: CALCIUM CARBONATE 500 MG TAB PO (22:13)
[2024-04-11] MEDS: PANTOPRAZOLE DR 20 MG TABLET PO (22:13)
[2024-04-11] MEDS: TAMSULOSIN 0.4 MG CAPSULE 0.8 MG PO (23:42)
[2024-04-11] MEDS: GABAPENTIN 600 MG TABLET PO (23:42)
[2024-04-11] MEDS: FINASTERIDE 5 MG TABLET PO (23:43)
[2024-04-12] VITALS: BP 144/82; PULSE 69; RESP 18; TEMP 36.6; O2SAT 97
[2024-04-12 06:00] VITALS: BP 141/79; PULSE 69; RESP 17; TEMP 36.6; O2SAT 94
--- NOTE | 2024-04-12 08:29 | PC.NURSE ---
Patient complained of cramping and then had a smear of stool in the toilet. He denies discomfort now and is sleeping. ML incision open to air and ava well approximated. O drainage noted. Patient only eats a small amount at meals.
[2024-04-12 09:00] VITALS: BP 119/69; PULSE 66; RESP 16; TEMP 36.7; O2SAT 99
[2024-04-12] MEDS: ENOXAPARIN 40 MG/0.4 ML SYRINGE SUBCUT (09:41)
[2024-04-12] MEDS: LORATADINE 10 MG TABLET PO (09:41)
[2024-04-12] MEDS: GABAPENTIN 300 MG CAPSULE PO (09:41)
--- NOTE | 2024-04-12 10:18 | CM.DPC ---
DCP Cont Reviewed chart. Patient discussed in multidisciplinary rounds. Patient remains on clear liquid diet, anticipate discharge when diet can be advanced to solids. Discharge home w/family anticipated w/close outpatient follow up. CM team following closely in case any discharge needs or concerns arise. JASON
--- NOTE | 2024-04-12 12:22 | DIET.CONS ---
Dietary Consultation Note Admission Date: 04/03/2024 14:06 Assessment: Nutrition f/u. On 04/08, pt vomited after being advanced to regular diet. Diet to clears for 3 days, has been advanced for lunch today to regular again. Po intake <50% of estimated energy needs for last 12 days. Diet recall past 12 days: Per previous visit: pt w/ <50% EER 03/31-04/03 Pt NPO/CLD 04/03-04/08 Lunch and dinner 100/25% on regular diet 04/08 NPO/CLD 04/09-04/12 Resumed regular 04/12 lunch Ht: 182.88 cm Wt: 88.451 kg BMI: 26.4 UBW: 84 kg per pt (per pt, has been actively trying to lose weight before admission) 95.481 kg on 11/22/23 per EMR (-7% weight loss in 5 months, non-significant) Last BM: 04/12/24 (04/12/24 07:06) MNA: 14 Gustavo Score: 21 Diet: 04/12/24 Lunch Regular [General (Regular) Diet] Diet Modifications: Food Texture: Level 7 - Regular Liquid Consistency: Level 0 - Thin Nutrition Percent Meal Consumed 0% 04/10/24 21:41 Percent Meal Consumed 75% 04/10/24 18:00 Percent Meal Consumed 50% 04/10/24 16:00 Labs: RBC 4.51 X10^6/uL (4.5-5.9) 04/09/24 11:13 Hgb 13.8 g/dL (13.5-17.5) 04/09/24 11:13 Hct 40.7 % (41-53) L 04/09/24 11:13 Creatinine 0.69 mg/dL (0.66-1.25) 04/09/24 11:13 Lactate 1.0 mmol/L (0.7-2.1) 04/03/24 11:55 Nutrition Diagnosis: Inadequate oral intake r/t alterations in GI tract aeb <50% of estimated energy needs for 12 days per pt report, on CLD/NPO, and recorded po intakes Interventions: 1. Protein supplementation if po intakes <75% Monitoring/Evaluations: po intakes Electronically Signed by: Natalee Mckeon 04/12/24 12:[address] [address]
--- NOTE | 2024-04-12 17:38 | PC.NURSE ---
Pt discharged home at 1726, escorted off floor in wheelchair accompanied by hospital staff. IV removed, discharge teaching completed including follow up appointments, worsening symptoms and hand catheter care. Directions regarding removal of leg bag vs. overnight bag reviewed with patient and . Pt has experience with leg bag and hand catheter in past, minimal questions answered. Patient left the floor with all belongings.
--- NOTE | 2024-04-12 20:28 | PM.DS.1 ---
History of Present Illness History of Present Illness Date Patient Seen: 04/12/24 Time Patient Seen: 20:29 Chief complaint: ABD PAIN T-3 Narrative: 73-year-old man with multiple abdominal surgeries admitted to the hospital for small-bowel obstruction. Discharge Providers Provider Date of admission: 04/03/24 14:06 Discharge Date: 04/12/24 Primary care physician: Sarah Yun MD Discharge provider: Dany Armendariz MD Summary Hospital Course Discharge Diagnosis: Small-bowel obstruction Hospital Course: Small-bowel obstruction initially managed non operatively but he failed to progress. He was taken to the operating room underwent an exploratory laparotomy and lysis of adhesions. Postoperatively he had a prolonged postoperative ileus which ultimately resolved. He had urinary retention and plan is to discharge home with Ashby catheter in urology follow up. Exam Vital Signs (past 8 hours): Oxygen Delivery Method Room Air Oxygen Flow Rate 0 Narrative Exam Narrative: General adult man alert oriented no acute distress, sleeping comfortably Objective Labs 04/09/24 11:13 04/09/24 11:13 PFSH Medical History CVA (cerebral vascular accident) GERD (gastroesophageal reflux disease) Hypertension Kidney stones Obstructive sleep apnea syndrome Primary insomnia Snoring Surgical History Hx of total knee arthroplasty S/P percutaneous patent foramen ovale closure (~2007) S/P total knee arthroplasty Family History Grandfather Stroke Sister PFO (patent foramen ovale) Social History household members: spouse Smoking Status: Former smoker alcohol intake: current Discharge Plan Discharge Plan Patient Disposition: Home Provider Discharge Comment: -Okay to shower tomorrow -Do not submerge wounds in water until seen in follow-up. -No lifting >10 lbs x 4 weeks. -Walking only for exercise for 4 weeks. -No driving while taking narcotics. -follow up with Urology for urinary retention Discharge orders & Medications Prescriptions: New ibuprofen 200 mg tablet 400 mg PO Q6H Qty: 60 0RF docusate sodium [Colace] 100 mg capsule 100 mg PO BID Qty: 40 0RF oxycodone 5 mg tablet 5 mg PO Q6H PRN (Reason: pain) Qty: 20 0RF Continued finasteride 5 mg tablet 5 mg PO DAILY loratadine 10 mg tablet 10 mg PO DAILY cholecalciferol (vitamin D3) 125 mcg (5,000 unit) capsule 125 mcg PO DAILY tramadol 50 mg tablet 50 mg PO BID PRN (Reason: pain) Qty: 30 0RF gabapentin 300 mg capsule 600 mg PO BEDTIME gabapentin 300 mg capsule 300 mg PO DAILY Rx Instructions: 300 mg orally take one cap daily in the morning and two at bedtime. acetaminophen [Tylenol Arthritis Pain] 650 mg tablet extended release 1,300 mg PO Q12H (DME) Resmed Airsense 10 CPAP Qty: 1 Patient Comments: Pressure: 6-12 cmH2O DME: Rx Instructions: As directed tamsulosin [Flomax] 0.4 mg capsule 0.8 mg PO DAILY Follow up/Referrals: Dale Gomes MD [Physician] - Sarah Yun MD [Primary Care Provider] - Diet/Activity/Treatments Diet: Diet as Tolerated Skin/Wound/Dressing Care Report to your healthcare provider any signs of infection, such as:: chills, fever, increased pain and unusual drainage Visit Report/Discharge Packet Instructions: Lysis of Adhesions, DI for Lysis of Adhesions, [facility]: Wound Care Stand Alone Forms: Patient Portal/API, Stroke Signs & Symptoms Discharge Data Primary Care Provider: Sarah Yun Quality VTE Deep Vein Thrombosis/Pulmonary Embolism Present on Admission: No
== END 2024-04-12 17:42 | disposition home or self-care (01) | DRG 336 ==
LOC: ED 14:06 → AC 14:07
PROVIDERS: Admitting Provider Surgery; Emergency Provider Emergency Medicine; Family Provider Internal Medicine; PCP Student in an Organized Health Care Education/Training Program; Referring Provider Emergency Medicine; Visit Provider Surgery
PROC: 0DN80ZZ Release Small Intestine, Open Approach (ICD-10-PCS; CPT 49000; principal; 2024-04-04 16:30)
DX: K56.52 Intestinal adhesions [bands] with complete obstruction (principal); K91.89 Other postprocedural complications and disorders of digestive system; K56.7 Ileus, unspecified; R33.9 Retention of urine, unspecified; Z87.891 Personal history of nicotine dependence
CPT/HCPCS: 36415; 71045; 74018; 74177; 80048; 80053; 81003; 81015; 82550; 83605; 83690; 84484; 85025; 87086; 93005; 93010; 96374; 96375; 96376; 99284; 99285; C9290; J0136; J0330; J1100; J1170; J1650; J2270; J2405; J2543; J2704; J3010; J3410; Q9967

== ENCOUNTER → 2024-09-05 19:39 | Outpatient (CLI) | payer MEDICARE, OTHER, SELFPAY ==
[2024-04-03 15:44] VITALS: BMI 26.4
--- NOTE | 2024-09-05 19:40 | DI.MRI.S_ITS ---
PROCEDURE: MR ELBOW LT W CON INDICATIONS: lesion of ulnar nerve TECHNIQUE: Noncontrast coronal proton density fast spin echo and T2 fast spin echo with fat saturation, axial and sagittal T1 spin echo and T2 fast spin echo with fat saturation through the elbow. COMPARISON: None. FINDINGS: Image quality: Excellent. Bones: The bone marrow signal is normal. There is no evidence of fracture or osteochondral lesion. Radiocapitellar alignment is normal. Joints: There is a small joint effusion. Bursae: There is no significant fluid in the bicipitoradial bursa. There is a trace amount of fluid in the olecranon bursa with subcutaneous edema (9/18). Ligaments: There is intermediate signal and thickening of the anterior band of the ulnar collateral ligament at the medial epicondylar attachment site (5/12). The radial collateral ligament and lateral ulnar collateral ligament are normal. Normal proximal radioulnar alignment implies an intact annular ligament. Tendons: The common flexor-pronator tendon origin is mildly thickened with intermediate signal (5/12). There is a small amount of fluid signal with mild thickening of the common extensor-supinator tendon origin (5/14). The distal biceps tendon, brachialis tendon and triceps tendon are normal. Nerves: Although present within the cubital tunnel, there is focal thickening and interfascicular edema of the ulnar nerve at the cubital tunnel (7/10) with loss of the fat signal surrounding the nerve. The radial and median nerves appear normal in size and signal. Musculature: Muscle bulk is preserved with no evidence of denervation. Other: Superficial to the ulnar nerve at the cubital tunnel, there is a teardrop shaped 0.9 x 1.7 x 2.5 cm T2 hyperintense collection with internal layering debris and a T2 hypointense peripheral rim (7/12; 06/19). This collection exerts mild mass effect on the ulnar nerve at the cubital tunnel. IMPRESSION: 1. Possible seroma versus hemorrhagic bursal fluid with mass effect on the ulnar nerve, resulting in focal neuritis at the cubital tunnel. 2. Chronic sprain of the proximal anterior band of the ulnar collateral ligament. 3. Chronic strain of the common flexor-pronator tendon origin. 4. Chronic strain with a partial tear of the common extensor -supinator tendon origin. 5. Minimal olecranon bursitis. Dictated by: Jm Giles M.D. on 09/06/2024 at 11:32 Approved by: Jm Giles M.D. on 09/06/2024 at 11:53
== END ==
PROVIDERS: Family Provider Internal Medicine; PCP Student in an Organized Health Care Education/Training Program; Referring Provider Orthopaedic Surgery; Visit Provider Orthopaedic Surgery
DX: G56.22 Lesion of ulnar nerve, left upper limb (principal); S53.442A Ulnar collateral ligament sprain of left elbow, initial encounter; S56.212A Strain of other flexor muscle, fascia and tendon at forearm level, left arm, initial encounter; S56.512A Strain of other extensor muscle, fascia and tendon at forearm level, left arm, initial encounter
CPT/HCPCS: 73221

== ENCOUNTER → 2024-12-03 13:25 | Outpatient (CLI) | payer MEDICARE, OTHER, SELFPAY ==
[2024-04-03 15:44] VITALS: BMI 26.4
[2024-12-03 14:54] LABS: Prostate Specific Antigen 1.19 ng/mL (0.10-4.00)
== END ==
LOC: LAB 13:25
PROVIDERS: Family Provider Internal Medicine; PCP Student in an Organized Health Care Education/Training Program; Referring Provider Nurse Practitioner; Visit Provider Nurse Practitioner
DX: N40.1 Benign prostatic hyperplasia with lower urinary tract symptoms (principal)
CPT/HCPCS: 36415; 84153

== ENCOUNTER → 2025-01-01 12:04 | Outpatient (CLI) | payer MEDICARE, OTHER, SELFPAY ==
[2024-04-03 15:44] VITALS: BMI 26.4
--- NOTE | 2025-01-01 12:06 | DI.RAD.S_ITS ---
PROCEDURE: XR KNEE LT 3V INDICATIONS: Knee pain, requested by ortho TECHNIQUE: 3 views of the knee were acquired. COMPARISON: [facility], CR, XR KNEE RT 3V, 06/10/2022, 22:28. FINDINGS: Bones: 3.3 cm broad-based exostosis projects from the lateral aspect of the distal femoral metaphysis. Second 1.3 cm exostosis projects from the lateral femoral condyle. Joints: Total knee prosthesis is anatomically aligned without evidence of loosening or infection. Small effusion noted. Soft tissues: Normal IMPRESSION: Knee prostheses anatomically aligned. Small effusion Exostosis projecting from the distal lateral femur Dictated by: Boaz Navas M.D. on 01/02/2025 at 12:29 Approved by: Boaz Navas M.D. on 01/02/2025 at 12:31
--- NOTE | 2025-01-01 12:06 | DI.RAD.S_ITS ---
PROCEDURE: XR KNEE RT 3V INDICATIONS: Knee pain, requested by ortho TECHNIQUE: 3 views of the knee were acquired. COMPARISON: [facility], CR, XR KNEE RT 3V, 06/10/2022, 22:28. FINDINGS: Bones: There are no osseous abnormalities. Joints: Total knee prosthesis is anatomically aligned without evidence of loosening. Moderate effusion noted. There is slight lateral patellar subluxation. Effusion. Slight lateral patellar subluxation Soft tissues: Normal IMPRESSION: Moderate effusion. Dictated by: Boaz Navas M.D. on 01/02/2025 at 12:31 Approved by: Boaz Navas M.D. on 01/02/2025 at 12:32
== END ==
PROVIDERS: Family Provider Internal Medicine; PCP Student in an Organized Health Care Education/Training Program; Referring Provider Student in an Organized Health Care Education/Training Program; Visit Provider Student in an Organized Health Care Education/Training Program
DX: M25.462 Effusion, left knee (principal); M25.461 Effusion, right knee; M89.9 Disorder of bone, unspecified; M25.561 Pain in right knee; M25.562 Pain in left knee; G89.29 Other chronic pain; Z96.659 Presence of unspecified artificial knee joint
CPT/HCPCS: 73562

== ENCOUNTER → 2025-03-13 13:40 | Outpatient (CLI) | payer MEDICARE, OTHER, SELFPAY ==
[2024-04-03 15:44] VITALS: BMI 26.4
--- NOTE | 2025-03-13 13:43 | DI.MRI.S_ITS ---
PROCEDURE: MR SHOULDER LT WO CON INDICATIONS: eval soft tissue TECHNIQUE: Noncontrast oblique coronal T2 fast spin echo with fat saturation, oblique sagittal T1 spin echo and T2 fast spin echo with fat saturation, axial T1 spin echo and T2 fast spin echo with fat saturation through the shoulder. COMPARISON: [facility], CR, XR SHOULDER LT 2+ VIEWS, 03/05/2025, 13:27. FINDINGS: Image quality: Excellent. Rotator cuff: In the supraspinatus, there is low-grade, bursal sided tear at the mid footprint (08:14 and 15). Additional low-grade articular sided tear at the posterior footprint of the supraspinatus. Moderate tendinosis of the supraspinatus. Mild tendinosis of the infraspinatus. The teres minor is unremarkable. Moderate tendinosis of the subscapularis, with low-grade interstitial tear. No muscle edema or fatty atrophy. Bones and bursae: Severe degenerative changes of the acromioclavicular joint with inferior projecting osteophyte. Type 2 acromion. No os acromiale. Large subacromial/subdeltoid bursitis. Marrow signal of the proximal humerus and the glenoid is normal for age. Mild superior subluxation of the humeral head. Mild degenerative changes of the glenohumeral joint. Capsule and soft tissues: Circumferential labral tear. Small paralabral cyst about the anterior labrum, and about the anterior inferior labrum. Severe tenosynovitis of the extra-articular biceps tendon. Low-grade interstitial tear of the proximal extra-articular biceps tendon. The extra-articular biceps tendon is medially dislocated into the interstitial tear of the subscapularis. Moderate tendinosis of the distal intra-articular biceps tendon. Small glenohumeral effusion. Mild subcoracoid bursitis. No intra-articular body. IMPRESSION: 1. Severe degenerative changes of the acromioclavicular joint. Large subacromial/subdeltoid bursitis. 2. Low-grade tear with moderate tendinosis of the supraspinatus and the subscapularis. 3. Circumferential labral tear with small paralabral cysts. 4. Severe tenosynovitis of the extra-articular biceps tendon with low-grade tear. Medial dislocation of the extra-articular biceps tendon into the interstitial tear of the subscapularis. Moderate tendinosis of the distal intra-articular biceps tendon. Dictated by: Janiya Orta M.D. on 03/13/2025 at 16:50 Approved by: Janiya Orta M.D. on 03/13/2025 at 17:03
== END ==
LOC: MRI 13:41
PROVIDERS: Family Provider Internal Medicine; PCP Student in an Organized Health Care Education/Training Program; Referring Provider Orthopaedic Surgery; Visit Provider Orthopaedic Surgery
DX: M75.112 Incomplete rotator cuff tear or rupture of left shoulder, not specified as traumatic (principal); M75.52 Bursitis of left shoulder; S43.432A Superior glenoid labrum lesion of left shoulder, initial encounter; S46.212A Strain of muscle, fascia and tendon of other parts of biceps, left arm, initial encounter; M75.22 Bicipital tendinitis, left shoulder; M25.512 Pain in left shoulder; G89.29 Other chronic pain
CPT/HCPCS: 73221

== ENCOUNTER → 2025-03-25 13:47 | Outpatient (CLI) | payer MEDICARE, OTHER, SELFPAY ==
[2024-04-03 15:44] VITALS: BMI 26.4
== END ==
PROVIDERS: PCP Student in an Organized Health Care Education/Training Program; Referring Provider Orthopaedic Surgery Adult Reconstructive Orthopaedic Surgery; Visit Provider Orthopaedic Surgery Adult Reconstructive Orthopaedic Surgery
DX: M25.561 Pain in right knee (principal); M25.562 Pain in left knee; Z96.653 Presence of artificial knee joint, bilateral
CPT/HCPCS: 36415; 73564; 85651; 86140; 99213

== ENCOUNTER → 2025-04-21 09:05 | Outpatient (CLI) | payer MEDICARE, OTHER, SELFPAY ==
[2024-04-03 15:44] VITALS: BMI 26.4
--- NOTE | 2025-04-21 09:06 | DI.NM.S_ITS ---
PROCEDURE: NM BONE 3 PHASE RADIOPHARMACEUTICAL: 19.7 mCi Tc-99m MDP IV. INDICATIONS: s/p knee replacement TECHNIQUE: Multiple bone scintigrams were obtained after intravenous injection of Tc-99m MDP, including flow, blood pool, and delayed images centered to the region of interest. COMPARISON: [facility], CR, ORTHO-XR KNEE WB BILAT, 03/25/2025, 9:53. FINDINGS: Mildly asymmetric flow and blood pool images, greater to the right knee. This is particularly seen at the lateral perihardware region. Moderate periarticular uptake is seen surrounding the knee arthroplasties bilaterally, greatest at the patella bilaterally. Findings are slightly more intense on the right. IMPRESSION: Mildly positive right-sided three-phase bone scan suggestive of inflammation, for example from loosening, or infection. Less intense uptake seen on the left is nonspecific for post surgical changes versus loosening. Dictated by: Henri Morales M.D. on 04/21/2025 at 16:45 Approved by: Henri Morales M.D. on 04/21/2025 at 16:47
== END ==
PROVIDERS: PCP Student in an Organized Health Care Education/Training Program; Referring Provider Orthopaedic Surgery Adult Reconstructive Orthopaedic Surgery; Visit Provider Orthopaedic Surgery Adult Reconstructive Orthopaedic Surgery
DX: T84.032D Mechanical loosening of internal right knee prosthetic joint, subsequent encounter (principal); T84.033D Mechanical loosening of internal left knee prosthetic joint, subsequent encounter
CPT/HCPCS: 78315; A9503

== ENCOUNTER → 2025-04-24 16:51 | Outpatient (CLI) | payer MEDICARE, OTHER, SELFPAY ==
[2024-04-03 15:44] VITALS: BMI 26.4
--- NOTE | 2025-04-24 17:13 | EKG_ITS ---
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
[2025-04-24 17:16] LABS: Add Manual Diff / Slide Review NO; Hematocrit 41.4 % (41-53); Hemoglobin 13.8 g/dL (13.5-17.5); Lymphocytes Absolute Auto 1400 /uL (1100-4500); Mean Corpuscular HGB Conc 33.4 % (30-36); Mean Corpuscular Hemoglobin 31.7 PG (26-34); Mean Corpuscular Volume 95.1 fL (80-100); Platelet Count 165 X10^3/uL (150-400)
--- NOTE | 2025-04-24 17:32 | RT ---
1728 - Called Dr. [facility], spoke to Raghav and left a message regarding pt's outpt EKG today showing Marked sinus bradycardia HR 40. The pt was in alert and oriented, in no distress, no cardiac symptoms, lightheadedness or dizziness. This RT did inform pt to followup with his Doctor regarding these findings.
[2025-04-24 17:33] LABS: Hemoglobin A1C% w Est Avg Glu 5.8 % (4.0-6.0)
[2025-04-24 17:41] LABS: Albumin 4.0 g/dL (3.5-5.0); Blood Urea Nitrogen 21 mg/dL (9-20); Calcium 9.3 mg/dL (8.4-10.2); Carbon Dioxide 26 mmol/L (22-32); Chloride 103 mmol/L (98-107); Estimated Glomerular Filt Rate > 60 mL/min (>60); Glucose 103 mg/dL (70-99); HEMOLYSIS < 15 (0-50); Potassium 4.5 mmol/L (3.4-5.1); Sodium 137 mmol/L (137-145)
[2025-04-24 17:48] LABS: Prealbumin 33.3 mg/dL (17.6-36.0)
[2025-04-24 17:52] LABS: Vitamin D 25 Hydroxy (D3) 51.2 ng/mL (30.0-100.0)
== END ==
PROVIDERS: PCP Student in an Organized Health Care Education/Training Program; Referring Provider Orthopaedic Surgery Adult Reconstructive Orthopaedic Surgery; Visit Provider Orthopaedic Surgery Adult Reconstructive Orthopaedic Surgery
DX: Z01.818 Encounter for other preprocedural examination (principal); E11.9 Type 2 diabetes mellitus without complications; E55.9 Vitamin D deficiency, unspecified; Z01.812 Encounter for preprocedural laboratory examination
CPT/HCPCS: 36415; 80048; 82040; 82306; 83036; 84134; 85025; 93005; 99215

== ENCOUNTER → 2025-06-09 12:13 | Outpatient (CLI) | payer MEDICARE, OTHER, SELFPAY ==
[2024-04-03 15:44] VITALS: BMI 26.4
[2025-06-09 13:04] LABS: Appearance Urine UA CLEAR; Bilirubin Urine UA NEGATIVE (NEGATIVE); Color Urine UA YELLOW; Glucose Urine UA NEGATIVE (Negative); Ketones Urine UA NEGATIVE (NEGATIVE); Leukocyte Esterase Urine UA NEGATIVE (NEGATIVE); Nitrite Urine UA NEGATIVE (Negative); Occult Blood Urine UA NEGATIVE (Negative); Protein Urine UA NEGATIVE (Negative); Specific Gravity Urine UA 1.010 (1.000-1.035); Urobilinogen Urine UA 0.2 E.U./dL (0.2); pH Urine UA 5.5 (4.5-8.0)
[2025-06-09 13:14] LABS: Culture Indicated Urine Cult Not Indicated
== END ==
PROVIDERS: PCP Student in an Organized Health Care Education/Training Program; Referring Provider Physician Assistant Surgical; Visit Provider Physician Assistant Surgical
DX: N39.0 Urinary tract infection, site not specified (principal)
CPT/HCPCS: 81001

== ENCOUNTER 2025-06-12 06:03 | Inpatient (IN) | payer MEDICARE, OTHER, SELFPAY ==
[2024-04-03 15:44] VITALS: BMI 26.4
[2025-05-30 09:36] VITALS: BMI 26.4
[2025-06-12] VITALS (11 sets, daily range): BP systolic 103–148; BP diastolic 60–76; PULSE 60–87; RESP 14–20; TEMP 35.8–37; O2SAT 92–100; BMI 26.4; BMI 106.3
--- NOTE | 2025-06-12 | PATH_ITS ---
[facility] Accession Number: [id number] No. of containers..01 Tissue . 01 Material submitted: . briceño - RIGHT BRICEÑO . 01 Clinical history: . SOFT TISSUE MASS . 01 Diagnosis: SOFT TISSUE, EXCISION: Fibrous tissue-lined benign cyst. See comment. MRV 06/23/2025 1339 Local . 01 Comment: The histologic features are nonspecific and may represent a benign pseudocyst, a synovial/bursal cyst amongst other etiologies. Clinical correlation is recommended. . 01 Electronically signed: . Padmini Craig MD, Pathologist NPI- [id number] . 01 Gross description: . Received in formalin with two identifiers and right briceño soft tissue mass, is an irregular howell to yellow soft tissue fragment 5.7 x 5.4 x 2.5 cm. Inked blue and sectioned to reveal a cystic structure 2.9 cm in greatest dimension filled with howell serous fluid. The alcantar are smooth and average 0.1 cm thick. Yellow to howell soft tissue is attached. Forms Builder sections are submitted in cassette A1. ([id number]) /JUSTINE 06/18/20252054 Local . 01 Pathologist provided ICD-10: T84.032A . 01 CPT . 283682 Specimen Comment: A courtesy copy of this report has been sent to [facility] Performed at: [address] [address], [place], [place] [id number] MD Noel Todd MD Phone: [phone]
--- NOTE | 2025-06-12 07:14 | PM.PREOP ---
Pre-operative Note Interval Note History & Physical reviewed/Exam performed by Physician: Yes Changes to H&P: No
[2025-06-12] MEDS: LACTATED RINGERS 1,000 ML 42 ML IV ×2 (07:15→10:18)
[2025-06-12] MEDS: TRANEXAMIC ACID 1,000 MG in SODIUM CHLORIDE 0.9% 100 ML 200 MG IV (08:15)
--- NOTE | 2025-06-12 09:05 | SUR.OPER ---
Supine on padded OR bed, head on pillow, arms secured on padded arm boards at <90 degrees abduction, legs uncrossed, safety belt at thigh, tape over blanket over left leg. large hip convenience store clerk positioner on patient right side. gel pad under left leg protecting from hand tube. intraoperative knee positioner and green pads used.
[2025-06-12] MEDS: VANCOMYCIN 1,000 MG VIAL 1000 MG TOP (09:19)
[2025-06-12] MEDS: KETOROLAC 30 MG/ML VIAL INJ (12:24)
--- NOTE | 2025-06-12 13:48 | P.OP_ITS ---
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 Post-op diagnosis: same Procedure & Clinicians Procedure: Revision right total knee arthroplasty utilizing robotic assistance with intraosseous administration of vancomycin and excision of soft tissue mass from proximal medial tibia Same procedure(s) as scheduled: Yes Surgeon: Sky Faulkner Sales Enablement Manager: Mary Ellen Carpenter Anesthesia Type: General, Spinal and Local Operative Notes Findings: Completely de bonded patellar component with impingement of lateral patellar facet on femoral component and loosening of the tibial component Closure Type: primary Specimen(s): other (2 soft tissue specimens sent for culture. An additional soft tissue specimen sent for pathology) Applied: implant(s) Estimated Blood Loss (mL): 150 Tourniquet time (min): 240 Procedure in detail: 1. Laterality Revision Total Knee Arthroplasty Using [employer] System (73495) 2. Robotic Assistance Using [employer] System (S2900) 3. Intraosseous Administration of Vancomycin (22431) 4. Excission of Benign-Appearing Soft Tissue Mass from Proximal Medial Tibia (49888) Implants: * Size 6 Legion Revision Oxinium Femoral Component with 5 mm distal lateral and L-shaped 10 mm distal and posterior medial augments and 14 mm x 160 mm stem * Size 18 Femoral Cone * Size 6 Legion Revision Tibial Component with finned 15 mm distal augments and 14 mm x 120 mm stem * Size 18 short Tibial Cone * Size 15 mm Yen II Constrained Polyethylene Insert * 35 mm Patella Procedure Summary: This 74-year-old male patient was seen in my clinic for a total knee arthroplasty implanted remotely. He had radiographic features on his tibial base plate demonstrating progressive lucencies underneath anterior aspect of the tibial base plate on serial radiographs dating back as far as 2017. Additionally I obtained a bone scan which demonstrated markedly increased uptake in the patellar component. There was obvious radiographic impingement of the residual lateral patellar facet against the femoral component but no obvious radiographic features of loosening so during today's procedure I closely inspected the patellar component and actually found that it was completely loose as it disengaged entirely from the underlying cement when inspected it with a River[place]. I therefore implanted a new patellar button recycling the original holes from the primary surgery. I did find the tibial component to be loose as well as the cement had de bonded from the bone and I was able to free it up particularly anteriorly from the underlying bone. Component removal did result in some bone loss in the posterior medial distal femur and in the posterior lateral tibia. Robotic assistance was utilized to plan for a revision surgery as outlined below. A soft tissue mass was encountered during dissection for initial exposure and that was excised and sent for pathological analysis. The soft tissue mass was in the surgical field and was in the fascia between the tibia in the overlying soft tissues in the proximal medial tibia. It was well- circumscribed and completely encapsulated with fascia. It measured approximately 2 cm x 4 cm and was sent en bloc as a gross specimen. Procedure in Detail: This patient was seen preoperatively and evaluated for knee pain which was refractory to numerous nonoperative treatment modalities. After evaluation they were determined to be an appropriate candidate for revision knee arthroplasty. The risks and benefits of continued nonoperative management versus operative management were discussed at length and all of the patient?s questions were answered. With this understanding of the risks inherent to the procedure, the patient elected to move forward with operative management. Following preoperative optimization, the patient was scheduled for surgery. The patient was met in the preoperative holding area the day of the procedure and all questions were answered. The patient?s nares were swabbed in order to decolonize them from MRSA. Informed consent was signed and the right limb was marked with indelible ink.? The patient was brought back to the operating room where anesthesia was induced. The patient was transferred to the operating table and all bony prominences were padded. The operative site was prepped and draped in the usual sterile fashion. A second prep stick was utilized following drape placement. The incision was marked corresponding to the medial aspect of the tibial tubercle and the patella. Ioban was wrapped circumferentially around the knee. Prior to incision, tranexamic acid and cefazolin were administered. Templating images were displayed. A timeout procedure was performed verifying the patient?s identity, medical comorbidities, allergies, relevant medications, anesthesia type and the surgical plan. All present were in agreement. The assistance of a physician materials assistant was required for positioning, room setup, soft tissue retraction and wound closure. Without this assistance, the procedure would have been significantly more challenging and time consuming.?? The tourniquet was inflated prior to incision. I excised the old scar and made an anterior incision over the knee, dissected through the subcutaneous tissues and identified the lateral border of the VMO. Medial and lateral soft tissue flaps were developed. An intraosseous needle was introduced into the tibia and dilute vancomycin was infiltrated into the bone in order to fill the surgical field with dilute vancomycin via backflow from the tourniquet. A medial parapatellar arthrotomy was performed ensuring that adequate capsular tissue would remain for closure at the conclusion of the procedure. The knee was brought into extension and the medial soft tissues were released off the joint line of the tibia. Tissue overlying the distal anterior femur was released to allow for later assessment for anterior notching but left in place. A portion of the retropatellar fat pad was excised while protecting the patellar tendon. The patella was everted. The patella was inspected closely. I found that there was bone laterally which was very clearly impinging on the femoral component and had become a burnished. I removed this using a saw performing a lateral facetectomy. I then inspected the bone cement interface with a River[place] and the patellar component fell off. This is pictured above. The patella was completely loose and was not attached in any portion to the bone and did not bring any cement with it when it fell off. During my exposure I encountered a soft tissue mass in the medial proximal tibia which was inside of the surgical field. It was just distal and medial to the tibial tubercle and adherent to the overlying fascia. It was well-circumscribed and completely encapsulated. It had no infiltrative features. It was easily compressible and not firm. I was able to bluntly dissect around it and free it from the overlying fascia and remove it as a single specimen. It measured approximately 2 cm x 4 cm. It was inside of the surgical field today and would have been inside the surgical field of the prior total knee arthroplasty as well. I immediately had the circulating nurse inform the patient's during the surgery of the excision of the soft tissue mass which was a part of the surgical field. I also discussed it with the patient immediately after the procedure and he reported that he had had some symptoms from the swelling in that area. The specimen was sent for pathological analysis. I inserted pins for the robotic array into the femur and tibia in areas which would eventually be within the cement mantle of the area were stems would be placed during final component implantation. I registered the robotic array using the [employer] robot and mapped the prior total knee arthroplasty using the robotic system to obtain the parameters of the previous total knee arthroplasty. ?I then took the knee through stressed and unstressed range of motion to evaluate the relative tension of the medial and lateral sides throughout a full arc of motion and constructed a plan for an eventual revision total knee arthroplasty that would result in a well-balanced knee. This involved placing the tibial component in 3? of varus and external rotation of 5? on the femur. I excised the medial and lateral gutters and sent these for culture. I then proceeded with component removal. I in with removal of the femoral component. The femoral component was well fixed. A cemented journey 2 femur. I utilized a microsagittal saw to disrupt the interface between the bone and the cement and then passed osteotomes behind it. I was able to free it up throughout the entire femoral component and then used a back slapping device to remove it. During this process I noted that there was bone loss posterior and medial on the distal femur which later would compensate for by using an L-shaped augment which would replace 10 mm both distally and posteriorly on the medial portion of the femoral component. I removed the polyethylene insert and then proceeded with tibial component removal. I hyperflexed and externally rotated the tibia and began working at the interface between the base plate in the tibia. I found that throughout the entirety of the anterior portion of the component the cement had debonded from the bone but remained well fixed to the tibia. There was an interface between the cement and the bone which had filled in with fibrous tissue which I was able to gain access to using an osteotome. I then passed a single sided reciprocating saw around the posterior aspect of the tibia. There was bone that remained attached posteriorly in the tibial component. With the tibial component and the femoral component both removed I removed loose cement. Based on the plan for the eventual revision total knee arthroplasty which had been planned on the robotic system I then burred the distal femur. This involved defining the defects which showed as anticipated that the area where there had been some bone loss from femoral component removal would require augments. I planned for a 5 mm distal augment on the lateral side and 10 mm augments both posteriorly and distally on the medial side. I burred in the corresponding regions for these using a size 7 template. I then moved onto the tibia. ?I initially removed the cement plug extending down the tibial canal by initially burring through it and then using osteotomes to fracture it before removing them with a rongeur. ?Once I had removed all of the cement in the tibial canal I then used the robotic system to plan the trajectory of a tibial cut which would match the resection that had been planned using the robotic system based on the soft tissue parameters of the knee. ?I did add depth to the tibial cut to ensure that I got a good bony interface for the eventual cementation of a revision total knee and planned to utilize a finned base plate augment to substitute for the bone loss. ?After pinning this in place cut the bone interface using a sagittal saw while protecting the soft tissues around the knee with 3 retractors. ?This also removed the vast majority of the cement at the interface with the bone. I then trialed the primary implants for the tibia and femur respectively both manually and robotically. ?This involved stressing in varus and valgus in both flexion and extension and testing for flexion instability as well as passive range of motion of the knee in flexion and extension. I asessed this both manually and using the robotic system. I found that the femoral resection that the robotic system had prepared not appear to a line perfectly with the corresponding femoral trials. It impinged significantly anteriorly and did not sit down entirely on the anterior chamfer. After careful inspection of this I utilized a sagittal saw to make a freehand cut which would correspond to the trajectory of the femoral component based on the position at which it was sitting based on the trajectory that had been prepared for it by the augments. I eventually downsize the femoral component from a 7 to a 6 in order to improve the bony contact and found that this resulted in better implant positioning relative to the anterior chamfer. Primary trials were again placed and I assessed it using the robotic system and found that it had appropriate balance medially relative to laterally and extension relative to flexion. I adjusted up to a 15 mm tibial augment to ensure maximum flexibility with polyethylene insert at the conclusion of the case. I then removed the robotic arrays from the femur and tibia. I then prepped for cones in both the femur and the tibia. ?On the femoral side this involved placement of a primary knee trial, cutting for a box, placing a small rigid Reamer through the femoral trial, using a boss Reamer and subsequently a cone Reamer, and broaching on the femur with a corresponding size broach. ?On the tibia I freehand reamed to plan a final implant placement for the tibial cone which would match the joint line obliquity of the tibial resection. ?I placed cone trials in both the femur and the tibia and then placed implant trials which included the base plate augment on the tibia and the distal augments on the femur as well as stems for my planned stem sizes on the tibia and femur respectively. ?I again manually trialed and found that the components all fit appropriately and that the knee was appropriately balanced medial to lateral and with regards to flexion and extension throughout a full arc of motion. ?This involved stressing in varus and valgus in both flexion and extension and testing for flexion instability as well as passive range of motion of the knee in flexion and extension. I asessed this both manually and using the robotic system. ?I was satisfied with all parameters. Cones were inserted into the tibia and femur. The bony ends were irrigated and cement was prepared. Cement was placed on the entirety of the undersurface of both the tibial and femoral components. Cement was placed onto the dry tibia and pressurized into the cancellous bone. Cement was placed down the tibial canal ensuring that it did not interfere with the interface between the cone and the bone. I impacted the tibial component into place. Cement was removed. The tibia was reduced underneath the femur. A separate batch of cement was prepared. I placed cement onto the dry surface of the resected femur and down the canal. I placed the femoral component as well as the intended polyethylene trial. Cement was removed from around the femur. I brought the knee into extension and manually pressurized the construct by pushing on the heel while the cement dried. The patella was . The knee was bathed in a dilute mixture of betadine and peroxide. A mixture of Ropivacaine, Epinephrine and Toradol was infiltrated throughout the soft tissues into structures including the VMO, patellar tendon, quadriceps tendon, MCL and femoral periosteum. The knee was copiously irrigated with pulse lavage. Once cement had been allowed to dry the knee was again trialed. Range of motion was assessed by ensuring the knee could achieve full extension and assessing maximum passive knee flexion by elevating the femur and allowing the heel to passively fall towards the buttock. Gap symmetry was assessed by stressing the medial and lateral compartments in both extension and flexion. Laxity was assessed in both extension and flexion and the polyethylene trial was adjusted with shims as necessary. Patellar tracking was assessed with knee flexion. The tourniquet was let down and the polyethylene trial was removed. I inspected the knee inspected for excess cement and any residual bleeding. Once hemostasis was achieved I inserted the final polyethylene and ensured appropriate engagement of the dovetail locking mechanism.?? I infiltrated the soft tissues throughout the knee including the femoral periosteum, MCL, patellar tendon, VMO, quadriceps tendon with a dilute mixture containing epinephrine local anesthetic and Toradol. The arthrotomy was closed with non-absorbable interrupted suture ensuring that this extended to the top of the arthrotomy. This was backed up with running barbed suture throughout the arthrotomy. The skin was closed with 2-0 and 3-0 sutures. Surgical glue was applied and a Artemio incisional wound vacuum dressing was placed.?The sponge, instrument and needle counts were reported as being correct at the end of the case. The patient was transferred from the operating table back to a stretcher. The patient emerged from anesthesia without difficulty and was taken to the PACU in a stable condition.? Plan for aftercare: * Weightbearing as tolerated * Aspirin 81 twice per day for DVT prophylaxis * Follow pathological analysis for results of the soft tissue mass that was within the surgical field today as well as culture results from the soft tissue specimens sent for culture * The Artemio wound vac dressing should remain in place until clinic followup. The battery will after a week at which point the cord can be removed and it can be used as a normal dressing * Multimodal pain regimen with no IV opioids ordered * Anticipate discharge home tomorrow * Follow up at [facility] in 2 weeks for wound check Complications: none Post-operative Condition: stable Disposition: PACU
--- NOTE | 2025-06-12 13:57 | DI.RAD.S_ITS ---
PROCEDURE: XR KNEE RT 1TO2V INDICATIONS: RIGHT KNEE REVISION TECHNIQUE: 2 view(s) of the knee acquired. COMPARISON: [facility], ZACHARY, XR KNEE LT 3V, 01/01/2025, 12:07. [facility], ZACHARY, XR KNEE RT 3V, 06/10/2022, 22:28. FINDINGS: Bones: Patient is status post knee joint arthroplasty. Hardware components are in expected positions. Visualized bony structures are intact. Soft tissues: Overlying postoperative changes are noted. IMPRESSION: Expected post-operative appearance of a revision right knee arthroplasty. Dictated by: Rene Walker M.D. on 06/12/2025 at 14:55 Approved by: Rene Walker M.D. on 06/12/2025 at 14:55
--- NOTE | 2025-06-12 13:57 | SUR.PHASEI ---
Report given to Richard Fitzpatrick RN
[2025-06-12] MEDS: ACETAMINOPHEN 325 MG TABLET 650 MG PO ×2 (14:44→20:28)
[2025-06-12] MEDS: LACTATED RINGERS 1,000 ML 100 ML IV ×2 (14:45→20:25)
[2025-06-12 14:56] LABS: Hematocrit 39.0 % (41-53); Hemoglobin 13.3 g/dL (13.5-17.5)
--- NOTE | 2025-06-12 16:31 | PT.IIE ---
Current Diagnoses Mechanical loosening of internal right knee prosthetic joint, initial encounter (06/12/25) Surgery Performed Operation Date: 06/12/25 07:45 Actual Procedures p right total knee arthroplasty(Right) - Sky Faulkner MD s Excision Lesion/Mass Extremity(Right) - Sky Faulkner MD Surgical History (Last Updated 05/30/25 @ 14:43 by Amisha Mckeon, RN) History of bilateral carpal tunnel release History of bowel resection (02/28/95) History of epidural steroid injection into lumbar spine (12/28/17) History of prostate surgery (~2018) History of total left knee replacement (02/09/17) Hx of anterior cruciate ligament surgery (02/09/17) Hx of appendectomy Hx of exploratory laparotomy (03/2024) Hx of right cataract extraction S/P lumbar laminectomy (02/07/18) S/P percutaneous patent foramen ovale closure (~2007) 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) [place] teeth removed (06/03/71) Medical History (Last Updated 05/30/25 @ 10:55 by Amisha Mckeon, RN) LUIS FERNANDO (acute kidney injury) Bowel perforation (1994) CVA (cerebral vascular accident) (04/2020) Diverticulitis GERD (gastroesophageal reflux disease) Hypertension Intention tremor Kidney stones 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 Activities of Daily Indep Living and IADL's Social History Household Members spouse Living Arrangements House Number of Floors ( Two Floors Floors) Number of Stairs To 0 Enter/Railing? Home Environment Standard Height Toilet Home Equipment Front Wheel Walker,Straight Cane,Crutches M2 PT-IP Current Condition Start: 06/12/25 16:24 Freq: NEEDED Status: Active Protocol: Document 06/12/25 16:24 KJ (Rec: 06/12/25 16:31 KJ [id number]) Physical Therapy Current Condition Current Condition Evaluation Date 06/12/25 Treatment Diagnosis Impaired mobility s/p R TKR revision Onset Date 06/12/25 M3 PT-IP Subjective Start: 06/12/25 16:24 Freq: NEEDED Status: Active Protocol: Document 06/12/25 16:24 KJ (Rec: 06/12/25 16:31 KJ [id number]) Subjective Physical Therapy Visit Type Type Initial Evaluation Visit Start Time 15:44 Visit Stop Time 16:10 Physical Therapy Visit Comments Patient Comments RLE is numb. Afraid of movement causing pain. Brought in ice machine from home. Patient Goals Avoid pain, go home Therapy Pain Assessment Pain When Pain Assessed At Rest Pain Present Pain Present Pain Reported Location Right Knee Intensity 4 Pain Management Apply Cold Techniques M5 PT-IP Objective Assessments Start: 06/12/25 16:24 Freq: NEEDED Status: Active Protocol: Document 06/12/25 16:24 KJ (Rec: 06/12/25 16:31 KJ [id number]) Gross Range of Motion Upper Extremity ROM Assessment Within Functional Limits Lower Extremity ROM Assessment Right Impaired Strength Upper Extremity Strength Assessment Within Functional Limits Lower Extremity Strength Assessment Right Impaired Ankle Bilat ankle plantar/dorsiflex WNL M6 PT-IP Treatment Start: 06/12/25 16:24 Freq: NEEDED Status: Active Protocol: Document 06/12/25 16:24 KJ (Rec: 06/12/25 16:31 KJ [id number]) Physical Therapy Treatment Exercises Exercises Ankle Pumps,Gluteal Sets,Quad Sets Education Education Provided Weight Bearing Status,Safety Other Treatments Other Treatment Instructed on incentive spirometer, UE flex/abd w/ Performed focused breathing M7 PT-IP Assessment and Plan Start: 06/12/25 16:24 Freq: NEEDED Status: Active Protocol: Document 06/12/25 16:24 KJ (Rec: 06/12/25 16:31 KJ [id number]) PT Summary Assessment and Plan Potential Rehabilitation Excellent Potential Status of Condition Evolving at Evaluation Summary Impairments Pain,ROM,Strength,Bed Mobility,Transfers,Gait Assessment Summary Pt still w/numbness in RLE due to complicated surgical procedure. Goals Bed Mobility Goal Standby Assistance Transfer Goal Contact Guard Assistance Gait Goal Contact Guard Assistance Gait Distance 20 Days to Meet Goals 3 Frequency of Treatment Frequency Of Twice a Day Treatment Treatment Plan Physical Therapy Bed Mobility Training,Transfer Training,Gait Training, Treatment Plan Therapeutic Exercise Other Progress to bed mobility, transfers, and ambulation. Pt Recommendations and does not have stairs outside the house and will be Next Treatment Focus staying on the first floor in the initial post op days. Weight Bearing Status Weight Bearing Weight Bear as Tolerated Status Recommendations To Nursing Amount of Assist 1 Person Assist Needed Discharge Recommendations PT Discharge Home with Assistance,Outpatient PT Recommendations Transportation Needs Private Vehicle at Discharge
[2025-06-12] MEDS: PROPRANOLOL 10 MG TABLET 30 MG PO (20:28)
[2025-06-12] MEDS: DOCUSATE 100 MG CAPSULE PO (20:28)
[2025-06-12] MEDS: ASPIRIN EC 81 MG TABLET PO (20:28)
[2025-06-13] MEDS: ACETAMINOPHEN 325 MG TABLET 650 MG PO ×3 (01:44→15:29)
[2025-06-13] MEDS: CYCLOBENZAPRINE 10 MG TABLET PO (03:26)
[2025-06-13 08:20] VITALS: BP 118/59; PULSE 47; RESP 15; TEMP 36.1; O2SAT 93
--- NOTE | 2025-06-13 08:41 | CM.DANOTE ---
Initial DCP Assessment Visit Note Reviewed EMR and team rounds for pt's medical status and updates. Met with pt at bedside to introduce self and role, pt was found to be alert/oriented, sitting upright and eating his breakfast. He states that his pain is well controlled, and that he's looking forward to going home elen. Pt lives independently with his spouse in their own home here in [place]. His spouse will transport him at d/c, as well as provide postop care at home. Payor: Medicare Attending: Dr. Faulkner Pt is a 74 year-old M post-op day 1 from a R-TKA revision surgery. He had a prior R-TKA surgery that now has loosing of the prosthetic hardward. Plan was made for surgical fixation. Pt did well postoperatively with no complications. He has a plan for OP PT, f/u Ortho appt., and shared that he has all of the necessary home medical equipment ready for his recovery needs. He declines any CM d/c assistance or resource needs at this time. Discharge Planning/Care Management CM Discharge Assessment Start: 06/12/25 06:35 Freq: Status: Active Protocol: Document 06/13/25 08:39 DPL (Rec: 06/13/25 08:41 DPL [id number]) Discharge Planning Assessment Assigned Discharge ALISON [place] Loop Puller Provider Kaushik Insurance Medicare Advance Directives? Yes Advance Directives Yes on File History Provided By Patient,Medical Record Has Patient been No admitted in last 30 days? Prior Living House Arrangements Household Members spouse Type of Drives own vehicle transporation used prior to admit Independent with ADL Yes 's Is patient alert and Yes oriented? Comment N/A Caregiver for No Another Community Services Physical Therapy used prior to admission: DME Already Rented / Bath Bench,Elevated Toilet Seat,FWW / Walker Owned Comment N/A Patient/Family OP PT Therapy Preference Barriers to No Discharge Discharge Plan Home Transportation Spouse Arrangement Referrals Initiated None needed Whiteboard Updated Yes in Patient Room with name and ext. # of Veneer Jointer Review Status In Process Please Provide Date 06/13/25 Initial DC Assessment Was Performed Pre-Anesthesia Assessment Start: 05/30/25 09:36 Freq: Status: Active Protocol: Document 05/30/25 09:36 LB (Rec: 05/30/25 11:11 LB [id number]) Pre-Anesthesia Assessment PAC Comment 05/30/25 Phone assessment. Patient Information Phone Assessment Reviewed Via Assessment Completed Patient With Diagnostic Results BMP/CMP,CBC,EKG,Urinalysis Comment 04/24/25 at . Primary Care Sarah Yun Provider Medical Clearance Yes Received Seen Specialist in Yes Last 12 Months Specialist Seen Orthopedist Primary Language Faroese Preferred Language Faroese Coring Machine Operator Required No Height 182.88 cm Weight 88.451 kg Body Mass Index (BMI 26.4 ) Hearing Ability Normal Visual Impairment Partially Limited Visual Assist None,Glasses Barriers to Learning None Other Aids No Hx Anesthesia No Reactions Hx Family Anesthesia Yes: Uncle with altered mental status. Reaction Hx Malignant No Hyperthermia Hx Blood No Transfusions Anesthesia Review No Requested [place] Feather Trimmer No alcohol intake current Alcohol intake a few times a week frequency Smoking Status Former smoker Tobacco type cigars how long ago did Quit 1979. patient quit smoking Substance Use Type [ does not use #R] Pain Present Pain Reported Comment Bilat knees. Musculoskeletal Difficulty Walking,Joint Pain Symptoms History of Falling ( Yes Recent or History of ) Patient is No completely paralyzed or completely immobile Mental Status Oriented to own ability Comment Will bring walker. Is patient on oxygen No ? Does patient have No HANKINS/SOB Hx Sleep Apnea Yes CPAP/BIPAP use prescribed and used routinely Will Bring CPAP/ Yes BIPAP DOS Currently Taking a Yes: Propranolol ER 60mg daily. Beta Aimee Can You Climb a Yes Flight of Stairs Without SOB Hx Chest Pain No Hx SOB No Hx Syncope or No Dizziness Anti-Coagulant No Therapy Has a Real Estate Intern No Cardiac Testing No Hx Pacemaker/ICD No Chronic UTI No Bladder Pattern Retention Urinary Catheter No Present Hx Urinary Self Yes: Every day or 2. Catheterization Comment UTI once per year. Diabetes No HgbA1C 5.8 Date 04/24/25 Hx Drug Resistant No Organism Presence of external Yes: Bilateral knees, ASD closure device, right IOL. or internal medical devices? Have you had any No close contact with someone diagnosed with COVID-19? Are you experiencing No symptoms any of these symptoms? Received a COVID Yes vaccine? Comment Denies covid last 8 weeks. Lives With spouse Current Living House Arrangements Number of Floors ( Two Floors Floors) Number of Stairs To 0 stairs to enter, 16 steps to bedroom with railing. Enter/Railing? Support System Spouse Does the Patient Yes Have Assistance After Surgery Patient Discharge Return Home Plan Description Additional comment Advised overnight LOS. Feels Safe in Yes Current Environment Do you have thoughts None of harming yourself or others? Do You Have Any No Spiritual Beliefs That May Affect Your HC Choices? Do You Have Any No Cultural Practices That May Affect Your HC Choices? Emergency Contact Fanta Jane - Name Emergency Contact [phone] Phone Number Advance Directives? Yes Advance Directives Yes on File Power of Cat And Dog Bather Yes Power of Cat And Dog Bather Fanta Jane - Name Power of Cat And Dog Bather [phone] Phone Number PAC Instructions Assistance for 24 hours post-op,Bring CPAP/BIPAP,Do not shave/clip surgical site,Durable medical equipment, Medications to take/avoid,No ETOH/petroleum product on skin DOS,NPO,Post-op transportation,Pre-surgical wash, Sensory aids,Sturdy shoes/comfortable clothes,Do not bring valuables and remove jewelry
[2025-06-13] MEDS: TAMSULOSIN 0.4 MG CAPSULE 0.8 MG PO (08:53)
[2025-06-13] MEDS: FINASTERIDE 5 MG TABLET PO (08:53)
[2025-06-13] MEDS: ASPIRIN EC 81 MG TABLET PO (08:53)
[2025-06-13] MEDS: PROPRANOLOL 10 MG TABLET 30 MG PO (08:53)
[2025-06-13] MEDS: DOCUSATE 100 MG CAPSULE PO (08:53)
[2025-06-13] MEDS: CHOLECALCIFEROL (VITAMIN D3) 5,000 UNIT TABLET 5000 UNIT PO (08:54)
[2025-06-13] MEDS: CYANOCOBALAMIN (VITAMIN B-12) 500 MCG TABLET PO (08:54)
--- NOTE | 2025-06-13 10:15 | PT.IPTN ---
Current Diagnoses Mechanical loosening of internal right knee prosthetic joint, initial encounter (06/12/25) Surgery Performed Operation Date: 06/12/25 07:45 Actual Procedures p right total knee arthroplasty(Right) - Sky Faulkner MD s Excision Lesion/Mass Extremity(Right) - Sky Faulkner MD Physical Therapy Treatment Note M2 PT-IP Current Condition Start: 06/12/25 16:24 Freq: NEEDED Status: Active Protocol: Document 06/12/25 16:24 KJ (Rec: 06/12/25 16:31 KJ [id number]) Physical Therapy Current Condition Current Condition Evaluation Date 06/12/25 Treatment Diagnosis Impaired mobility s/p R TKR revision Onset Date 06/12/25 M3 PT-IP Subjective Start: 06/12/25 16:24 Freq: NEEDED Status: Active Protocol: Document 06/13/25 10:15 AB (Rec: 06/13/25 12:59 AB [id number]) Subjective Physical Therapy Visit Type Type Treatment Note Visit Start Time 10:15 Visit Stop Time 10:40 Number of JOURNEYMAN GLAZIER Visits 0 Physical Therapy Visit Comments Patient Comments agreeable to do PT Therapy Pain Assessment Pain When Pain Assessed At Rest Pain Present Pain Present Pain Reported Location Right Knee Intensity 5 Scale Used Numeric (0 - 10) Pain Management Apply Cold,Distraction,Modification of Treatment,Re- Techniques positioning,Timing of Activity with Medications M4 PT-IP Mobility and Gait Start: 06/12/25 16:24 Freq: NEEDED Status: Active Protocol: Document 06/13/25 10:15 AB (Rec: 06/13/25 12:59 AB [id number]) PT-Bed Mobility Assessment Supine to Sit Supine to Sit Standby Assistance PT-Transfer Assessment Sit to and From Stand Sit to and from Standby Assistance,Contact Guard Assistance,1 Person Stand Assistance,Use of Upper Extremities Equipment Transfer Assistive Gait Belt,Front Wheeled Walker Device Orthotic/Prosthetic No Devices or Brace: Transfers Transfer Destination Chair Transfer Technique ambulated Transfer Ability Level of Assist Standby Assistance,Contact Guard Assistance,1 Person Assistance,Use of Upper Extremities Comments Mobility Comments pt in bed and agreeable to do PT. completed supine to sit SBA. able to sit on EOB SBA. sit to stand CGA and ambulated in room ~ 60 ft using FWW initially requiring CGA and towards the end of ambulation requiring SBA. presents with antalgic gait. cued for R quads activation. pt sat on the chair and positioned on the chair. call light and table placed within reach. Gait Assessment Gait Gait Assistance Standby Assistance,Contact Guard Assist Required: Distance (Feet) 60 Able to Maintain Yes Weight Bearing Status During Gait Assistive Devices Assistive Device Gait Belt,Front Wheeled Walker Orthotic/Prosthetic No Devices or Brace: Gait Deviations General Gait Pattern Antalgic,Decreased Stride Length,Decreased Feet Clearance Factors Limiting Gait Function Factors Limiting Decreased Activity Tolerance,Decreased Strength,Limited Gait Function Range of Motion,Pain,Poor Balance,Poor Safety Awareness M5 PT-IP Objective Assessments Start: 06/12/25 16:24 Freq: NEEDED Status: Active Protocol: Document 06/12/25 16:24 KJ (Rec: 06/12/25 16:31 KJ [id number]) Gross Range of Motion Upper Extremity ROM Assessment Within Functional Limits Lower Extremity ROM Assessment Right Impaired Strength Upper Extremity Strength Assessment Within Functional Limits Lower Extremity Strength Assessment Right Impaired Ankle Bilat ankle plantar/dorsiflex WNL M6 PT-IP Treatment Start: 06/12/25 16:24 Freq: NEEDED Status: Active Protocol: Document 06/13/25 10:15 AB (Rec: 06/13/25 12:59 AB [id number]) Physical Therapy Treatment Exercises Exercises Heel Slides Education Education Provided Weight Bearing Status,Safety M7 PT-IP Assessment and Plan Start: 06/12/25 16:24 Freq: NEEDED Status: Active Protocol: Document 06/13/25 10:15 AB (Rec: 06/13/25 12:59 AB [id number]) PT Summary Assessment and Plan Potential Rehabilitation Good Potential Summary Impairments Pain,ROM,Strength,Balance,Coordination,Sensation,Tone, Cognition,Bed Mobility,Transfers,Gait,Activity Tolerance Progress Towards Progressing Toward Goals Goals Assessment Summary pt requiring SBA to CGA with ambulation using FWW. pt plans to go home and spouse to assist him. pt stated that spouse knows how to assist him due to his previous knee surgeries. pt has out pt PT set up. Goals Bed Mobility Goal Standby Assistance Transfer Goal Standby Assistance,Front Wheeled Walker Gait Goal Standby Assistance,Front Wheel Walker Gait Distance 100 Days to Meet Goals 3 Frequency of Treatment Frequency Of Twice a Day Treatment Treatment Plan Physical Therapy Bed Mobility Training,Transfer Training,Gait Training, Treatment Plan Therapeutic Exercise,Balance Retraining,Post Op Education,Discharge Planning,Hot or Cold Pack, Neuromuscular Re-ed,Manual Therapy Weight Bearing Status Weight Bearing Weight Bear as Tolerated Status Allowed Weight RLE WBAT Bearing Amount ( enter % or #) (%) Recommendations To Nursing Amount of Assist 1 Person Assist Needed Discharge Recommendations PT Discharge Home with Assistance,Outpatient PT Recommendations Transportation Needs Private Vehicle at Discharge - PT assist 1
[2025-06-13] MEDS: TRANEXAMIC ACID 2,000 MG in SODIUM CHLORIDE 0.9% 100 ML 200 MG IV (11:12)
[2025-06-13] MEDS: SODIUM CHLORIDE 0.9% FLUSH 10 ML IV (11:15)
--- NOTE | 2025-06-13 13:08 | OT.IP.EVAL ---
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 Obstructive sleep apnea syndrome Primary insomnia Sepsis TIA (transient ischemic attack) Urinary retention Surgical History (Last Updated 05/30/25 @ 14:43 by Amisha Mckeon, RN) History of bilateral carpal tunnel release History of bowel resection (02/28/95) History of epidural steroid injection into lumbar spine (12/28/17) History of prostate surgery (~2018) History of total left knee replacement (02/09/17) Hx of anterior cruciate ligament surgery (02/09/17) Hx of appendectomy Hx of exploratory laparotomy (03/2024) Hx of right cataract extraction S/P lumbar laminectomy (02/07/18) S/P percutaneous patent foramen ovale closure (~2007) 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) [place] teeth removed (06/03/71) Occupational Therapy Inpatient Evaluation/Re-Eval M1 PT/OT-IP Prior Functional Status Start: 06/12/25 16:24 Freq: NEEDED Status: Active Protocol: Document 06/13/25 13:10 [facility] (Rec: 06/13/25 13:18 [facility] Desktop) Medical Review Prior Functional Status Medical History Yes Reviewed Mobility and Gait Indep w/out AD. Activities of Daily Indep Living and IADL's Social History Household Members spouse Living Arrangements House Number of Floors ( Two Floors Floors) Number of Stairs To No steps to the basement where pt will be staying Enter/Railing? initially. Home Environment High Toilet,Walk in Shower,Built-In Shower Seat Home Equipment Front Wheel Walker,Hand Held Shower,Long Handled Shoe Horn,Financial Adviser M2 OT-IP Current Condition Start: 06/13/25 13:10 Freq: Status: Active Protocol: Document 06/13/25 13:10 [facility] (Rec: 06/13/25 13:18 [facility] Desktop) Occupational Therapy Current Condition Current Condition Evaluation Date 06/13/25 Treatment Diagnosis S/P Revision R TKA M3 OT- IP Subjective and Pain Start: 06/13/25 13:10 Freq: Status: Active Protocol: Document 06/13/25 13:10 [facility] (Rec: 06/13/25 13:18 [facility] Desktop) OT- Subjective Occupational Therapy Visit Type Type Initial Evaluation Visit Start Time 12:31 Visit Stop Time 13:08 Occupational Therapy Visit Comments Patient Comments Pt agreed to get up to get dressed and brush his teeth. Patient/Caregiver TO go home. Goals OT Pain Assessment Pain When Pain Assessed At Rest Pain Present Pain Present Pain Reported Location Right Knee Intensity 5 Scale Used Numeric (0 - 10) M4 OT- IP ADL's Start: 06/13/25 13:10 Freq: Status: Active Protocol: Document 06/13/25 13:10 [facility] (Rec: 06/13/25 13:18 [facility] Desktop) OT ADL-Grooming General Evaluation Areas Needing Retrieving/Set-up of Grooming Items Assistance Comments OT Grooming Comments Able to stand with FWW at the sink. OT ADL-Oral Care General Eval Oral Care Ability Independent OT ADL-Dressing General Eval Lower Body Dressing Minimal Assistance Ability Areas Needing Shoes Assistance Comments OT Dressing Comments Spoke of sock aid but pt not interested at this time. Educated to dress his RLE first and take out last. OT ADL-Toileting Comments OT Toileting Pt agreed to take the urinal home. Comments OT ADL-Bathing Comments OT Bathing Comments Pt wanting to shower at home.Spoke of care of bandage for showering needs. M5 OT- IP IADL's Start: 06/13/25 13:10 Freq: Status: Active Protocol: Document 06/13/25 13:10 [facility] (Rec: 06/13/25 13:18 [facility] Desktop) OT-Instrumental Activities of Daily Living Home Safety Awareness Awareness of Need Good Awareness for Assistance at Home Ability to Problem Able to Problem Solve Solve Emergency Situations Medication Management Medication No Deficits Identified Management Money Management Money Management No Deficits Identified Meal Preparation Meal Preparation Caregiver Provides Assist Progressive Care Manager Progressive Care Manager Caregiver Provides Assist M6 OT- IP Functional Cognition Start: 06/13/25 13:10 Freq: Status: Active Protocol: Document 06/13/25 13:10 [facility] (Rec: 06/13/25 13:18 [facility] Desktop) Cognitive Factors Limiting Selfcare Function Cognitive Ability Level of Alertness Alert Patient Orientation Name,Age,Birthday,Month,Date,Year,Day of Week,Place, Situation Attention Span Capable of Focused Attention,Capable of Sustained Ability Attention Ability to Follow Able to Follow One Step Commands Commands Cognitive Comments Cognitive Assessment Pt intact, just reminders to dress his RLE first and Comments take out last. Also to back up all the way to surfaces prior to sitting down. OT- Vision and Hearing OT- Hearing Assessment OT- Hearing WFL Assessment M7 OT- IP Mobility and Balance Start: 06/13/25 13:10 Freq: Status: Active Protocol: Document 06/13/25 13:10 [facility] (Rec: 06/13/25 13:18 [facility] Desktop) OT-Transfer Assessment Sit to and From Stand Sit to and from Standby Assistance Stand Transfers Transfer Ability Standby Assistance Technique Transfer Destination Chair Transfer Technique Stand Step Pivot Devices Transfer Assistive Front Wheeled Walker Devices Comments Mobility Comments SBA to stand and walk to the sink with the FWW for oral /grooming needs. OT- Balance Assessment Sitting Balance and Reactions Static Sitting Normal Balance Ability Dynamic Sitting Good Balance Ability Standing Balance and Reactions Static Standing Good Balance Ability Dynamic Standing Fair Balance Ability M8 OT- IP Objective Assessments Start: 06/13/25 13:10 Freq: Status: Active Protocol: Document 06/13/25 13:10 [facility] (Rec: 06/13/25 13:18 [facility] Desktop) OT Gross Range of Motion Upper Extremity Range of Motion ROM Impairments WFL for needs. OT Strength Comments Strength Comments WFL for needs. OT- Coordination Assessment Comments Coordination Arthritic changes in his hands. Comments M9 OT- IP Assessment and Plan Start: 06/13/25 13:10 Freq: Status: Active Protocol: Document 06/13/25 13:10 [facility] (Rec: 06/13/25 13:18 [facility] Desktop) OT Summary Assessment and Plan Potential Rehabilitation Excellent Potential Analytic Complexity Low at Evaluation Summary OT Impairments Pain,Balance,Functional Mobility,Dressing,Toileting, Bathing,Toilet Transfers,Shower Transfers Progress Towards Progressing Toward Goals Goals Assessment Summary Pt low complexity and main barriers are pain and doing well so far. Pt has a supportive to assist pt and to be going to outpt PT. Goals Dressing Goal Independent Toileting Goal Independent Bathing Goal Standby Assistance Toilet Transfer Goal Independent Shower Transfer Goal Independent Days to Meet Goals 3 Treatment Plan OT Treatment Plan ADL Training,Functional Mobility,Patient/Family Education,Discharge Planning Discharge Recommendations OT Discharge Home with Assistance,Outpatient PT Recommendations Transportation Needs Private Vehicle at Discharge
--- NOTE | 2025-06-13 15:19 | PM.DS.IH.1 ---
History of Present Illness History of Present Illness Chief complaint: Revision of R TKA Narrative: Richmond is a pleasant 74 year old male who is seen today on POD#1 s/p revision R TKA by Dr. Faulkner. This morning he reports doing well overall, he states he feels ready to get home today. He has worked w/ both OT and PT did well. He states his pain has been well controlled overall but is still having a good amount of pain as expected. He has his post-op pain medications at home already but is requesting an Rx for Flexiril upon d/c since he is having muscle spasms. He has his first post-op PT appointment next week Monday. Discharge Providers Provider Date of admission: 06/12/25 06:03 Discharge Date: 06/13/25 Primary care physician: Sarah Yun MD Consults: 06/12/25 13:47 Consult to Discharge Planning Routine Comment: Consult to Occupational Therapy Evaluate & Treat Comment: Physician Instructions: Evaluate and treat Consult to Physical Therapy Evaluate & Treat Comment: Physician Instructions: Evaluate and Treat 06/13/25 12:20 Consult to Pharmacy Routine Comment: high fall risk Discharge provider: Mary Ellen Carpenter PA-C Summary Hospital Course Discharge Diagnosis: stable s/p R revision TKA Hospital Course: uncomplicated hospital course Time Spent with Patient Time spent: Less than 30 minutes Exam Vital Signs (past 8 hours): - 06/13/25 08:20 Temperature 97.0 F L Pulse Rate 47 L Respiratory Rate 15 Blood Pressure 118/59 L Pulse Oximetry 93 Oxygen Flow Rate 0 Oxygen Delivery Method Room Air,CPAP Oxygen Flow Rate 0 Narrative Exam Narrative: Patient lying comfortably in bedside during our interview today. No acute distress. Grossly normal alignment of the RLE with moderate swelling throughout the entire leg. 5/5 strength with DF, PF, EHL bilaterally. Gross sensation intact throughout bilateral lower extremities. Calves soft and non-tender bilaterally. Post-surgical dressing clean, dry and intact over the right knee without drainainge. 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 GERD (gastroesophageal reflux disease) Kidney stones CVA (cerebral vascular accident) (04/2020) Primary insomnia Obstructive sleep apnea syndrome Hypertension Surgical History (Updated 05/30/25 @ 14:43 by Amisha Mckeon RN) Hx of appendectomy Hx of anterior cruciate ligament surgery (02/09/17) History of epidural steroid injection into lumbar spine (12/28/17) S/P lumbar laminectomy (02/07/18) 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) History of total left knee replacement (02/09/17) Hx of right cataract extraction History of bilateral carpal tunnel release Hx of exploratory laparotomy (03/2024) [place] teeth removed (06/03/71) History of bowel resection (02/28/95) History of prostate surgery (~2018) S/P percutaneous patent foramen ovale closure (~2007) Family History Grandfather Stroke Sister PFO (patent foramen ovale) Social History household members: spouse Smoking Status: Former smoker alcohol intake: current Discharge Assessment & Plan Assessment and Plan Assessment: Stable s/p R Revision TKA Plan of Treatment: 1) Plan to discharge to home today with . He has been cleared by both PT and OT. 2) Continue multimodal pain management with ice to the knee for additional pain control. He has most of his post-op pain medications at home already but I will send Flexeril as well today. Take PO TXA for two more days. Start Cefadroxil Rx tomorrow. 3) ASA b.i.d. for DVT prophylaxis. 4) Start outpatient physical therapy to work on range of motion and mobility. 5) Keep dressing intact, clean, dry until 2 week postop appointment. No soaking the incision site in pools or tubs. No topical ointments or creams to the incision site. 6) Follow up at [facility] in 2 weeks for a postop appointment and wound check. All patient's questions were answered, they demonstrates understanding and are in agreement with the plan. Call our office if any questions or concerns arise. Discharge Plan Discharge Plan Patient Disposition: Home Provider Discharge Comment: I want you to take the tranexamic acid prescription for the next two days only, (tomorrow and Monday). I also want you to start the antibiotic prescription cefadroxil tomorrow. Discharge orders & Medications Prescriptions: New cyclobenzaprine 10 mg Tablet 10 mg PO Q6H PRN (Reason: Spasms) Qty: 20 0RF acetaminophen 500 mg capsule 1,000 mg PO Q8HR Qty: 90 0RF tranexamic acid 650 mg tablet 1,950 mg PO .QD 2 Days Qty: 6 0RF aspirin 81 mg Tablet,Delayed Release (Dr/Ec) 81 mg PO BID Qty: 90 0RF Continued finasteride 5 mg tablet 5 mg PO DAILY cholecalciferol (vitamin D3) 125 mcg (5,000 unit) capsule 125 mcg PO DAILY cyanocobalamin (vitamin B-12) [Vitamin B-12] 1,000 mcg tablet 1,000 mcg PO DAILY gabapentin 300 mg capsule 300 mg PO TID Qty: 270 0RF Rx Instructions: Take one capsule in the AM and two at bedtime. propranolol 60 mg capsule,extended release 24 hr 60 mg PO DAILY Qty: 90 0RF cefadroxil 500 mg capsule 500 mg PO BID Qty: 10 0RF meloxicam 15 mg tablet 15 mg PO DAILY PRN (Reason: pain) Qty: 30 1RF docusate sodium [Colace] 100 mg capsule 100 mg PO BID PRN (Reason: constipation) Qty: 60 0RF ondansetron 4 mg tablet,disintegrating 4 mg PO Q8H PRN (Reason: nausea and vomiting) Qty: 7 0RF oxycodone 5 mg tablet 5 mg PO Q6H PRN (Reason: pain) Qty: 30 0RF Rx Instructions: Do Note Take w/ Tramadol (DME) parking permit See Rx Instructions .Route .MEDSUPPLY Qty: 1 0RF Rx Instructions: As directed (DME) Resmed Airsense 10 CPAP Qty: 1 Patient Comments: Pressure: 6-12 cmH2O DME: Rx Instructions: As directed tamsulosin [Flomax] 0.4 mg capsule 0.8 mg PO DAILY Discontinued tramadol 50 mg tablet 50 mg PO BID PRN (Reason: pain) Qty: 30 1RF acetaminophen [Tylenol Arthritis Pain] 650 mg tablet extended release 1,300 mg PO Q12H Follow up/Referrals: Sarah Yun MD [Primary Care Provider, Family Practice] Sky Faulkner MD [Physician, Orthopedic Surgery] Diet/Activity/Treatments Diet: Diet as Tolerated Activity: Weightbearing as tolerated. Cold/Heat Therapy: Ice to the knee frequently to help reduce pain and swelling! Skin/Wound/Dressing Care Report to your healthcare provider any signs of infection, such as:: chills, fever, night sweats, unusual drainage and unusual redness Dressing: Keep dressing intact, clean and dry until 2 week post-op appointment. No soaking the incision site in pools or tubs. No topical ointments or creams to the incision site. Visit Report/Discharge Packet Instructions: DI for Knee Replacement, DI for Prescription Opioid Use Stand Alone Forms: Patient Portal/API, Stroke Signs & Symptoms Discharge Data Primary Care Provider: Sarah Yun Quality VTE Deep Vein Thrombosis/Pulmonary Embolism Present on Admission: No IH PROFEE Charge Codes Discharge inpatient/observation: 53218
--- NOTE | 2025-06-13 17:03 | PC.NURSE ---
Patient is A&OX4, VSS, afebrile on RA. He reports pain level is tolerable with PRN oxycodone, flexeril and scheduled tylenol. His JAVAD dressing is C/D/I, flashing green light. He tolerates PT/OT well this a.m. and PA notified of progress. PA arrives at the hospital this afternoon to evaluate patient and he is cleared for discharge home with his . He verbalizes understanding of medications, activity limitations, site care, s/sx of infection as well as follow up appointment. He is escorted via w/ch by [employer] with all of his belongings including CPAP, and FWW to private vehicle for discharge home with his at 1550 this afternoon.
== END 2025-06-13 15:50 | disposition home or self-care (01) | DRG 467 ==
PROVIDERS: Physician Assistant Surgical; Admitting Provider Orthopaedic Surgery Adult Reconstructive Orthopaedic Surgery; PCP Student in an Organized Health Care Education/Training Program; Referring Provider Student in an Organized Health Care Education/Training Program; Visit Provider Orthopaedic Surgery Adult Reconstructive Orthopaedic Surgery
PROC: 0SRC0J9 Replacement of Right Knee Joint with Synthetic Substitute, Cemented, Open Approach (ICD-10-PCS; principal; 2025-06-12 07:45)
PROC: 0SRC0J9 Replacement of Right Knee Joint with Synthetic Substitute, Cemented, Open Approach (ICD-10-PCS; 2025-06-12 07:45)
DX: T84.032A Mechanical loosening of internal right knee prosthetic joint, initial encounter (principal); N39.0 Urinary tract infection, site not specified; G47.33 Obstructive sleep apnea (adult) (pediatric); M25.561 Pain in right knee; G89.29 Other chronic pain; I10 Essential (primary) hypertension; Z87.891 Personal history of nicotine dependence; Y79.2 Prosthetic and other implants, materials and accessory orthopedic devices associated with adverse incidents; Z86.73 Personal history of transient ischemic attack (TIA), and cerebral infarction without residual deficits; R22.41 Localized swelling, mass and lump, right lower limb
CPT/HCPCS: 27487; 27634; 36680; 73560; 81001; 85014; 85018; 87070; 87075; 87205; 97110; 97116; 97161; 97165; 97530; 97535; C1776; C1713; J0689; J0690; J1100; J1885; J2274; J2405; J2704; J3010; J3373

== ENCOUNTER 2025-06-17 17:07 | Emergency (ER) | payer MEDICARE, OTHER, SELFPAY ==
[2025-06-12 14:48] VITALS: BMI 106.3
[2025-06-17] VITALS (7 sets, daily range): BP systolic 115–171; BP diastolic 63–83; PULSE 53–63; RESP 16–18; TEMP 37.1; O2SAT 93–99; BMI 26.4
--- NOTE | 2025-06-17 17:28 | ED.LOWEXIN ---
HPI - Extremity Injury (Lower) <Antonio Ortiz, DO - Last Filed: 06/17/25 17:43> General Chief Complaint: Extremity Injury, Lower Stated Complaint: post op right leg swelling Time Seen by Provider: 06/17/25 17:28 History of Present Illness HPI Narrative: Patient is a 74-year-old male with a history of essential tremors, hypertension, comes into the ED from home for evaluation of right lower extremity swelling. He states that he just had a surgery to his right knee for loosening of hardware, states that this was done on 06/12/25, states that he was discharged and went home on 06/13/2025. He states that he has been doing well has been able to ambulate appropriately, however he states this morning he noticed that his right foot started swelling. He denies any worsening or new pain. He is not complaining of any new trauma or falls. States that he tried to call the office but was unable to get a hold of anybody therefore came to the ED for further evaluation treatment. He states that he has been taking the aspirin twice a day for DVT prophylaxis. He denies any other symptoms at this time Related Data Home Medications ?Medication ?Instructions ?Recorded ?Confirmed Resmed Airsense 10 CPAP #1 ea 05/23/19 06/17/25 tamsulosin 0.4 mg capsule (Flomax) 0.8 mg PO DAILY 11/12/20 06/17/25 cholecalciferol (vitamin D3) 125 125 mcg PO DAILY 06/29/23 06/17/25 mcg (5,000 unit) capsule finasteride 5 mg tablet 5 mg PO DAILY 06/29/23 06/17/25 cyanocobalamin (vitamin B-12) 1,000 mcg PO DAILY 07/19/24 06/17/25 1,000 mcg tablet (Vitamin B-12) cefadroxil 500 mg capsule 500 mg PO BID 06/17/25 06/17/25 Previous Rx's ?Medication ?Instructions ?Recorded gabapentin 300 mg capsule 300 mg PO TID #270 caps 03/24/25 propranolol 60 mg capsule,24 60 mg PO DAILY #90 caps 04/18/25 hr,extended release docusate sodium 100 mg capsule 100 mg PO BID PRN constipation #60 05/28/25 (Colace) caps meloxicam 15 mg tablet 15 mg PO DAILY PRN pain #30 tabs 05/28/25 ondansetron 4 mg disintegrating 4 mg PO Q8H PRN nausea and 05/28/25 tablet vomiting #7 tabs oxycodone 5 mg tablet 5 mg PO Q6H PRN pain #30 tabs 05/28/25 parking permit #1 ea 05/28/25 acetaminophen 500 mg capsule 1,000 mg (2 x 500 mg) PO Q8HR #90 06/13/25 caps aspirin 81 mg tablet,delayed 81 mg PO BID #90 tabs 06/13/25 release cyclobenzaprine 10 mg tablet 10 mg PO Q6H PRN Spasms #20 tabs 06/13/25 Allergies Allergy/AdvReac Type Severity Reaction Status Date / Time levofloxacin (From [facility]) Allergy Mild RASH Verified 06/12/25 06:50 Review of Systems <Antonio Ortiz DO - Last Filed: 06/17/25 17:43> Review of Systems Narrative: General: Denies fever, chills, weight loss HEENT: Denies headache, eye drainage, eye irritation, head trauma, sore throat, voice change Cardiovascular: Denies any chest pain, palpitations, tachycardia Respiratory: Denies any shortness of breath, cough, wheeze, stridor GI/: Denies any abdominal pain, nausea, vomiting, diarrhea, bright red blood per rectum, melanotic stools, urinary frequency, urinary retention, dysuria, hematuria MSK: Positive right lower extremity swelling Skin: Denies any rashes, lesions, discoloration Neuro: Denies any headache, lightheadedness, dizziness, fainting, weakness Psych: Denies SI/HI Patient History <Antonio Ortiz, - Last Filed: 06/17/25 17:43> Medical History (Updated 06/17/25 @ 19:45 by Alex Kennedy MD) Bowel perforation (1994) Intention tremor Diverticulitis LUIS FERNANDO (acute kidney injury) TIA (transient ischemic attack) Urinary retention Sepsis 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 GERD (gastroesophageal reflux disease) Kidney stones CVA (cerebral vascular accident) (04/2020) Primary insomnia Obstructive sleep apnea syndrome Hypertension Surgical History (Updated 05/30/25 @ 14:43 by Amisha Mckeon RN) Hx of appendectomy Hx of anterior cruciate ligament surgery (02/09/17) History of epidural steroid injection into lumbar spine (12/28/17) S/P lumbar laminectomy (02/07/18) 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) History of total left knee replacement (02/09/17) Hx of right cataract extraction History of bilateral carpal tunnel release Hx of exploratory laparotomy (03/2024) [place] teeth removed (06/03/71) History of bowel resection (02/28/95) History of prostate surgery (~2018) S/P percutaneous patent foramen ovale closure (~2007) Family History Grandfather Stroke Sister PFO (patent foramen ovale) Social History household members: spouse alcohol intake: current alcohol intake frequency: other Exam <Antonio Ortiz DO - Last Filed: 06/17/25 17:43> Narrative Exam Narrative: General: Cooperative, well-developed, not in acute distress HEENT: Normocephalic, atraumatic, PERRLA, normal sclera, eyelids normal Neck: Active full range of motion, atraumatic Chest: Normal to inspection, negative crepitus, no overlying erythema ecchymosis Respiratory: Normal respiratory effort, not in acute respiratory distress, clear to auscultation bilaterally negative cough, wheeze, tachypnea, rhonchi, rales Cardiology: Regular rate rhythm negative gallop, murmur, rubs GI/: No tenderness to palpation, soft, non rigid, normal to inspection, exam deferred MSK: Patient with a +1 pitting edema to the right lower extremity, does have wound VAC to the right anterior knee. Palpable pulses to the dorsalis pedis and posterior tibialis Skin: No rashes or lesions noted Neuro: Alert awake oriented x3, moves all 4 extremities spontaneously, cranial nerves intact, able to answer all questions appropriately follows commands appropriately Psych: Cooperative, negative suicidal or homicidal ideations Initial Vital Signs Initial Vital Signs: Vital Signs Temperature 98.8 F 06/17/25 17:27 Pulse Rate 56 L 06/17/25 17:27 Respiratory Rate 16 06/17/25 17:27 Blood Pressure 171/83 H 06/17/25 17:27 Pulse Oximetry 99 06/17/25 17:27 Oxygen Delivery Method Room Air 06/17/25 17:27 <Alex Kennedy MD - Last Filed: 06/18/25 00:55> Initial Vital Signs Initial Vital Signs: Vital Signs Temperature 98.8 F 06/17/25 17:27 Pulse Rate 56 L 06/17/25 17:27 Respiratory Rate 16 06/17/25 17:27 Blood Pressure 171/83 H 06/17/25 17:27 Pulse Oximetry 99 06/17/25 17:27 Oxygen Delivery Method Room Air 06/17/25 17:27 Course <Antonio Ortiz DO - Last Filed: 06/17/25 17:43> Orders Ordered: ED Orders 06/17/25 17:37 US periph venous low extrem rt Stat 06/17/25 18:15 CBC Auto Diff [Complete Blood Count AUTO DIFF] Stat CMP [Comprehensive Metabolic Panel] Stat Vital Signs Vital signs: Vital Signs - 8 hr 06/17/25 17:27 06/17/25 17:27 06/17/25 17:30 Temperature 98.8 F Pulse Rate 56 L 63 61 Respiratory Rate 16 Blood Pressure 171/83 H Pulse Oximetry 99 97 97 Oxygen Delivery Method Room Air 06/17/25 17:55 06/17/25 17:55 06/17/25 18:00 Temperature Pulse Rate 57 L Respiratory Rate Blood Pressure 121/67 115/63 Pulse Oximetry 95 Oxygen Delivery Method 06/17/25 18:00 06/17/25 18:30 06/17/25 18:31 Temperature Pulse Rate 58 L 56 L 53 L Respiratory Rate 16 Blood Pressure Pulse Oximetry 94 97 93 Oxygen Delivery Method Room Air 06/17/25 18:31 06/17/25 19:53 Temperature Pulse Rate 56 L Respiratory Rate 18 Blood Pressure 131/71 128/64 Pulse Oximetry 95 Oxygen Delivery Method Room Air <Alex Kennedy MD - Last Filed: 06/18/25 00:55> Course Course Narrative: 18:00 Patient care transferred to [place] at the change of shift by Dr. Ortiz with right lower extremity venous duplex pending for DVT evaluation. This is a 74-year-old male patient with an underlying history of Who presents with right lower leg swelling after having had right knee hardware removal surgery done 5 days ago. No fever, warmth or redness of the leg. He is worried about the swelling. 19:00 Right lower extremity duplex ultrasound reveals no DVT. 19:15 I examined the patient and found no warmth or tenderness of the right calf. He has edema but recently underwent surgery of the right knee to remove hardware. Orders Ordered: ED Orders 06/17/25 17:37 US periph venous low extrem rt Stat 06/17/25 18:15 CBC Auto Diff [Complete Blood Count AUTO DIFF] Stat CMP [Comprehensive Metabolic Panel] Stat Vital Signs Vital signs: Vital Signs - 8 hr 06/17/25 17:27 06/17/25 17:27 06/17/25 17:30 Temperature 98.8 F Pulse Rate 56 L 63 61 Respiratory Rate 16 Blood Pressure 171/83 H Pulse Oximetry 99 97 97 Oxygen Delivery Method Room Air 06/17/25 17:55 06/17/25 17:55 06/17/25 18:00 Temperature Pulse Rate 57 L Respiratory Rate Blood Pressure 121/67 115/63 Pulse Oximetry 95 Oxygen Delivery Method 06/17/25 18:00 06/17/25 18:30 06/17/25 18:31 Temperature Pulse Rate 58 L 56 L 53 L Respiratory Rate 16 Blood Pressure Pulse Oximetry 94 97 93 Oxygen Delivery Method Room Air 06/17/25 18:31 06/17/25 19:53 Temperature Pulse Rate 56 L Respiratory Rate 18 Blood Pressure 131/71 128/64 Pulse Oximetry 95 Oxygen Delivery Method Room Air MDM - Extremity Injury (Lower) <Antonio Ortiz, DO - Last Filed: 06/17/25 17:43> Lab Data 06/17/25 18:15 06/17/25 18:15 Labs: Lab Results 06/17/25 Range/Units 18:15 WBC 5.6 (4.5-11.0) X10^3/uL RBC 3.46 L (4.5-5.9) X10^6/uL Hgb 11.2 L (13.5-17.5) g/dL Hct 32.6 L (41-53) % MCV 94.4 (80-100) fL MCH 32.3 (26-34) PG MCHC 34.3 (30-36) % RDW 13.7 (11.6-14.8) % Plt Count 204 (150-400) X10^3/uL Neut % (Auto) 60.9 (50-75) % Lymph % (Auto) 23.7 L (25-40) % [place] % (Auto) 11.0 (3-14) % Eos % (Auto) 3.7 (2-4) % Baso % (Auto) 0.7 (0-2) % Neut # (Auto) 3400 (9653-2472) /uL Lymph # (Auto) 1300 (2471-2552) /uL [place] # (Auto) 600 (0-900) /uL Eos # (Auto) 200 (0-450) /uL Baso # (Auto) 0 (0-100) /uL Sodium 137 (137-145) mmol/L Potassium 4.4 (3.4-5.1) mmol/L Chloride 105 (98-107) mmol/L Carbon Dioxide 27 (22-32) mmol/L BUN 19 (9-20) mg/dL Creatinine 0.75 (0.66-1.25) mg/dL Estimated GFR > 60 (>60) mL/min BUN/Creatinine Ratio 25.3 H (6-22) Glucose 99 (70-99) mg/dL Calcium 8.8 (8.4-10.2) mg/dL Total Bilirubin 0.7 (0.2-1.3) mg/dL AST 23 (17-59) IU/L ALT 17 (<50) IU/L Alkaline Phosphatase 48 (38-126) U/L Total Protein 6.1 L (6.3-8.2) g/dL Albumin 3.5 (3.5-5.0) g/dL Globulin 2.6 (1.7-4.1) g/dL Albumin/Globulin Ratio 1.3 (1.0-2.8) MDM Narrative Medical decision making narrative: Patient is a 74-year-old male with a history of essential tremors, hypertension, comes into the ED from home for evaluation of right lower extremity swelling. He states that he just had a surgery to his right knee for loosening of hardware, states that this was done on 06/12/25, states that he was discharged and went home on 06/13/2025. He states that he has been doing well has been able to ambulate appropriately, however he states this morning he noticed that his right foot started swelling. He denies any worsening or new pain. He is not complaining of any new trauma or falls. States that he tried to call the office but was unable to get a hold of anybody therefore came to the ED for further evaluation treatment. He states that he has been taking the aspirin twice a day for DVT prophylaxis. He denies any other symptoms at this time. On my exam patient does have wound VAC in place, he does have +1 pitting edema to the right lower extremity, no overlying erythema, does have palpable pulses to the dorsalis and posterior tibialis. Patient had lab work and ultrasound performed here in the emergency department Review of records show patient had mechanical loosening of internal right knee prosthetic joint requiring operation by Dr. Faulkner on 06/12/2025 patient did get a new patellar implant and had cement added to the tibial component at their discharge patient was told to be weight-bearing as tolerated, patient was placed on aspirin 81 b.i.d. for DVT prophylaxis, patient did initially have JAVAD wound VAC dressing. <Alex Kennedy MD - Last Filed: 06/18/25 00:55> Lab Data Labs: Lab Results 06/17/25 Range/Units 18:15 WBC 5.6 (4.5-11.0) X10^3/uL RBC 3.46 L (4.5-5.9) X10^6/uL Hgb 11.2 L (13.5-17.5) g/dL Hct 32.6 L (41-53) % MCV 94.4 (80-100) fL MCH 32.3 (26-34) PG MCHC 34.3 (30-36) % RDW 13.7 (11.6-14.8) % Plt Count 204 (150-400) X10^3/uL Neut % (Auto) 60.9 (50-75) % Lymph % (Auto) 23.7 L (25-40) % [place] % (Auto) 11.0 (3-14) % Eos % (Auto) 3.7 (2-4) % Baso % (Auto) 0.7 (0-2) % Neut # (Auto) 3400 (1951-4529) /uL Lymph # (Auto) 1300 (4479-8015) /uL [place] # (Auto) 600 (0-900) /uL Eos # (Auto) 200 (0-450) /uL Baso # (Auto) 0 (0-100) /uL Sodium 137 (137-145) mmol/L Potassium 4.4 (3.4-5.1) mmol/L Chloride 105 (98-107) mmol/L Carbon Dioxide 27 (22-32) mmol/L BUN 19 (9-20) mg/dL Creatinine 0.75 (0.66-1.25) mg/dL Estimated GFR > 60 (>60) mL/min BUN/Creatinine Ratio 25.3 H (6-22) Glucose 99 (70-99) mg/dL Calcium 8.8 (8.4-10.2) mg/dL Total Bilirubin 0.7 (0.2-1.3) mg/dL AST 23 (17-59) IU/L ALT 17 (<50) IU/L Alkaline Phosphatase 48 (38-126) U/L Total Protein 6.1 L (6.3-8.2) g/dL Albumin 3.5 (3.5-5.0) g/dL Globulin 2.6 (1.7-4.1) g/dL Albumin/Globulin Ratio 1.3 (1.0-2.8) Imaging Data Right lower extremity duplex venous: Radiologist's Impression: Impression: No findings of lower extremity deep venous thrombosis MDM Narrative Medical decision making narrative: Patient is a 74-year-old male with a history of essential tremors, hypertension, comes into the ED from home for evaluation of right lower extremity swelling. He states that he just had a surgery to his right knee for loosening of hardware, states that this was done on 06/12/25, states that he was discharged and went home on 06/13/2025. He states that he has been doing well has been able to ambulate appropriately, however he states this morning he noticed that his right foot started swelling. He denies any worsening or new pain. He is not complaining of any new trauma or falls. States that he tried to call the office but was unable to get a hold of anybody therefore came to the ED for further evaluation treatment. He states that he has been taking the aspirin twice a day for DVT prophylaxis. He denies any other symptoms at this time. On my exam patient does have wound VAC in place, he does have +1 pitting edema to the right lower extremity, no overlying erythema, does have palpable pulses to the dorsalis and posterior tibialis. Patient had lab work and ultrasound performed here in the emergency department Review of records show patient had mechanical loosening of internal right knee prosthetic joint requiring operation by Dr. Faulkner on 06/12/2025 patient did get a new patellar implant and had cement added to the tibial component at their discharge patient was told to be weight-bearing as tolerated, patient was placed on aspirin 81 b.i.d. for DVT prophylaxis, patient did initially have JAVAD wound VAC dressing. Negative venous duplex ultrasound of the right lower extremity for DVT. Patient has negative WBCs and generally reassuring lab work. This appears to be postoperative edema of the right lower extremity with no infection or DVT. Patient will follow up with primary care or with surgical team tomorrow morning regarding his symptoms. Return to the ER if worse. Discharge Plan Departure Patient Disposition: Home Clinical Impression: Edema of right lower extremity Instructions: DI for Peripheral Edema-Unilateral Activity Restrictions/Additional Instructions: Plan: Continue postoperative care including leg elevation. Contact your surgeon tomorrow for advice on follow up in continued management. Return to the ER if worse Prescriptions: No Action finasteride 5 mg tablet 5 mg PO DAILY cholecalciferol (vitamin D3) 125 mcg (5,000 unit) capsule 125 mcg PO DAILY cyanocobalamin (vitamin B-12) [Vitamin B-12] 1,000 mcg tablet 1,000 mcg PO DAILY gabapentin 300 mg capsule 300 mg PO TID Qty: 270 0RF Rx Instructions: Take one capsule in the AM and two at bedtime. propranolol 60 mg capsule,extended release 24 hr 60 mg PO DAILY Qty: 90 0RF cefadroxil 500 mg capsule 500 mg PO BID Patient Comments: Pt confused this medication cefadroxil with cefdinir. He completed cefdinir on 06/03/25 and started cefadroxil on 06/14/25. Rx Instructions: Take 1 capsule BID for 5 days; starting 06/14/25. cyclobenzaprine 10 mg Tablet 10 mg PO Q6H PRN (Reason: Spasms) Qty: 20 0RF aspirin 81 mg Tablet,Delayed Release (Dr/Ec) 81 mg PO BID Qty: 90 0RF acetaminophen 500 mg capsule 1,000 mg PO Q8HR Qty: 90 0RF meloxicam 15 mg tablet 15 mg PO DAILY PRN (Reason: pain) Qty: 30 1RF docusate sodium [Colace] 100 mg capsule 100 mg PO BID PRN (Reason: constipation) Qty: 60 0RF ondansetron 4 mg tablet,disintegrating 4 mg PO Q8H PRN (Reason: nausea and vomiting) Qty: 7 0RF oxycodone 5 mg tablet 5 mg PO Q6H PRN (Reason: pain) Qty: 30 0RF Rx Instructions: Do Note Take w/ Tramadol (DME) parking permit See Rx Instructions .Route .MEDSUPPLY Qty: 1 0RF Rx Instructions: As directed (DME) Resmed Airsense 10 CPAP Qty: 1 Patient Comments: Pressure: 6-12 cmH2O DME: Rx Instructions: As directed tamsulosin [Flomax] 0.4 mg capsule 0.8 mg PO DAILY Referrals: Sarah Yun MD [Primary Care Provider, Family Practice] Stand Alone Forms: Patient Portal/API
--- NOTE | 2025-06-17 17:37 | DI.US.S_ITS ---
PROCEDURE: US PERIP VENOUS LOW EXTREM RT INDICATIONS: swelling post op knee sx TECHNIQUE: Real-time imaging, as well as color and pulse Doppler interrogation, were performed of the lower extremity deep veins from the inguinal ligament to the popliteal fossa, with documentation of the visualized calf veins. COMPARISON: [facility], , [place] [facility] VENOUS LOW EXTREM RT, 11/22/2023, 16:34. FINDINGS: The common femoral, femoral, popliteal, and the visualized calf veins are normally compressible, and free of intraluminal thrombus. Color and pulse Doppler demonstrate normal phasic intraluminal flow. There is normal augmentation response to distal compression maneuver. IMPRESSION: No findings of lower extremity deep venous thrombosis. Dictated by: Santosh Colmenares M.D. on 06/17/2025 at 18:59 Approved by: Santosh Colmenares M.D. on 06/17/2025 at 19:00
[2025-06-17 18:32] LABS: Add Manual Diff / Slide Review NO; Hematocrit 32.6 % (41-53); Hemoglobin 11.2 g/dL (13.5-17.5); Lymphocytes Absolute Auto 1300 /uL (1100-4500); Mean Corpuscular HGB Conc 34.3 % (30-36); Mean Corpuscular Hemoglobin 32.3 PG (26-34); Mean Corpuscular Volume 94.4 fL (80-100); Platelet Count 204 X10^3/uL (150-400)
[2025-06-17 18:47] LABS: Alanine Aminotransferase 17 IU/L (<50); Albumin 3.5 g/dL (3.5-5.0); Albumin Globulin Ratio 1.3 (1.0-2.8); Alkaline Phosphatase 48 U/L (38-126); Blood Urea Nitrogen 19 mg/dL (9-20); Calcium 8.8 mg/dL (8.4-10.2); Carbon Dioxide 27 mmol/L (22-32); Chloride 105 mmol/L (98-107); Estimated Glomerular Filt Rate > 60 mL/min (>60); Globulin 2.6 g/dL (1.7-4.1); Glucose 99 mg/dL (70-99); HEMOLYSIS < 15 (0-50); Potassium 4.4 mmol/L (3.4-5.1); Sodium 137 mmol/L (137-145); Total Protein 6.1 g/dL (6.3-8.2)
== END 2025-06-17 19:55 | disposition home or self-care (01) ==
PROVIDERS: Student in an Organized Health Care Education/Training Program; Emergency Provider Emergency Medicine; PCP Student in an Organized Health Care Education/Training Program
DX: R60.9 Edema, unspecified (principal)
CPT/HCPCS: 36415; 80053; 85025; 93971; 99283; 99284

== ENCOUNTER → 2025-09-23 16:05 | Outpatient (CLI) | payer MEDICARE, OTHER, SELFPAY ==
[2025-06-12 14:48] VITALS: BMI 106.3
[2025-09-23 17:36] LABS: Blood Urea Nitrogen 20 mg/dL (9-20); Calcium 9.4 mg/dL (8.4-10.2); Carbon Dioxide 27 mmol/L (22-32); Chloride 105 mmol/L (98-107); Estimated Glomerular Filt Rate > 60 mL/min (>60); Glucose 109 mg/dL (70-99); HEMOLYSIS < 15 (0-50); Potassium 4.5 mmol/L (3.4-5.1); Sodium 138 mmol/L (137-145)
== END ==
PROVIDERS: PCP Student in an Organized Health Care Education/Training Program; Referring Provider Urology; Visit Provider Urology
DX: R33.9 Retention of urine, unspecified (principal); N40.1 Benign prostatic hyperplasia with lower urinary tract symptoms
CPT/HCPCS: 80048